=== PATIENT | female | born 1950 | race Caucasian/White ===

== ENCOUNTER 2020-05-06 08:23 | Outpatient (REF) | payer MEDICARE, SELFPAY ==
--- NOTE | 2020-05-06 08:27 | MM_ITS ---
EXAMINATION: MM SCREENING DIGITAL BREAST TOMOSYNTHESIS, BILATERAL CLINICAL INFORMATION: Screening. Asymptomatic. The lifetime risk of breast cancer based on the Tyrer-Cuzick Model is 5.4%. COMPARISON: Mammography: December 26, 2018 and studies dating back to July 21, 2010 TECHNIQUE: Digital breast tomosynthesis is performed in both the craniocaudal and mediolateral oblique views along with computer-aided detection (CAD). Synthesized 2D images are generated from the tomosynthesis. FINDINGS: The breasts are almost entirely fatty (ACR BI-RADS breast composition Category a). There are no significant masses, abnormal calcifications, or other abnormalities. MM/MM tomosynthesis screening BI IMPRESSION: There are no significant changes from prior study. ASSESSMENT: BI-RADS 1: Negative RECOMMENDATION: Routine annual mammography screening. This patient's information was entered into a reminder system with a target due date for their next mammogram.
== END 2020-05-06 08:24 | disposition home or self-care (01) ==
LOC: HO.MAMMO 08:23
DX: Z12.31 Encounter for screening mammogram for malignant neoplasm of breast (principal)
CPT/HCPCS: 77063; 77067

== ENCOUNTER → 2020-08-30 12:31 | Outpatient (BNVA) | payer MEDICARE, SELFPAY | PROVIDERS: PCP Internal Medicine; Visit Provider Internal Medicine | DX: I48.0 Paroxysmal atrial fibrillation (principal); H34.211 Partial retinal artery occlusion, right eye | CPT/HCPCS: 93005; 99212 ==

== ENCOUNTER 2020-09-29 11:51 | Outpatient (REF) | payer MEDICARE, SELFPAY ==
[2020-09-29 13:38] LABS: MANUAL DIFF FLAG NO
[2020-09-29 13:43] LABS: Basophils Percent Auto 0.5 % (0-2); Eosinophils Absolute Auto 0.1 X10*3/uL (0.0-0.4); Hematocrit 39.4 % (37-47); Hemoglobin 13.3 g/dl (12.0-16.0); Imm Gran Abs Auto 0.01 X10*3/uL (0.00-0.03); Imm Gran Pct Auto 0.3 % (0.0-0.4); Lymphocytes Absolute Auto 1.1 X10*3/uL (1.2-4.9); Lymphocytes Percent Auto 28.3 % (20-40); Mean Corpuscular HGB Conc 33.8 g/dl (31.0-35.0); Mean Corpuscular Hemoglobin 31.4 pg (27.0-33.0); Mean Corpuscular Volume 93.1 fL (80-98); Mean Platelet Volume 11.5 fL (9.4-12.3); Monocytes Absolute Auto 0.6 X10*3/uL (0.1-1.2); Monocytes Percent Auto 14.3 % (2-11); Neutrophils Absolute Auto 2.2 X10*3/uL (2.0-8.3); Neutrophils Percent Auto 54.6 % (45-73); Platelet Count 263 X10*3/uL (160-400); Red Blood Count 4.23 X10*6/uL (4.20-5.50); Red Cell Distribution Width 11.9 % (11.0-16.0)
[2020-09-29 14:05] LABS: Creatinine Urine 247.78 mg/dL; Microalbum/Creatinine Ratio Ur 9.6 ug/mg cr
[2020-09-29 14:06] LABS: Estimated Average Glucose 143 mg/dL; Hemoglobin A1c % 6.6 %
[2020-09-29 14:30] LABS: Alanine Aminotransferase 13 U/L (0-31); Albumin Level 4.4 g/dL (3.5-5.0); Alkaline Phosphatase 73 U/L (39-117); Anion Gap 12 (12-20); Aspartate Amino Transferase 16 U/L (5-31); Bilirubin Total 0.5 mg/dL (0.0-1.0); Blood Urea Nitrogen 13 mg/dL (9-16); Calcium 9.1 mg/dL (8.4-10.2); Carbon Dioxide 28 mmol/L (22-29); Chloride 102 mmol/L (96-108); Estimated Glomerular Filt Rate > 60; Glucose Random 151 mg/dL (60-115); Potassium 4.4 mmol/L (3.3-5.1); Sodium 138 mmol/L (135-145); Total Protein 7.4 g/dL (6.5-8.0)
[2020-09-29 14:41] LABS: Free T4 (Free Thyroxine) 1.24 ng/dL (0.71-1.85); Vitamin D 25-OH Total 46.2 ng/mL (>30)
== END 2020-09-29 11:52 | disposition home or self-care (01) ==
LOC: HO.10HDL 11:51
PROVIDERS: Visit Provider Internal Medicine
DX: I48.0 Paroxysmal atrial fibrillation (principal); I10 Essential (primary) hypertension; E03.9 Hypothyroidism, unspecified; E11.9 Type 2 diabetes mellitus without complications; E55.9 Vitamin D deficiency, unspecified
CPT/HCPCS: 36415; 80053; 82043; 82306; 83036; 84439; 84443; 85025

== ENCOUNTER → 2020-10-13 08:42 | Outpatient (BNVA) | payer MEDICARE, SELFPAY | PROVIDERS: PCP Internal Medicine; Visit Provider Internal Medicine | DX: I48.0 Paroxysmal atrial fibrillation (principal); H34.211 Partial retinal artery occlusion, right eye | CPT/HCPCS: 93005; 99212 ==

== ENCOUNTER → 2020-11-10 09:09 | Outpatient (REF) | payer MEDICARE, SELFPAY | LOC: HO.SL 09:09 | PROVIDERS: PCP Internal Medicine; Visit Provider Internal Medicine | DX: G47.33 Obstructive sleep apnea (adult) (pediatric) (principal); I48.0 Paroxysmal atrial fibrillation | CPT/HCPCS: 95806 ==

== ENCOUNTER → 2020-11-11 08:50 | Outpatient (REF) | payer MEDICARE, SELFPAY ==
--- NOTE | 2020-11-11 12:30 | ECG_ITS ---
Hook-up date: 2020-11-11 09:07:00 Duration: 47:59:00 Test Indications: PAF Medications: 358219 QRS complexes * Ventricular ectopics which represent % of total QRS comp. 232 Supraventricular ectopics which represent <1 % of total QRS comp. * Paced QRS complexs which represent % of total QRS comp. VENTRICULAR ECTOPY * Isolated * Bigeminal Cycles * Couplets * Runs * Beats in Runs * Beats LONGEST at * BPM at :: -- * Beats FASTEST at * BPM at :: -- SUPRAVENTRICULAR ECTOPY 155 Isolated 17 Couplets 10 Runs 44 Beats in Runs 9 Beats LONGEST at 122 BPM at 03:27:56 2020-11-13 3 Beats FASTEST at 159 BPM at 15:39:22 2020-11-11 HEART RATES 56 MIN at 05:32:34 2020-11-12 82 AVG 140 MAX at 11:36:29 2020-11-12 LONGEST RR 1.0880 secs at 04:37:34 2020-11-12 S-T LEVELS Channel 1 - 128 mm at 09:07:00 2020-11-11 - 128 mm at 09:07:00 2020-11-11 Channel 2 - 128 mm at 09:07:00 2020-11-11 - 128 mm at 09:07:00 2020-11-11 Channel 3 - 128 mm at 02:82:61 -- - 128 mm at 02:82:61 Basic rhythm Normal sinus rhythm No long pause or profound bradycardia Occasional Premature atrial complexes No diary submitted Referred By: Munir Ramirez Overread By: VIKTORIA KING MD
== END ==
LOC: HO.CARD 08:50
PROVIDERS: PCP Internal Medicine; Referring Provider Internal Medicine; Visit Provider Internal Medicine
DX: I48.0 Paroxysmal atrial fibrillation (principal)
CPT/HCPCS: 93226

== ENCOUNTER → 2020-12-08 13:05 | Outpatient (BNVA) | payer MEDICARE, SELFPAY | PROVIDERS: PCP Internal Medicine; Referring Provider Internal Medicine; Visit Provider Internal Medicine | DX: I48.0 Paroxysmal atrial fibrillation (principal); G47.33 Obstructive sleep apnea (adult) (pediatric); H34.211 Partial retinal artery occlusion, right eye; R07.2 Precordial pain | CPT/HCPCS: 99212 ==

== ENCOUNTER → 2020-12-21 13:17 | Outpatient (BNVA) | payer MEDICARE, SELFPAY | PROVIDERS: PCP Internal Medicine; Visit Provider Internal Medicine | DX: G47.33 Obstructive sleep apnea (adult) (pediatric) (principal); G47.34 Idiopathic sleep related nonobstructive alveolar hypoventilation | CPT/HCPCS: 99202 ==

== ENCOUNTER 2020-12-29 10:04 | Outpatient (REF) | payer MEDICARE, SELFPAY ==
[2020-12-29 10:53] LABS: Estimated Average Glucose 151 mg/dL; Hemoglobin A1c % 6.9 %
[2020-12-29 10:55] LABS: Glucose Urine UA NEG (NEG); Leukocyte Esterase Urine NEG (NEG); Nitrite Urine NEG (NEG); Urine Blood NEG (NEG); Urine Ketones NEG (NEG); Urine Protein NEG (NEG-TRACE)
[2020-12-29 10:56] LABS: Appearance Urine CLEAR; Color Urine YELLOW
[2020-12-29 11:10] LABS: Alanine Aminotransferase 15 U/L (0-31); Albumin Level 4.3 g/dL (3.5-5.0); Alkaline Phosphatase 87 U/L (39-117); Anion Gap 11 (12-20); Aspartate Amino Transferase 17 U/L (5-31); Bilirubin Total 0.6 mg/dL (0.0-1.0); Blood Urea Nitrogen 13 mg/dL (9-16); Calcium 9.5 mg/dL (8.4-10.2); Carbon Dioxide 31 mmol/L (22-29); Chloride 103 mmol/L (96-108); Estimated Glomerular Filt Rate > 60; Glucose Random 177 mg/dL (60-115); Potassium 4.6 mmol/L (3.3-5.1); Sodium 140 mmol/L (135-145); Total Protein 7.2 g/dL (6.5-8.0)
== END 2020-12-29 10:05 | disposition home or self-care (01) ==
LOC: HO.LAB 10:04
PROVIDERS: PCP Internal Medicine; Visit Provider Internal Medicine
DX: E11.9 Type 2 diabetes mellitus without complications (principal); I48.0 Paroxysmal atrial fibrillation; G47.33 Obstructive sleep apnea (adult) (pediatric); R30.0 Dysuria
CPT/HCPCS: 36415; 80053; 81003; 83036; 87086; 87088

== ENCOUNTER → 2021-02-28 13:00 | Outpatient (BNVA) | payer MEDICARE, SELFPAY | PROVIDERS: PCP Internal Medicine; Referring Provider Internal Medicine; Visit Provider Internal Medicine | DX: I48.0 Paroxysmal atrial fibrillation (principal); I65.23 Occlusion and stenosis of bilateral carotid arteries; R07.2 Precordial pain; G47.33 Obstructive sleep apnea (adult) (pediatric); H34.211 Partial retinal artery occlusion, right eye | CPT/HCPCS: 99212 ==

== ENCOUNTER → 2021-03-07 10:19 | Outpatient (BNVA) | payer MEDICARE, SELFPAY | PROVIDERS: PCP Internal Medicine; Visit Provider Internal Medicine | DX: G47.33 Obstructive sleep apnea (adult) (pediatric) (principal); G47.34 Idiopathic sleep related nonobstructive alveolar hypoventilation | CPT/HCPCS: 99212 ==

== ENCOUNTER 2021-03-15 13:33 | Outpatient (REF) | payer MEDICARE, SELFPAY ==
[2021-03-15 14:36] LABS: Urine Cytology See Pathology rpt
[2021-03-15 14:42] LABS: Glucose Urine UA NEG (NEG); Leukocyte Esterase Urine NEG (NEG); Nitrite Urine NEG (NEG); Specific Gravity - Urine <= 1.005 (1.005-1.025); Urine Blood 3+ (NEG); Urine Ketones NEG (NEG); Urine Protein TRACE MG/DL (NEG-TRACE)
[2021-03-15 14:50] LABS: Appearance Urine HAZY; Color Urine OTHER; RBC Urine 30-49 /HPF (0); Squamous Epithelial Cell Urine TRACE /LPF; WBC Urine 0-2 /HPF (0-4)
== END 2021-03-15 13:34 | disposition home or self-care (01) ==
LOC: HO.LAB 13:33
PROVIDERS: PCP Internal Medicine; Visit Provider Internal Medicine
DX: R31.9 Hematuria, unspecified (principal)
CPT/HCPCS: 81001; 87086; 88112

== ENCOUNTER 2021-04-21 11:45 | Outpatient (REF) | payer MEDICARE, SELFPAY ==
[2021-04-21 13:49] LABS: MANUAL DIFF FLAG NO
[2021-04-21 13:53] LABS: Basophils Percent Auto 0.3 % (0-2); Eosinophils Absolute Auto 0.1 X10*3/uL (0.0-0.4); Eosinophils Percent Auto 1.9 % (0-4); Hematocrit 37.4 % (37-47); Imm Gran Abs Auto 0.02 X10*3/uL (0.00-0.03); Imm Gran Pct Auto 0.3 % (0.0-0.4); Lymphocytes Absolute Auto 1.5 X10*3/uL (1.2-4.9); Lymphocytes Percent Auto 23.2 % (20-40); Mean Corpuscular HGB Conc 32.1 g/dl (31.0-35.0); Mean Corpuscular Hemoglobin 30.5 pg (27.0-33.0); Mean Corpuscular Volume 94.9 fL (80-98); Mean Platelet Volume 10.3 fL (9.4-12.3); Monocytes Absolute Auto 0.5 X10*3/uL (0.1-1.2); Monocytes Percent Auto 7.3 % (2-11); Neutrophils Absolute Auto 4.3 X10*3/uL (2.0-8.3); Platelet Count 324 X10*3/uL (160-400); Red Blood Count 3.94 X10*6/uL (4.20-5.50); Red Cell Distribution Width 12.1 % (11.0-16.0); White Blood Count 6.4 X10*3/uL (4.8-10.8)
[2021-04-21 14:03] LABS: Appearance Urine CLEAR; Color Urine YELLOW; Glucose Urine UA 250 MG/DL (NEG); Leukocyte Esterase Urine TRACE (NEG); Nitrite Urine NEG (NEG); Specific Gravity - Urine 1.015 (1.005-1.025); Urine Blood TRACE (NEG); Urine Ketones NEG (NEG); Urine Protein NEG (NEG-TRACE)
[2021-04-21 14:18] LABS: Mucus Urine 2+ /LPF; Renal Epithelial Cells Urine 1+ /LPF; Squamous Epithelial Cell Urine 1+ /LPF; WBC Urine 50-75 /HPF (0-4)
[2021-04-21 14:19] LABS: Estimated Average Glucose 154 mg/dL
[2021-04-21 14:25] LABS: Alanine Aminotransferase 21 U/L (0-31); Albumin Level 4.5 g/dL (3.5-5.0); Alkaline Phosphatase 83 U/L (39-117); Anion Gap 12 (12-20); Aspartate Amino Transferase 16 U/L (5-31); Bilirubin Total 0.4 mg/dL (0.0-1.0); Blood Urea Nitrogen 13 mg/dL (9-16); Calcium 9.7 mg/dL (8.4-10.2); Carbon Dioxide 28 mmol/L (22-29); Chloride 104 mmol/L (96-108); Estimated Glomerular Filt Rate > 60; Glucose Random 216 mg/dL (60-115); Iron 85 mcg/dL (30-160); Percent Iron Saturation 27 % (15-50); Potassium 4.4 mmol/L (3.3-5.1); Sodium 140 mmol/L (135-145); Total Iron Binding Capacity 315 mcg/dL (228-428); Total Protein 7.6 g/dL (6.5-8.0); Unsaturated Iron Binding 230 ug/dL
[2021-04-21 14:45] LABS: Creatinine Urine 52.98 mg/dL; Microalbumin Urine < 5.0 mg/L
[2021-04-21 14:48] LABS: Free T4 (Free Thyroxine) 1.49 ng/dL (0.71-1.85); Thyroid Stimulating Hormone 0.44 uIU/mL (0.32-4.0)
== END 2021-04-21 11:46 | disposition home or self-care (01) ==
LOC: HO.10HDL 11:45
PROVIDERS: Visit Provider Internal Medicine
DX: N20.0 Calculus of kidney (principal); I48.0 Paroxysmal atrial fibrillation; E11.9 Type 2 diabetes mellitus without complications; E03.9 Hypothyroidism, unspecified
CPT/HCPCS: 36415; 80053; 81001; 81003; 82043; 83036; 83540; 84439; 84443; 85025

== ENCOUNTER 2021-05-15 12:03 | Outpatient (REF) | payer MEDICARE, SELFPAY ==
--- NOTE | ~2021-05-15 | MM_ITS ---
EXAMINATION: MM SCREENING DIGITAL BREAST TOMOSYNTHESIS, BILATERAL CLINICAL INFORMATION: Screening. Asymptomatic. The lifetime risk of breast cancer based on the Tyrer-Cuzick Model is 6%. COMPARISON: Mammography: 05/06/2020, 12/26/2018, 12/23/2017 TECHNIQUE: Digital breast tomosynthesis is performed in both the craniocaudal and mediolateral oblique views along with computer-aided detection (CAD). Synthesized 2D images are generated from the tomosynthesis. FINDINGS: There are scattered areas of fibroglandular density (ACR BI-RADS breast composition Category b). There are no significant masses, abnormal calcifications, or other abnormalities. Parenchymal pattern is similar to prior exams. No developing density. No significant changes. MM/MM tomosynthesis screening BI IMPRESSION: No mammographic evidence of malignancy. ASSESSMENT: BI-RADS 1: Negative RECOMMENDATION: Routine annual mammography screening. This patient's information was entered into a reminder system with a target due date for their next mammogram.
== END 2021-05-15 12:04 | disposition home or self-care (01) ==
LOC: HO.MAMMO 12:03
PROVIDERS: Visit Provider Internal Medicine
DX: Z12.31 Encounter for screening mammogram for malignant neoplasm of breast (principal)
CPT/HCPCS: 77063; 77067

== ENCOUNTER → 2021-08-03 13:24 | Outpatient (BNVA) | payer MEDICARE, SELFPAY | PROVIDERS: PCP Internal Medicine; Visit Provider Internal Medicine | DX: G47.33 Obstructive sleep apnea (adult) (pediatric) (principal); G47.34 Idiopathic sleep related nonobstructive alveolar hypoventilation; R43.9 Unspecified disturbances of smell and taste | CPT/HCPCS: 99212 ==

== ENCOUNTER → 2021-08-16 11:07 | Outpatient (BNVA) | payer MEDICARE, SELFPAY | PROVIDERS: PCP Internal Medicine; Referring Provider Internal Medicine; Visit Provider Internal Medicine | DX: I65.23 Occlusion and stenosis of bilateral carotid arteries (principal); G47.33 Obstructive sleep apnea (adult) (pediatric); H34.211 Partial retinal artery occlusion, right eye; R07.2 Precordial pain; Z79.01 Long term (current) use of anticoagulants | CPT/HCPCS: 99212 ==

== ENCOUNTER 2021-09-01 09:12 | Outpatient (REF) | payer MEDICARE, SELFPAY ==
[2021-09-01 09:30] LABS: MANUAL DIFF FLAG NO
[2021-09-01 10:00] LABS: Basophils Percent Auto 0.6 % (0-2); Eosinophils Absolute Auto 0.2 X10*3/uL (0.0-0.4); Eosinophils Percent Auto 3.6 % (0-4); Hematocrit 37.8 % (37.0-47.0); Hemoglobin 12.3 g/dl (12.0-16.0); Imm Gran Abs Auto 0.01 X10*3/uL (0.00-0.03); Imm Gran Pct Auto 0.2 % (0.0-0.4); Lymphocytes Absolute Auto 1.9 X10*3/uL (1.2-4.9); Lymphocytes Percent Auto 35.5 % (20-40); Mean Corpuscular HGB Conc 32.5 g/dl (31.0-35.0); Mean Corpuscular Hemoglobin 29.5 pg (27.0-33.0); Mean Corpuscular Volume 90.6 fL (80.0-98.0); Mean Platelet Volume 10.7 fL (9.4-12.3); Monocytes Absolute Auto 0.4 X10*3/uL (0.1-1.2); Monocytes Percent Auto 7.4 % (2-11); Neutrophils Absolute Auto 2.8 x10*3/uL (2.0-8.3); Neutrophils Percent Auto 52.7 % (45-73); Platelet Count 238 X10*3/uL (160-400); Red Blood Count 4.17 X10*6/uL (4.20-5.50); White Blood Count 5.3 X10*3/uL (4.8-10.8)
[2021-09-01 10:26] LABS: Estimated Average Glucose 169 mg/dL; Hemoglobin A1c % 7.5 %
[2021-09-01 10:34] LABS: Alanine Aminotransferase 18 U/L (0-31); Albumin Level 4.2 g/dL (3.5-5.0); Alkaline Phosphatase 75 U/L (39-117); Anion Gap 9 (12-20); Aspartate Amino Transferase 17 U/L (5-31); Bilirubin Total 0.5 mg/dL (0.0-1.0); Blood Urea Nitrogen 13 mg/dL (9-16); Calcium 9.4 mg/dL (8.4-10.2); Carbon Dioxide 28 mmol/L (22-29); Chloride 105 mmol/L (96-108); Cholesterol 126 mg/dL; Estimated Glomerular Filt Rate > 60; Glucose Fasting 149 mg/dL (60-99); HDL Cholesterol 43 mg/dL; LDL Cholesterol Calculated 68 mg/dl; Potassium 4.4 mmol/L (3.3-5.1); Sodium 138 mmol/L (135-145); Total Protein 7.1 g/dL (6.5-8.0); Triglycerides 78 mg/dL
[2021-09-01 10:54] LABS: Free T4 (Free Thyroxine) 1.49 ng/dL (0.71-1.85); Thyroid Stimulating Hormone 0.32 uIU/mL (0.32-4.0)
[2021-09-01 11:18] LABS: Creatinine Urine 147.03 mg/dL; Microalbum/Creatinine Ratio Ur 9.5 ug/mg cr
== END 2021-09-01 09:13 | disposition home or self-care (01) ==
LOC: HO.LAB 09:12
PROVIDERS: PCP Internal Medicine; Visit Provider Internal Medicine
DX: E03.9 Hypothyroidism, unspecified (principal); I48.0 Paroxysmal atrial fibrillation; E78.00 Pure hypercholesterolemia, unspecified; E11.9 Type 2 diabetes mellitus without complications
CPT/HCPCS: 36415; 80053; 80061; 82043; 83036; 84439; 84443; 85025

== ENCOUNTER → 2021-09-20 11:07 | Outpatient (BNVA) | payer MEDICARE, SELFPAY | PROVIDERS: PCP Internal Medicine; Visit Provider Internal Medicine | DX: G47.33 Obstructive sleep apnea (adult) (pediatric) (principal); G47.34 Idiopathic sleep related nonobstructive alveolar hypoventilation; Z99.89 Dependence on other enabling machines and devices | CPT/HCPCS: 99212 ==

== ENCOUNTER 2021-12-04 11:04 | Outpatient (REF) | payer MEDICARE, SELFPAY ==
[2021-12-04 13:25] LABS: Anion Gap 14 (12-20); Blood Urea Nitrogen 9 mg/dL (9-16); Calcium 9.6 mg/dL (8.4-10.2); Carbon Dioxide 26 mmol/L (22-29); Chloride 103 mmol/L (96-108); Estimated Glomerular Filt Rate > 60; Glucose Random 199 mg/dL (60-115); Potassium 4.5 mmol/L (3.3-5.1); Sodium 138 mmol/L (135-145)
[2021-12-04 13:27] LABS: Estimated Average Glucose 157 mg/dL; Hemoglobin A1c % 7.1 %
[2021-12-04 13:51] LABS: Free T4 (Free Thyroxine) 1.59 ng/dL (0.71-1.85); Thyroid Stimulating Hormone 0.28 uIU/mL (0.32-4.0)
== END 2021-12-04 11:05 | disposition home or self-care (01) ==
LOC: HO.10HDL 11:04
PROVIDERS: Visit Provider Internal Medicine
DX: I48.0 Paroxysmal atrial fibrillation (principal); R00.2 Palpitations; E11.9 Type 2 diabetes mellitus without complications
CPT/HCPCS: 36415; 80048; 83036; 84439; 84443

== ENCOUNTER → 2022-01-30 08:20 | Outpatient (BNVA) | payer MEDICARE, SELFPAY | PROVIDERS: PCP Internal Medicine; Visit Provider Nurse Practitioner Family | DX: R00.2 Palpitations (principal); Z86.79 Personal history of other diseases of the circulatory system | CPT/HCPCS: 93005 ==

== ENCOUNTER → 2022-02-05 07:22 | Outpatient (REF) | payer MEDICARE, SELFPAY ==
--- NOTE | 2022-02-05 07:25 | HM_ITS ---
* Total monitoring time 3 days and 1 hour. * Underlying rhythm is sinus. Average rate 80/Min. Range 57 to 135/Min. * No atrial fibrillation or flutter or AV blocks or pauses. * Occasional supraventricular ectopy. Low burden. The episode described to be about a minute long seems to be sinus tachycardia at 138/Min. * Palpitations/skipping reported in diary associated with sinus tachycardia and supraventricular ectopy. MTDD
== END ==
LOC: HO.CARD 07:22
PROVIDERS: PCP Internal Medicine; Visit Provider Nurse Practitioner Family
DX: I48.0 Paroxysmal atrial fibrillation (principal); R00.2 Palpitations
CPT/HCPCS: 93242

== ENCOUNTER → 2022-02-28 12:48 | Outpatient (BNVA) | payer MEDICARE, SELFPAY | PROVIDERS: PCP Internal Medicine; Referring Provider Internal Medicine; Visit Provider Internal Medicine | DX: I48.0 Paroxysmal atrial fibrillation (principal); H34.211 Partial retinal artery occlusion, right eye; G47.33 Obstructive sleep apnea (adult) (pediatric); I65.23 Occlusion and stenosis of bilateral carotid arteries; Z79.01 Long term (current) use of anticoagulants; Z79.899 Other long term (current) drug therapy; Z99.89 Dependence on other enabling machines and devices | CPT/HCPCS: 99212 ==

== ENCOUNTER 2022-03-06 11:18 | Outpatient (REF) | payer MEDICARE, SELFPAY ==
[2022-03-06 13:57] LABS: Estimated Average Glucose 154 mg/dL
[2022-03-06 14:02] LABS: Alanine Aminotransferase 13 U/L (0-31); Albumin Level 4.3 g/dL (3.5-5.0); Alkaline Phosphatase 77 U/L (39-117); Anion Gap 13 (12-20); Aspartate Amino Transferase 16 U/L (5-31); Bilirubin Total 0.5 mg/dL (0.0-1.0); Blood Urea Nitrogen 14 mg/dL (9-16); Calcium 9.7 mg/dL (8.4-10.2); Carbon Dioxide 30 mmol/L (22-29); Chloride 102 mmol/L (96-108); Estimated Glomerular Filt Rate > 60; Glucose Random 189 mg/dL (60-115); Potassium 4.5 mmol/L (3.3-5.1); Sodium 140 mmol/L (135-145); Total Protein 7.2 g/dL (6.5-8.0)
[2022-03-06 14:24] LABS: Thyroid Stimulating Hormone 0.37 uIU/mL (0.32-4.0)
== END 2022-03-06 11:19 | disposition home or self-care (01) ==
LOC: HO.10HDL 11:18
PROVIDERS: Visit Provider Internal Medicine
DX: E11.9 Type 2 diabetes mellitus without complications (principal); E03.9 Hypothyroidism, unspecified; I10 Essential (primary) hypertension
CPT/HCPCS: 36415; 80053; 83036; 84439; 84443

== ENCOUNTER → 2022-03-22 10:56 | Outpatient (BNVA) | payer MEDICARE, SELFPAY | PROVIDERS: PCP Internal Medicine; Visit Provider Internal Medicine | DX: G47.33 Obstructive sleep apnea (adult) (pediatric) (principal); E66.9 Obesity, unspecified; Z68.33 Body mass index [BMI] 33.0-33.9, adult; I48.0 Paroxysmal atrial fibrillation | CPT/HCPCS: 99212 ==

== ENCOUNTER 2022-05-21 11:45 | Outpatient (REF) | payer MEDICARE, SELFPAY ==
--- NOTE | ~2022-05-21 | MM_ITS ---
EXAMINATION: MM SCREENING DIGITAL BREAST TOMOSYNTHESIS, BILATERAL CLINICAL INFORMATION: Screening. Asymptomatic. COMPARISON: Mammography: 05/15/2021, 05/06/2020, 12/26/2018 TECHNIQUE: Digital breast tomosynthesis is performed in both the craniocaudal and mediolateral oblique views along with computer-aided detection (CAD). Synthesized 2D images are generated from the tomosynthesis. FINDINGS: There are scattered areas of fibroglandular density (ACR BI-RADS breast composition Category b). There are no significant masses, abnormal calcifications, or other abnormalities. Parenchymal pattern is similar to prior studies. There is no developing density or architectural abnormality. The axilla and skin contours are unremarkable. No significant changes. MM/MM tomosynthesis screening BI IMPRESSION: No mammographic evidence of malignancy. ASSESSMENT: BI-RADS 1: Negative RECOMMENDATION: Routine annual mammography screening. This patient's information was entered into a reminder system with a target due date for their next mammogram.
== END 2022-05-21 11:46 | disposition home or self-care (01) ==
LOC: HO.MAMMO 11:45
PROVIDERS: PCP Internal Medicine; Visit Provider Internal Medicine
DX: Z12.31 Encounter for screening mammogram for malignant neoplasm of breast (principal)
CPT/HCPCS: 77063; 77067

== ENCOUNTER 2022-10-09 08:53 | Outpatient (REF) | payer MEDICARE, SELFPAY ==
[2022-10-09 11:06] LABS: MANUAL DIFF FLAG NO
[2022-10-09 11:07] LABS: Creatinine Urine 165.07 mg/dL; Microalbum/Creatinine Ratio Ur 10.9 ug/mg cr
[2022-10-09 11:14] LABS: Basophils Percent Auto 0.6 % (0-2); Eosinophils Absolute Auto 0.2 X10*3/uL (0.0-0.4); Hematocrit 38.4 % (37.0-47.0); Hemoglobin 12.6 g/dl (12.0-16.0); Lymphocytes Absolute Auto 1.6 X10*3/uL (1.2-4.9); Lymphocytes Percent Auto 34.4 % (20-40); Mean Corpuscular HGB Conc 32.8 g/dl (31.0-35.0); Mean Corpuscular Hemoglobin 30.6 pg (27.0-33.0); Mean Corpuscular Volume 93.2 fL (80.0-98.0); Mean Platelet Volume 11.5 fL (9.4-12.3); Monocytes Absolute Auto 0.5 X10*3/uL (0.1-1.2); Monocytes Percent Auto 10.1 % (2-11); Neutrophils Absolute Auto 2.4 x10*3/uL (2.0-8.3); Neutrophils Percent Auto 49.9 % (45-73); Platelet Count 245 X10*3/uL (160-400); Red Blood Count 4.12 X10*6/uL (4.20-5.50); Red Cell Distribution Width 11.8 % (11.0-16.0); White Blood Count 4.8 X10*3/uL (4.8-10.8)
[2022-10-09 12:08] LABS: Estimated Average Glucose 166 mg/dL; Hemoglobin A1c % 7.4 %
[2022-10-09 12:09] LABS: Alanine Aminotransferase 18 U/L (0-31); Albumin Level 4.2 g/dL (3.5-5.0); Alkaline Phosphatase 78 U/L (39-117); Anion Gap 11 (12-20); Aspartate Amino Transferase 21 U/L (5-31); Bilirubin Total 0.7 mg/dL (0.0-1.0); Blood Urea Nitrogen 12 mg/dL (9-16); Calcium 9.2 mg/dL (8.4-10.2); Carbon Dioxide 28 mmol/L (22-29); Chloride 105 mmol/L (96-108); Cholesterol 133 mg/dL; Estimated Glomerular Filt Rate > 60; Free T4 (Free Thyroxine) 1.42 ng/dL (0.71-1.85); Glucose Fasting 169 mg/dL (60-99); HDL Cholesterol 47 mg/dL; LDL Cholesterol Calculated 72 mg/dl; Potassium 4.4 mmol/L (3.3-5.1); Sodium 140 mmol/L (135-145); Thyroid Stimulating Hormone 0.47 uIU/mL (0.32-4.0); Total Protein 6.9 g/dL (6.5-8.0); Triglycerides 74 mg/dL; Vitamin D 25-OH Total 70.4 ng/mL (>30)
== END 2022-10-09 08:54 | disposition home or self-care (01) ==
LOC: HO.10HDL 08:53
PROVIDERS: Visit Provider Internal Medicine
DX: E78.00 Pure hypercholesterolemia, unspecified (principal); I48.0 Paroxysmal atrial fibrillation; E11.9 Type 2 diabetes mellitus without complications; E03.9 Hypothyroidism, unspecified; I10 Essential (primary) hypertension; E55.9 Vitamin D deficiency, unspecified
CPT/HCPCS: 36415; 80053; 80061; 82043; 82306; 83036; 84439; 84443; 85025

== ENCOUNTER → 2022-10-22 08:48 | Outpatient (BNVA) | payer MEDICARE, SELFPAY | PROVIDERS: PCP Internal Medicine; Visit Provider Internal Medicine | DX: G47.33 Obstructive sleep apnea (adult) (pediatric) (principal); E66.9 Obesity, unspecified; Z68.36 Body mass index [BMI] 36.0-36.9, adult | CPT/HCPCS: 99212 ==

== ENCOUNTER 2022-12-16 18:20 | Emergency (ER) | payer MEDICARE, SELFPAY ==
--- NOTE | 2022-12-16 | ECG_ITS ---
Test Reason : AFIBB Blood Pressure : / mmHG Vent. Rate : 097 BPM Atrial Rate : 097 BPM P-R Int : 128 ms QRS Dur : 086 ms QT Int : 358 ms P-R-T Axes : 034 015 043 degrees QTc Int : 454 ms Normal sinus rhythm Normal ECG When compared with ECG of 16-DEC-2022 18:27, Sinus rhythm has replaced Atrial fibrillation ST no longer depressed in Anterolateral leads Nonspecific T wave abnormality, improved in Inferior leads Referred By: Generic ED Physician Electronically Signed By:Spencer Wade
[2022-12-16 18:23] VITALS: BP 109/70; PULSE 135; RESP 18; TEMP 36.4; O2SAT 98; BMI 37.2
--- NOTE | 2022-12-16 18:27 | ECG_ITS ---
Test Reason : PALPITATIONS Blood Pressure : / mmHG Vent. Rate : 141 BPM Atrial Rate : 000 BPM P-R Int : 000 ms QRS Dur : 082 ms QT Int : 264 ms P-R-T Axes : 000 030 081 degrees QTc Int : 404 ms Atrial fibrillation with rapid ventricular response Nonspecific ST and T wave abnormality Abnormal ECG When compared with ECG of 06-SEP-2019 02:34, Atrial fibrillation has replaced Sinus rhythm Vent. rate has increased BY 49 BPM Nonspecific T wave abnormality, worse in Inferior leads Nonspecific T wave abnormality now evident in Lateral leads Referred By: Generic ED Physician Electronically Signed By:Spencer Wade
--- NOTE | 2022-12-16 18:31 | ED.GENADULT ---
HPI - General Adult General Chief complaint: Arrhythmia/Palpitations Stated complaint: afib/cant breath Time Seen by Provider: 12/16/22 21:49 Source: patient and family Mode of arrival: ambulatory Limitations: no limitations History of Present Illness HPI narrative: 72-year-old female with history of paroxysmal AFib patient is taking Eliquis and diltiazem for AFib management. Patient follow-up with Dr. 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 Ramirez to take 1 extra dose of diltiazem and wait 1 hour if she is not converting to sinus rhythm to come to the ED while patient waiting in the emergency department patient converted into a sinus rhythm. Patient has no CP, no weakness, no numbness, no sign of strokes. Patient mentioned that Eliquis was held for 3 days for lithotripsy, patient just resumed her Eliquis today. Related Data Home Medications Medication Instructions Recorded Confirmed cholecalciferol (vitamin D3) 100 100 mcg PO DAILY 08/22/20 03/22/22 mcg (4,000 unit) capsule levothyroxine 100 mcg tablet 100 mcg PO DAILY 08/22/20 03/22/22 (Synthroid) metformin 500 mg tablet,extended 500 mg PO DAILY 12/08/20 03/22/22 release 24 hr pantoprazole 40 mg tablet,delayed 40 mg PO DAILY 08/03/21 03/22/22 release gabapentin 300 mg capsule mg PO 10/22/22 mirabegron 25 mg tablet,extended 25 mg PO DAILY 10/22/22 release 24 hr (Myrbetriq) Previous Rx's Medication Instructions Recorded apixaban 5 mg tablet (Eliquis) 5 mg PO BID #180 tabs 03/20/22 rosuvastatin 40 mg tablet (Crestor) 40 mg PO DAILY #90 tabs 03/21/22 diltiazem HCl 120 mg 120 mg PO DAILY #90 caps 07/30/22 capsule,extended release 24 hr (Cardizem CD) Allergies Allergy/AdvReac Type Severity Reaction Status Date / Time Sulfa (Sulfonamide Allergy Intermediate RASH Verified 12/16/22 18:23 Antibiotics) [SULFA (SULFONAMIDE ANTIBIOTICS)] MONSULFITES Allergy Severe ANAPHYLAXIS Uncoded 10/22/22 09:16 Review of Systems Review of Systems: All other systems are reviewed and are negative Constitutional: Reports as per HPI and Reports no additional constitutional complaints Eyes: Reports as per HPI and Reports no additional eye complaints Reports system reviewed and no additional complaints, except as documented Cardiovascular: Reports as per HPI and Reports no additional cardiovascular complaints Respiratory: Reports as per HPI and Reports no additional respiratory complaints Gastrointestinal: Reports as per HPI and Reports no additional gastrointestinal complaints Genitourinary: Reports no additional female genitourinary complaints Musculoskeletal: Reports no additional musculoskeletal complaints Skin/Breast: Reports system reviewed and no additional complaints, except as docu Psychiatric: Reports no additional psychiatric complaints Endocrine: Reports no additional endocrine complaints Hematologic/Lymphatic: Reports no additional hematologic/lymphatic complaints Allergic/Immunologic: Reports no additional allergic/immunologic complaints Reports system reviewed and no additional complaints, except as documented and Reports Abnormal speech present [facility] Past Medical History Medical History Bilateral carotid artery stenosis Cholesterol retinal embolus of right eye Nocturnal hypoxemia Obesity (BMI 30-39.9) Paroxysmal atrial fibrillation Taste disorder Surgical History History of section History of knee surgery Family History Family History Father CVD (cardiovascular disease) Mother No problems noted. Social History Social History Alcohol intake: never Patient Tobacco Use Status: Former Tobacco user Smoked in Last 30 Days: No Use of substances other than those prescribed or required for medical reasons: No Advance Directives: No Advance Directives Information Provided: No Physical Exam ED Vital Signs: Vital Signs - 24 hr 12/16/22 18:23 12/16/22 19:26 12/16/22 22:00 Temperature 97.6 F 98.0 F 97.9 F Pulse Rate 135 H 94 82 Respiratory Rate 18 16 15 Blood Pressure 109/70 142/78 H 121/53 L Pulse Oximetry 98 98 98 Oxygen Delivery Method Room Air Room Air Room Air BMI result Body Mass Index 37.2 Vital signs have been reviewed as appeared to be correct. Blood pressure normal. Heart rate normal. Respiration rate normal. Temperature normal. Oxygen saturation normal. Appearance: Alert. Oriented X3. No acute distress. Head: Normal external exam. Normocephalic. Atraumatic. No Hammonds signs noted. No raccoon eyes noted Eyes: PERRLA. EOMI. Conjunctiva and sclera normal. Eyelids normal. ENT: TM's Normal. Pharynx normal. Uvula midline. Moist mucous membranes. No trismus noted. No drooling noted. No muffled voice noted. Neck: Normal inspection. Neck supple. FROM. No adenopathy. Thyroid Normal. No meningeal signs. No neck mass noted. CVS: Normal heart rate and rhythm. Heart sound normal. No murmurs noted. Pulses normal throughout. Respiratory: No respiratory distress. Painless inspiration. Breath sounds normal. No wheezes/rales/rhonchi noted. Chest nontender. No accessory muscle usage noted or decreased air movement noted. Abdomen: Soft and nontender. Bowel sounds normal in all 4 quadrants. No distention noted. No organomegaly noted. No visible injury noted. Back: No CVA tenderness. Full range of motion noted. Skin: Skin warm and dry. Normal skin color. Normal skin turgor. No rashes/lesions/lacerations noted. Extremities: No lower extremity edema. Extremities exhibit normal range of motion. Extremities nontender. Neuro: Oriented X 3. Cranial nerve exam: II-XII are grossly intact No motor deficit. No sensory deficit. Reflexes normal. Course Course Course Narrative: RME: 72 yold female presents to the ED for palpitaions. Patient has pmh of afib and is on eliquis. Heart 130s. EKG and labs ordered. patient to be brought inside Reevaluation(s) Reevaluation #1: 72-year-old female with history of paroxysmal atrial fibrillation patient now is comfortable with no symptoms, no CP, no SOB, now in normal sinus rhythm. Patient was instructed to follow up with Dr. Ramirez continue with Eliquis and taken diltiazem on a regular basis. Medical Decision Making Differential Diagnosis Differential Diagnoses: The differential diagnosis associated with the presentation includes (AFib with RVR, ACS, CHF, electrolyte abnormalities, hypercoagulability, severe anemia.) Admission/Observation Consideration of admission/observation: Escalation of care including admission/observation considered Lab Data MDM Lab Attestation statement: I reviewed the patient's lab results. 12/16/22 18:55 12/16/22 18:55 Labs: Lab Results 12/16/22 12/16/22 12/16/22 Range/Units 18:54 18:55 18:55 WBC 7.8 (4.8-10.8) X10*3/uL RBC 4.07 L (4.20-5.50) X10*6/uL Hgb 12.4 (12.0-16.0) g/dl Hct 37.9 (37.0-47.0) % MCV 93.1 (80.0-98.0) fL MCH 30.5 (27.0-33.0) pg MCHC 32.7 (31.0-35.0) g/dl RDW 12.1 (11.0-16.0) % Plt Count 247 (160-400) X10*3/uL MPV 10.6 (9.4-12.3) fL Immature Gran % (Auto) 0.3 (0.0-0.4) % Neut % (Auto) 69.4 (45-73) % Lymph % (Auto) 18.9 L (20-40) % Bulloch % (Auto) 8.4 (2-11) % Eos % (Auto) 2.7 (0-4) % Baso % (Auto) 0.3 (0-2) % Lymph # (Auto) 1.5 (1.2-4.9) X10*3/uL Bulloch # (Auto) 0.7 (0.1-1.2) X10*3/uL Eos # (Auto) 0.2 (0.0-0.4) X10*3/uL Baso # (Auto) 0.0 (0.0-0.2) X10*3/uL Abs Immat Gran (auto) 0.02 (0.00-0.03) X10*3/uL Absolute Neuts (auto) 5.4 (2.0-8.3) x10*3/uL Absolute Nucleated RBC 0.000 (0.0-0.012) X10*3/uL Nucleated RBC % (auto) 0.0 (0.0-0.2) /100WBC PT 11.1 (10.0-13.1) SEC INR 1.0 (0.9-1.1) APTT 30.2 (26.0-36.4) SEC Sodium 145 (135-145) mmol/L Potassium 4.4 (3.3-5.1) mmol/L Chloride 106 (96-108) mmol/L Carbon Dioxide 28 (22-29) mmol/L Anion Gap 15 (12-20) BUN 16 (9-16) mg/dL Creatinine 0.96 (0.5-1.4) mg/dL Estim Creat Clear Calc 64.3 Estimated GFR 57 Random Glucose 339 H (60-115) mg/dL Calcium 9.7 (8.4-10.2) mg/dL Total Bilirubin 0.4 (0.0-1.0) mg/dL AST 16 (5-31) U/L ALT 15 (0-31) U/L Alkaline Phosphatase 108 (39-117) U/L Troponin I High Sens (<3.5-17.0) ng/L B-Natriuretic Peptide (<100) pg/mL Total Protein 7.3 (6.5-8.0) g/dL Albumin 4.2 (3.5-5.0) g/dL TSH 3.82 (0.32-4.0) uIU/mL 12/16/22 12/16/22 Range/Units 18:55 18:58 WBC (4.8-10.8) X10*3/uL RBC (4.20-5.50) X10*6/uL Hgb (12.0-16.0) g/dl Hct (37.0-47.0) % MCV (80.0-98.0) fL MCH (27.0-33.0) pg MCHC (31.0-35.0) g/dl RDW (11.0-16.0) % Plt Count (160-400) X10*3/uL MPV (9.4-12.3) fL Immature Gran % (Auto) (0.0-0.4) % Neut % (Auto) (45-73) % Lymph % (Auto) (20-40) % Bulloch % (Auto) (2-11) % Eos % (Auto) (0-4) % Baso % (Auto) (0-2) % Lymph # (Auto) (1.2-4.9) X10*3/uL Bulloch # (Auto) (0.1-1.2) X10*3/uL Eos # (Auto) (0.0-0.4) X10*3/uL Baso # (Auto) (0.0-0.2) X10*3/uL Abs Immat Gran (auto) (0.00-0.03) X10*3/uL Absolute Neuts (auto) (2.0-8.3) x10*3/uL Absolute Nucleated RBC (0.0-0.012) X10*3/uL Nucleated RBC % (auto) (0.0-0.2) /100WBC PT (10.0-13.1) SEC INR (0.9-1.1) APTT (26.0-36.4) SEC Sodium (135-145) mmol/L Potassium (3.3-5.1) mmol/L Chloride (96-108) mmol/L Carbon Dioxide (22-29) mmol/L Anion Gap (12-20) BUN (9-16) mg/dL Creatinine (0.5-1.4) mg/dL Estim Creat Clear Calc Estimated GFR Random Glucose (60-115) mg/dL Calcium (8.4-10.2) mg/dL Total Bilirubin (0.0-1.0) mg/dL AST (5-31) U/L ALT (0-31) U/L Alkaline Phosphatase (39-117) U/L Troponin I High Sens < 2.7 (<3.5-17.0) ng/L B-Natriuretic Peptide 67 (<100) pg/mL Total Protein (6.5-8.0) g/dL Albumin (3.5-5.0) g/dL TSH (0.32-4.0) uIU/mL Independent Interpretation I performed an independent interpretation of an: EKG Discharge Plan Discharge Clinical Impression: AF (paroxysmal atrial fibrillation) Patient Disposition: Home, Self-Care Instructions: A-fib (Atrial Fibrillation) (ED) Prescriptions: No Action Eliquis 5 mg tablet 5 mg PO BID Qty: 180 4RF rosuvastatin [Crestor] 40 mg tablet 40 mg PO DAILY Qty: 90 3RF diltiazem HCl [Cardizem CD] 120 mg capsule,extended release 24hr 120 mg PO DAILY Qty: 90 3RF levothyroxine [Synthroid] 100 mcg tablet 100 mcg PO DAILY cholecalciferol (vitamin D3) 100 mcg (4,000 unit) capsule 100 mcg PO DAILY metformin 500 mg tablet extended release 24 hr 500 mg PO DAILY Myrbetriq 25 mg tablet extended release 24 hr 25 mg PO DAILY gabapentin 300 mg capsule PO pantoprazole 40 mg tablet,delayed release (DR/EC) 40 mg PO DAILY Referrals: Sánchez Metzger MD [Primary Care Provider] - Munir Ramirez MD [Physician] - Interventions: ED Discharge Assessment Last Done: 12/16/22 22:20 Discharge Date/Time: 12/16/22 22:20
--- NOTE | 2022-12-16 19:00 | PC.NURSE ---
patient a&ox3, environmental monitoring specialist applied, pt in afib in triage ekg, environmental monitoring specialist in room showed afib, this nurse was obtaining patient history and inserting iv/drawing labs and patient noted to convert to nsr 90s, additional ekg was ordered and tech notified to perform ekg, pt states she felt like she converted, call woodward within reach, will continue to monitor.
[2022-12-16 19:03] LABS: MANUAL DIFF FLAG NO
[2022-12-16 19:05] LABS: Basophils Percent Auto 0.3 % (0-2); Eosinophils Absolute Auto 0.2 X10*3/uL (0.0-0.4); Eosinophils Percent Auto 2.7 % (0-4); Hematocrit 37.9 % (37.0-47.0); Hemoglobin 12.4 g/dl (12.0-16.0); Imm Gran Abs Auto 0.02 X10*3/uL (0.00-0.03); Imm Gran Pct Auto 0.3 % (0.0-0.4); Lymphocytes Absolute Auto 1.5 X10*3/uL (1.2-4.9); Lymphocytes Percent Auto 18.9 % (20-40); Mean Corpuscular HGB Conc 32.7 g/dl (31.0-35.0); Mean Corpuscular Hemoglobin 30.5 pg (27.0-33.0); Mean Corpuscular Volume 93.1 fL (80.0-98.0); Mean Platelet Volume 10.6 fL (9.4-12.3); Monocytes Absolute Auto 0.7 X10*3/uL (0.1-1.2); Monocytes Percent Auto 8.4 % (2-11); Neutrophils Absolute Auto 5.4 x10*3/uL (2.0-8.3); Neutrophils Percent Auto 69.4 % (45-73); Platelet Count 247 X10*3/uL (160-400); Red Blood Count 4.07 X10*6/uL (4.20-5.50); Red Cell Distribution Width 12.1 % (11.0-16.0); White Blood Count 7.8 X10*3/uL (4.8-10.8)
[2022-12-16 19:15] LABS: Prothrombin Time 11.1 SEC (10.0-13.1)
[2022-12-16 19:18] LABS: Partial Thromboplastin Time 30.2 SEC (26.0-36.4)
[2022-12-16 19:26] VITALS: BP 142/78; PULSE 94; RESP 16; TEMP 36.7; O2SAT 98
--- NOTE | 2022-12-16 19:27 | MHC.EDTECH ---
PT REPEATED EKG TAKEN AND WAS READ BY PROVIDER ,VITALS SIGN TAKEN ,PT AT BEDSIDE .
[2022-12-16 19:34] LABS: B Type Natriuretic Peptide 67 pg/mL (<100)
[2022-12-16 19:35] LABS: Alanine Aminotransferase 15 U/L (0-31); Albumin Level 4.2 g/dL (3.5-5.0); Alkaline Phosphatase 108 U/L (39-117); Anion Gap 15 (12-20); Aspartate Amino Transferase 16 U/L (5-31); Bilirubin Total 0.4 mg/dL (0.0-1.0); Blood Urea Nitrogen 16 mg/dL (9-16); Calcium 9.7 mg/dL (8.4-10.2); Carbon Dioxide 28 mmol/L (22-29); Chloride 106 mmol/L (96-108); Creatinine Clr Calc Pharmacy 64.3; Estimated Glomerular Filt Rate 57; Glucose Random 339 mg/dL (60-115); Potassium 4.4 mmol/L (3.3-5.1); Sodium 145 mmol/L (135-145); Total Protein 7.3 g/dL (6.5-8.0)
[2022-12-16 19:38] LABS: Troponin-I High Sensitivity < 2.7 ng/L (<3.5-17.0)
[2022-12-16 19:51] LABS: TSH reflex Free T4 3.82 uIU/mL (0.32-4.0)
[2022-12-16 22:00] VITALS: BP 121/53; PULSE 82; RESP 15; TEMP 36.6; O2SAT 98
--- NOTE | 2022-12-16 22:10 | MHC.EDTECH ---
2200 rounding done ,vitals sign taken ,pt waiting for discharge paper work .
== END 2022-12-16 22:20 | disposition home or self-care (01) ==
PROVIDERS: Physician Assistant; Emergency Provider Emergency Medicine; PCP Internal Medicine
DX: I48.0 Paroxysmal atrial fibrillation (principal); R00.2 Palpitations; R06.02 Shortness of breath; Z79.01 Long term (current) use of anticoagulants; Z79.899 Other long term (current) drug therapy
CPT/HCPCS: 36415; 80053; 83880; 84443; 84484; 85025; 85610; 85730; 93005; 99283; 99285

== ENCOUNTER 2023-02-05 10:08 | Outpatient (REF) | payer MEDICARE, SELFPAY ==
[2023-02-05 10:31] LABS: MANUAL DIFF FLAG NO
[2023-02-05 10:48] LABS: Basophils Percent Auto 0.6 % (0-2); Eosinophils Absolute Auto 0.3 X10*3/uL (0.0-0.4); Eosinophils Percent Auto 6.8 % (0-4); Hematocrit 39.1 % (37.0-47.0); Hemoglobin 12.6 g/dl (12.0-16.0); Imm Gran Abs Auto 0.02 X10*3/uL (0.00-0.03); Imm Gran Pct Auto 0.4 % (0.0-0.4); Lymphocytes Percent Auto 19.8 % (20-40); Mean Corpuscular HGB Conc 32.2 g/dl (31.0-35.0); Mean Corpuscular Hemoglobin 30.4 pg (27.0-33.0); Mean Corpuscular Volume 94.2 fL (80.0-98.0); Mean Platelet Volume 10.7 fL (9.4-12.3); Monocytes Absolute Auto 0.6 X10*3/uL (0.1-1.2); Monocytes Percent Auto 12.8 % (2-11); Neutrophils Absolute Auto 2.9 x10*3/uL (2.0-8.3); Neutrophils Percent Auto 59.6 % (45-73); Platelet Count 254 X10*3/uL (160-400); Red Blood Count 4.15 X10*6/uL (4.20-5.50); Red Cell Distribution Width 12.4 % (11.0-16.0); White Blood Count 4.9 X10*3/uL (4.8-10.8)
[2023-02-05 11:19] LABS: Estimated Average Glucose 157 mg/dL; Hemoglobin A1c % 7.1 %
[2023-02-05 11:37] LABS: Alanine Aminotransferase 18 U/L (0-31); Albumin Level 4.3 g/dL (3.5-5.0); Alkaline Phosphatase 68 U/L (39-117); Anion Gap 9 (12-20); Aspartate Amino Transferase 17 U/L (5-31); Bilirubin Total 0.5 mg/dL (0.0-1.0); Blood Urea Nitrogen 11 mg/dL (9-16); Carbon Dioxide 30 mmol/L (22-29); Chloride 103 mmol/L (96-108); Estimated Glomerular Filt Rate > 60; Glucose Random 228 mg/dL (60-115); Potassium 4.3 mmol/L (3.3-5.1); Sodium 138 mmol/L (135-145); Total Protein 7.8 g/dL (6.5-8.0)
[2023-02-05 11:57] LABS: Free T4 (Free Thyroxine) 1.25 ng/dL (0.71-1.85); Thyroid Stimulating Hormone 0.98 uIU/mL (0.32-4.0)
== END 2023-02-05 10:09 | disposition home or self-care (01) ==
LOC: HO.10HDL 10:08
PROVIDERS: Visit Provider Internal Medicine
DX: E11.22 Type 2 diabetes mellitus with diabetic chronic kidney disease (principal); I12.9 Hypertensive chronic kidney disease with stage 1 through stage 4 chronic kidney disease, or unspecified chronic kidney disease; N18.9 Chronic kidney disease, unspecified; I48.91 Unspecified atrial fibrillation; E03.9 Hypothyroidism, unspecified
CPT/HCPCS: 36415; 80053; 83036; 84439; 84443; 85025

== ENCOUNTER 2023-03-05 12:58 | Outpatient (AMB) | payer MEDICARE, SELFPAY ==
[2023-03-05 13:00] VITALS: BP 140/76; PULSE 84; BMI 36.2
--- NOTE | 2023-03-05 13:00 | MHC.OFFVIS ---
Intake Vital Signs 03/05/23 13:00 Height 5 ft 5 in Weight 217 lb 6.012 oz BMI 36.2 BP 140/76 H Blood Pressure Location Lt brachial Position Sitting Pulse 84 Intake Visit Reasons: 1 year follow up Intake Note: 1 year follow up Sanitation Officer Required: No Accompanied by: Self / Same As Patient Allergies Sulfa (Sulfonamide Antibiotics) [SULFA (SULFONAMIDE ANTIBIOTICS)] Allergy (Intermediate, Verified 03/05/23 13:03) RASH MONSULFITES Allergy (Severe, Uncoded 03/05/23 13:03) ANAPHYLAXIS Medication List - Last Reconciled 03/05/23 by Munir Ramirez MD apixaban (Eliquis) 5 mg PO BID cholecalciferol (vitamin D3) 100 mcg PO DAILY diltiazem HCl (Cardizem CD) 120 mg PO DAILY levothyroxine (Synthroid) 100 mcg PO DAILY metformin ER 500 mg PO DAILY mirabegron ER (Myrbetriq) 50 mg PO DAILY pantoprazole 40 mg PO DAILY rosuvastatin (Crestor) 40 mg PO DAILY trazodone 50 mg PO BEDTIME HPI HPI Comments History of Present Illness Details Cecilia returns for follow-up regarding atrial fibrillation. She is maintained on combination of diltiazem and Eliquis. She states that she went for lithotripsy procedure. After that, she apparently had atrial fibrillation with rapid rate. After few hours, it resolved. One further episode after she went to [place]. That time apparently she had a lot of stress as well. Since that time, she is doing good. No new complaints. No anginal-type chest pains or shortness of breath or in fact anything cardiac sounding at all. [facility] Medical History Bilateral carotid artery stenosis Cholesterol retinal embolus of right eye Nocturnal hypoxemia Obesity (BMI 30-39.9) Paroxysmal atrial fibrillation Taste disorder Surgical History History of section History of knee surgery Family History Father CVD (cardiovascular disease) Mother No problems noted. Social History Alcohol intake: never Patient Tobacco Use Status: Former Tobacco user Review of Systems Const Denies weakness ENT Denies dizziness Card Denies chest pain, Denies chest pain with activity, Denies syncope, Denies rapid heart rate, Denies pedal edema, Denies edema, Denies leg edema, Denies lightheadedness, Denies palpitations, Denies dyspnea, Denies dyspnea on exertion and Denies orthopnea Resp Denies cough, Denies dyspnea and Denies dyspnea on exertion GI Denies hematochezia and Denies change in stool character Musc Denies abnormal gait, Denies muscle cramps, Denies muscle weakness, Denies numbness, Denies radiating pain into limb and Denies tingling Neuro Denies abnormal gait, Denies dizziness, Denies syncope, Denies numbness, Denies tingling and Denies weakness Endo Denies palpitations Physical Exam Vital Signs: Last Vital Signs Pulse 84 03/05/23 13:00 BP 140/76 H 03/05/23 13:00 BMI result Body Mass Index 36.2 Const General: comfortable and no acute distress Orientation/consciousness: patient oriented x3 HEENT Other: Unremarkable Head: Yes normal to inspection Neck Neck: Yes normal visual inspection Chest Chest palpation & inspection: normal inspection of the chest Resp Auscultation: clear to auscultation bilaterally Cardio Palpation: normal PMI Heart sounds: S1 normal heart sound present, S2 normal heart sound present, no gallops, no murmurs and no rubs GI Palpation (GI): Soft to palpation Back/Spine/Pelvis Other: unremarkable Skin General skin exam: no rashes or lesions noted Neuro General: patient oriented x3 Extrem General: Yes normal to inspection Psych Mental Status: mental status grossly normal Assessment & Plan Assessment & Plan (1) Paroxysmal atrial fibrillation: Code(s): I48.0 - Paroxysmal atrial fibrillation Plan: She has had 2 episodes of atrial fibrillation 1 after lithotripsy and 1 during travel to [place]. Hence we will increase the diltiazem dose to 180 mg daily. If she still gets recurrent episodes, probably add some beta-blockers or consider flecainide. Ablation might also be an option. Continue anticoagulation. Will check a Holter before next visit. If any recurrent episodes she will actually contact us and we discussed about this today. (2) Cholesterol retinal embolus of right eye: Code(s): H34.211 - Partial retinal artery occlusion, right eye Plan: Possibly related to carotid disease. She follows up with [facility] vascular surgery. (3) THUY (obstructive sleep apnea): Comment: Patient is very compliant, and happy with the use of CPAP. Uses nasal pillows , with auto PAP mode 6-20 cm . THUY is well treated at this time. She will continue to use the CPAP, call if there is any problem. Code(s): G47.33 - Obstructive sleep apnea (adult) (pediatric) Plan: Continue CPAP. (4) Bilateral carotid artery stenosis: Code(s): I65.23 - Occlusion and stenosis of bilateral carotid arteries Plan: Continue statins. LDL cholesterol so well controlled. She does not have any chest pain and no clinical suggestion of obstructive CAD. In the past, has had an exercise stress echocardiogram but unremarkable. If any concerning symptoms, she will report them to us and in that case can consider testing. Medications: New diltiazem HCl (Cardizem CD) 180 mg PO DAILY 90 caps 3RF Discontinued diltiazem HCl (Cardizem CD) Discontinued Reason: Doctor's Order 120 mg PO DAILY 90 caps 3RF Coding Level of Care Code Est Pt Level 4 (65720) Diagnoses Paroxysmal atrial fibrillation I48.0 Cholesterol retinal embolus of right eye H34.211 THUY (obstructive sleep apnea) G47.33 Bilateral carotid artery stenosis I65.23
== END 2023-03-05 13:23 | disposition home or self-care (01) ==
PROVIDERS: PCP Internal Medicine; Referring Provider Internal Medicine; Visit Provider Internal Medicine
DX: I48.0 Paroxysmal atrial fibrillation (principal); H34.211 Partial retinal artery occlusion, right eye; G47.33 Obstructive sleep apnea (adult) (pediatric); I65.23 Occlusion and stenosis of bilateral carotid arteries
CPT/HCPCS: 99214

== ENCOUNTER → 2023-03-05 12:58 | Outpatient (BNVA) | payer MEDICARE, SELFPAY | PROVIDERS: PCP Internal Medicine; Referring Provider Internal Medicine; Visit Provider Internal Medicine | DX: I48.0 Paroxysmal atrial fibrillation (principal); I65.23 Occlusion and stenosis of bilateral carotid arteries; G47.33 Obstructive sleep apnea (adult) (pediatric); H34.211 Partial retinal artery occlusion, right eye | CPT/HCPCS: 99212 ==

== ENCOUNTER 2023-03-29 07:11 | Emergency (ER) | payer MEDICARE, SELFPAY ==
--- NOTE | 2023-03-29 07:14 | ECG_ITS ---
Test Reason : arrythmia Blood Pressure : / mmHG Vent. Rate : 100 BPM Atrial Rate : 100 BPM P-R Int : 126 ms QRS Dur : 082 ms QT Int : 340 ms P-R-T Axes : 052 034 046 degrees QTc Int : 438 ms Normal sinus rhythm Normal ECG When compared with ECG of 16-DEC-2022 19:09, No significant change was found Referred By: Generic ED Physician Electronically Signed By:MIAN KIM
[2023-03-29 07:26] VITALS: BP 176/67; PULSE 101; RESP 18; TEMP 37.2; O2SAT 96; BMI 36.7
--- NOTE | 2023-03-29 07:28 | ED.ARRPALP ---
HPI - Arrhythmia/Palpitations General Chief Complaint: Arrhythmia/Palpitations Stated Complaint: Afib Time Seen by Provider: 03/29/23 07:28 Source: patient Mode of arrival: ambulatory Limitations: no limitations History of Present Illness HPI narrative: 72 yo female with PMHx of paroxysmal atrial fibrilation on Eliquis and diltiazem presents to the ED today complaining of palpitations x4 hours. States that she felt herself go into atrial fibrillation at 0400 this morning. Reports HR at home 140 bpm. 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 Upon checking into the ED, patient states she felt her HR convert to NSR in lobby. Currently has no physical complaints. Denies dizziness, headache, vision changes, CP, shortness of breath, nausea/vomiting/diarrhea, weakness/numbness/ tingling in extremities. Related Data Home Medications Medication Instructions Recorded Confirmed cholecalciferol (vitamin D3) 100 100 mcg PO DAILY 08/22/20 03/05/23 mcg (4,000 unit) capsule levothyroxine 100 mcg tablet 100 mcg PO DAILY 08/22/20 03/05/23 (Synthroid) metformin 500 mg tablet,extended 500 mg PO DAILY 12/08/20 03/05/23 release 24 hr pantoprazole 40 mg tablet,delayed 40 mg PO DAILY 08/03/21 03/05/23 release mirabegron 50 mg tablet,extended 50 mg PO DAILY 03/05/23 03/05/23 release 24 hr (Myrbetriq) trazodone 50 mg tablet 50 mg PO BEDTIME 03/05/23 03/05/23 Previous Rx's Medication Instructions Recorded apixaban 5 mg tablet (Eliquis) 5 mg PO BID #180 tabs 03/20/22 rosuvastatin 40 mg tablet (Crestor) 40 mg PO DAILY #90 tabs 03/21/22 diltiazem HCl 180 mg 180 mg PO DAILY #90 caps 03/05/23 capsule,extended release 24 hr (Cardizem CD) Allergies Allergy/AdvReac Type Severity Reaction Status Date / Time Sulfa (Sulfonamide Allergy Intermediate RASH Verified 03/29/23 07:34 Antibiotics) [SULFA (SULFONAMIDE ANTIBIOTICS)] MONSULFITES Allergy Severe ANAPHYLAXIS Uncoded 03/29/23 07:34 Review of Systems Review of Systems: Constitutional: No fever, No chills, No fatigue, No malaise ENT/Mouth: No ear pain, No hearing loss, No nasal congestion Eyes: No eye pain, No swelling, No redness, No vision changes, No foreign body, No discharge Cardio: No chest pain, No palpitations, No dyspnea on exertion, No orthopnea, No edema Respiratory: No SOB, No cough, No sputum, No wheezing, No dyspnea, No hemoptysis GI: No nausea, No vomiting, No hematemesis, No abdominal pain, No diarrhea, No constipation, No hematochezia, No melena : No irregular bleeding, No dysuria, No frequency, No urgency MSK: No back pain, No neck pain, No joint pain, No myalgias Skin: No skin lesions, No rashes Neuro: No weakness, No numbness, No paresthesias, No LOC, No dizziness, No headache All other systems reviewed and are negative. [facility] Past Medical History Attestation statement: The following information was validated with the patient. Source: old records reviewed and nursing notes reviewed Medical History Obesity (BMI 30-39.9) Taste disorder Bilateral carotid artery stenosis Nocturnal hypoxemia Cholesterol retinal embolus of right eye Paroxysmal atrial fibrillation Surgical History History of section History of knee surgery Family History Family History Father CVD (cardiovascular disease) Mother No problems noted. Social History Social History Alcohol intake: never Patient Tobacco Use Status: Former Tobacco user Smoked in Last 30 Days: No Use of substances other than those prescribed or required for medical reasons: No Advance Directives: Yes Advance Directives Information Provided: Yes Advance Directives on File: No Physical Exam Vital Signs: Vital Signs: Last Vital Signs Temp 99 F 03/29/23 07:26 Pulse 90 03/29/23 09:13 Resp 16 03/29/23 09:13 BP 132/51 L 03/29/23 09:13 Pulse Ox 95 03/29/23 09:13 O2 Del Method Room Air 03/29/23 09:13 BMI result Body Mass Index 36.7 Vital signs stable General: Nontoxic appearing. NAD Skin: Warm and dry. No rashes or lesions. Head: Normocephalic, atraumatic. EENT:PERRLA. EOM intact. Nasal septum is midline. Neck: Supple without LAD. Normal ROM. Trachea midline. Cardiac: Chest wall symmetric. RRR. S1 and S1 appreciated. No MRG. No JVD. Lungs: CTA bilaterally. No rales, rhonchi, or wheezes. Normal respiratory effort without accessory muscle use. Spine: No midline spinous tenderness. No deformity or step off. Ext: Upper and lower extremities atraumatic. Full ROM throughout. Capillary refill <2 seconds in all extremities. Pulses 2+ equal b/l. No edema, cyanosis, or clubbing. Neuro: Alert and oriented x3. Normal speech. CN 2-12 grossly intact. NV intact distally. Reflexes 2+ bilaterally. Normal finger to nose, heel to juarez. Ambulating with steady gait. Psych: Appropriate mood and affect. Responds appropriately to questions. Course Course Course Narrative: 0740-- EKG showing normal sinus rhythm with regular rate, no ischemic changes or fibrillations. States that she currently follows with her slitting and shipping supervisor, Dr. Ramirez, and has appropriate follow up scheduled. Is scheduled for holter monitor evaluation soon. 0800 -- discussed case with my attending physician, Dr. Deshpadne, and we both agree that the patient does not require further lab workup or imaging in ED. Patient successfully converted to NSR with home medications prior to being evaluated today. She is asymptomatic with no complaints and hemodynamically stable. I feel comfortable discharging her home with cardiology follow up. Used shared decision making with patient to determine disposition. Patient agreeable with plan. Will continue home meds as prescribed. Educated patient on return precautions. All questions answered. Stable for discharge. Medical Decision Making Medical Decision Making [facility] Narrative: 72 yo female with PMHx of paroxysmal atrial fibrilation on Eliquis and diltiazem presents to the ED today complaining of palpitations x4 hours. Vital signs stable. Patient nontoxic appearing and in NAD. Physical exam unremarkable. RRR. Lungs CTA/BL. Exam non focal. Clinical concern for atrial fibrillation with conversion to NSR. No concern for CVA/ TIA, ASC, dissection, PE > presentation not consistent with this. Plan: EKG Differential Diagnosis Differential Diagnoses: The differential diagnosis associated with the presentation includes Clinical concern for atrial fibrillation with conversion to NSR. No concern for CVA/ TIA, ASC, dissection, PE > presentation not consistent with this. Admission/Observation Not indicated. Lab Data Not indicated. Independent Interpretation I performed an independent interpretation of an: EKG Interpretation: EKG showing normal sinus rhythm at a rate of 100 bpm, no fibrillatory waves, QT 340, no acute ischemic changes. Tests considered The following testing was considered but not selected: I considered obtaining basic labs and cardiac enzymes however patient's rhythm converted with medical management prior to evaluation, long history of atrial fibrillation, work up not indicated. Chronic Conditions Patient?s care impacted by: Diabetes and Other (atrial fibrillation) Critical Care Time Critical Care Time Critical Care Time: No Discharge Plan Discharge Clinical Impression: Paroxysmal atrial fibrillation Patient Disposition: Home, Self-Care Instructions: Esha-fib (Atrial Fibrillation) (ED) Additional Instructions: You were seen in the emergency department today for evaluation of atrial fibrillation. You successfully converted your rhythm back to normal sinus after doubling your cardizem dose, confirmed on EKG. Continue taking your medications as prescribed. Do not miss any doses. Please follow-up with your slitting and shipping supervisor and your PCP this week. Return to the emergency department if your symptoms persist or worsen. Prescriptions: No Action Eliquis 5 mg tablet 5 mg PO BID Qty: 180 4RF rosuvastatin [Crestor] 40 mg tablet 40 mg PO DAILY Qty: 90 3RF levothyroxine [Synthroid] 100 mcg tablet 100 mcg PO DAILY cholecalciferol (vitamin D3) 100 mcg (4,000 unit) capsule 100 mcg PO DAILY metformin 500 mg tablet extended release 24 hr 500 mg PO DAILY pantoprazole 40 mg tablet,delayed release (DR/EC) 40 mg PO DAILY Myrbetriq 50 mg tablet extended release 24 hr 50 mg PO DAILY trazodone 50 mg tablet 50 mg PO BEDTIME diltiazem HCl [Cardizem CD] 180 mg capsule,extended release 24hr 180 mg PO DAILY Qty: 90 3RF Referrals: Sánchez Metzger MD [Primary Care Provider] - Munir Ramirez MD [Physician] - Interventions: ED Discharge Assessment Last Done: 03/29/23 09:14 Discharge Date/Time: 03/29/23 09:00
[2023-03-29 07:31] VITALS: PULSE 102
[2023-03-29 09:13] VITALS: BP 132/51; PULSE 90; RESP 16; O2SAT 95
== END 2023-03-29 09:00 | disposition home or self-care (01) ==
PROVIDERS: Emergency Provider Emergency Medicine Emergency Medical Services; PCP Internal Medicine
DX: I48.0 Paroxysmal atrial fibrillation (principal); R00.2 Palpitations; Z79.01 Long term (current) use of anticoagulants; Z79.84 Long term (current) use of oral hypoglycemic drugs; Z87.891 Personal history of nicotine dependence
CPT/HCPCS: 93005; 99283; 99285

== ENCOUNTER 2023-04-09 13:06 | Outpatient (AMB) | payer MEDICARE, SELFPAY ==
[2023-04-09 13:20] VITALS: BP 136/76; PULSE 93; O2SAT 96; BMI 35.4
--- NOTE | 2023-04-09 13:20 | A.OFFVIS_ITS ---
Intake Vital Signs 04/09/23 13:20 Height 5 ft 5 in Weight 212 lb 15.465 oz BMI 35.4 BP 136/76 Blood Pressure Location Lt brachial Position Sitting Pulse 93 Pulse Source Pulse Oximeter Pulse Oximetry (%) 96 Oxygen Delivery Method Room Air Intake Visit Reasons: ED follow up/ AFib Intake Note: Pt presents to the office today for an ED follow up/AFib. Pt states she felt something different than AFib on 04/05 which lasted until 04/07. Pt states she felt irregular heartbeats during that time but since then has been okay. Pt denies SOB or chest pain. Allergies Sulfa (Sulfonamide Antibiotics) [SULFA (SULFONAMIDE ANTIBIOTICS)] Allergy (Intermediate, Verified 04/09/23 13:23) RASH MONSULFITES Allergy (Severe, Uncoded 04/09/23 13:23) ANAPHYLAXIS Medication List - Last Reconciled 04/09/23 by JEAN PIERRE Proctor apixaban (Eliquis) 5 mg PO BID cholecalciferol (vitamin D3) 100 mcg PO DAILY diltiazem HCl (Cardizem CD) 180 mg PO DAILY flecainide 50 mg PO Q12H levothyroxine (Synthroid) 100 mcg PO DAILY metformin ER 500 mg PO DAILY mirabegron ER (Myrbetriq) 50 mg PO DAILY pantoprazole 40 mg PO DAILY rosuvastatin (Crestor) 40 mg PO DAILY trazodone 50 mg PO BEDTIME HPI ED follow up/ AFib HPI Details Cecilia is a 73-year-old female with past medical history of obesity, carotid stenosis, obstructive sleep apnea with CPAP use, paroxysmal atrial fibrillation who presents for follow-up after recent ER visit for PAF. Today she reports that she has not had recurrent AFib since her ER visit. On that day she had felt the AFib for a few hours then took an additional diltiazem dose. When her palpitations did not resolve she went to the emergency room however she felt her heart go back to normal rhythm when sitting in the waiting room. An EKG and labs were done without any significant abnormalities. A few days ago she felt some heart palpitations that lasted 2 days and felt different from AFib, no associated symptoms. She denies having chest discomfort at rest or with activity. No shortness of breath, dizziness, presyncope, syncope, PND, orthopnea or edema. She tolerates normal ADLs without difficulty. No bleeding issues reported. [facility] Medical History Obesity (BMI 30-39.9) Taste disorder Bilateral carotid artery stenosis Nocturnal hypoxemia Cholesterol retinal embolus of right eye Paroxysmal atrial fibrillation Surgical History History of section History of knee surgery Family History Father CVD (cardiovascular disease) Mother No problems noted. Social History Alcohol intake: never Patient Tobacco Use Status: Former Tobacco user Review of Systems Const All systems reviewed & are unremarkable except as noted in HPI and below Card Details: heart palpitations Denies chest pain, Denies chest pain at rest, Denies chest pain with activity and Denies dyspnea on exertion Resp Denies dyspnea on exertion Physical Exam Vital Signs: Last Vital Signs Pulse 93 04/09/23 13:20 BP 136/76 04/09/23 13:20 Pulse Ox 96 04/09/23 13:20 Oxygen Delivery Method Room Air 04/09/23 13:20 BMI result Body Mass Index 35.4 Const General: cooperative, healthy appearing, comfortable and no acute distress Orientation/consciousness: patient oriented x3 Neck Neck: Yes normal visual inspection Resp Effort & Inspection: normal respiratory effort Auscultation: clear to auscultation bilaterally, no crackles, no rales, no rhonchi and no wheezes Cardio Jugular venous distension: no JVD Rate: regular rate Rhythm: regular rhythm Heart sounds: S1 normal heart sound present, S2 normal heart sound present, no murmurs and no rubs Neuro General: patient oriented x3 Extrem General: Yes normal to inspection and No no pedal edema Psych Appearance: grossly normal Mental Status: mental status grossly normal Speech and movement: Normal speech and movement present Assessment & Plan Assessment & Plan (1) Paroxysmal atrial fibrillation: Code(s): I48.0 - Paroxysmal atrial fibrillation Plan: History of paroxysmal atrial fibrillation. Last episode occurring 03/29/2023 lasting several hours. She did go to the emergency room for evaluation however converted to sinus rhythm while in the waiting room. Her EKG then showed sinus rhythm, heart rate 100. Lab work was done showing no acute abnormalities. She was continued on her usual diltiazem CD 180 mg daily and Eliquis 5 mg b.i.d.. Today she reports having some different heart palpitations occurring a few days ago lasting approximately 2 days. She felt her heartbeat was irregular however not rapid and no associated symptoms. Pulse is regular at this time. Stress echocardiogram done 09/16/2019 showed no findings of ischemia. She has no reports of anginal sounding symptoms. Discussed use of antiarrhythmic with her and she is agreeable. Will start on flecainide 50 mg b.i.d.. Continue diltiazem. Office EKG in 1 week. Discussed referral to electrophysiology for AFib ablation and she is not interested at this time. She has says she will be satisfied if her episodes can be controlled with medical management. Cardiology office visit in 3 months, sooner if needed. She will be leaving for [facility] for a few months starting in July. (2) Palpitations: Code(s): R00.2 - Palpitations Plan: As above (3) Obesity (BMI 30-39.9): Code(s): E66.9 - Obesity, unspecified Plan: She continues to work on weight loss (4) THUY (obstructive sleep apnea): Comment: . Code(s): G47.33 - Obstructive sleep apnea (adult) (pediatric) Plan: Compliant with CPAP Medications: New flecainide 50 mg PO Q12H 60 tabs 2RF Coding Level of Care Code Est Pt Level 4 (90533) Diagnoses Paroxysmal atrial fibrillation I48.0 Palpitations R00.2 Obesity (BMI 30-39.9) E66.9 THUY (obstructive sleep apnea) G47.33 Time Spent (min) 28
== END 2023-04-09 13:49 | disposition home or self-care (01) ==
PROVIDERS: PCP Internal Medicine; Visit Provider Nurse Practitioner Family
DX: I48.0 Paroxysmal atrial fibrillation (principal); R00.2 Palpitations; E66.9 Obesity, unspecified; G47.33 Obstructive sleep apnea (adult) (pediatric)
CPT/HCPCS: 99214

== ENCOUNTER → 2023-04-09 13:06 | Outpatient (BNVA) | payer MEDICARE, SELFPAY | PROVIDERS: PCP Internal Medicine; Visit Provider Nurse Practitioner Family | DX: I48.0 Paroxysmal atrial fibrillation (principal); R00.2 Palpitations; E66.9 Obesity, unspecified; G47.33 Obstructive sleep apnea (adult) (pediatric); Z68.35 Body mass index [BMI] 35.0-35.9, adult | CPT/HCPCS: 99212 ==

== ENCOUNTER 2023-04-16 14:51 | Outpatient (AMB) | payer MEDICARE, SELFPAY ==
--- NOTE | 2023-04-16 15:48 | AM.OFFVISNUR ---
Intake Intake Visit Reasons: ekg Intake Note: Follow up after starting flecainide 50mg bid. H/O afib. Feels good. No complaints. 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 Ramirez and Concepción Meehan NP Nursing Note EKG completed, EKG auto-reading sinus rhythm at 85 bpm. EKG on Drawn Naty's desk for review and signature. Office Procedures EKG [id number], Complete Coding Level of Care Code Est Pt Level 1 (36069) CPT Codes EKG - CPT: 71095-[id number], Complete ([id number]) Time Spent (min) 15 Comment EKG, Medication Reconciliation, Documentation, Education
== END 2023-04-16 15:38 | disposition home or self-care (01) ==
PROVIDERS: PCP Internal Medicine; Visit Provider Nurse Practitioner Family
DX: R00.2 Palpitations (principal)
CPT/HCPCS: 93010

== ENCOUNTER → 2023-04-16 14:51 | Outpatient (BNVA) | payer MEDICARE, SELFPAY | PROVIDERS: PCP Internal Medicine; Visit Provider Nurse Practitioner Family | DX: Z79.899 Other long term (current) drug therapy (principal) | CPT/HCPCS: 93005 ==

== ENCOUNTER 2023-05-02 12:31 | Outpatient (REF) | payer MEDICARE, SELFPAY ==
[2023-05-02 13:11] LABS: MANUAL DIFF FLAG NO
[2023-05-02 13:40] LABS: Basophils Percent Auto 0.7 % (0-2); Eosinophils Absolute Auto 0.2 X10*3/uL (0.0-0.4); Eosinophils Percent Auto 3.3 % (0-4); Hematocrit 38.5 % (37.0-47.0); Hemoglobin 12.5 g/dl (12.0-16.0); Imm Gran Abs Auto 0.01 X10*3/uL (0.00-0.03); Imm Gran Pct Auto 0.2 % (0.0-0.4); Lymphocytes Absolute Auto 1.4 X10*3/uL (1.2-4.9); Lymphocytes Percent Auto 24.4 % (20-40); Mean Corpuscular HGB Conc 32.5 g/dl (31.0-35.0); Mean Corpuscular Hemoglobin 30.3 pg (27.0-33.0); Mean Corpuscular Volume 93.2 fL (80.0-98.0); Mean Platelet Volume 10.7 fL (9.4-12.3); Monocytes Absolute Auto 0.4 X10*3/uL (0.1-1.2); Monocytes Percent Auto 7.4 % (2-11); Neutrophils Absolute Auto 3.7 x10*3/uL (2.0-8.3); Platelet Count 265 X10*3/uL (160-400); Red Blood Count 4.13 X10*6/uL (4.20-5.50); Red Cell Distribution Width 12.4 % (11.0-16.0); White Blood Count 5.8 X10*3/uL (4.8-10.8)
[2023-05-02 14:14] LABS: Alanine Aminotransferase 17 U/L (0-31); Albumin Level 4.3 g/dL (3.5-5.0); Alkaline Phosphatase 74 U/L (39-117); Anion Gap 13 (12-20); Aspartate Amino Transferase 18 U/L (5-31); Bilirubin Total 0.4 mg/dL (0.0-1.0); Blood Urea Nitrogen 11 mg/dL (9-16); Calcium 9.9 mg/dL (8.4-10.2); Carbon Dioxide 26 mmol/L (22-29); Chloride 103 mmol/L (96-108); Estimated Glomerular Filt Rate > 60; Free T4 (Free Thyroxine) 1.25 ng/dL (0.71-1.85); Glucose Random 129 mg/dL (60-115); Potassium 4.4 mmol/L (3.3-5.1); Sodium 138 mmol/L (135-145); Thyroid Stimulating Hormone 1.25 uIU/mL (0.32-4.0); Total Protein 7.9 g/dL (6.5-8.0)
[2023-05-02 14:34] LABS: Estimated Average Glucose 163 mg/dL; Hemoglobin A1c % 7.3 % (<6.0)
== END 2023-05-02 12:32 | disposition home or self-care (01) ==
LOC: HO.10HDL 12:31
PROVIDERS: Visit Provider Internal Medicine
DX: E11.9 Type 2 diabetes mellitus without complications (principal); I10 Essential (primary) hypertension; I48.0 Paroxysmal atrial fibrillation; E03.9 Hypothyroidism, unspecified; E55.9 Vitamin D deficiency, unspecified
CPT/HCPCS: 36415; 80053; 82306; 83036; 84439; 84443; 85025

== ENCOUNTER 2023-06-03 11:01 | Outpatient (REF) | payer MEDICARE, SELFPAY ==
--- NOTE | ~2023-06-03 | MM_ITS ---
EXAMINATION: MM SCREENING DIGITAL BREAST TOMOSYNTHESIS, BILATERAL CLINICAL INFORMATION: Screening. Asymptomatic. COMPARISON: Mammography: This study is compared with prior exams dating back to 2017. TECHNIQUE: Digital breast tomosynthesis is performed in both the craniocaudal and mediolateral oblique views along with computer-aided detection (CAD). Synthesized 2D images are generated from the tomosynthesis. FINDINGS: The breasts are almost entirely fatty (ACR BI-RADS breast composition Category a). There are no significant masses, abnormal calcifications, or other abnormalities. MM/MM tomosynthesis screening BI IMPRESSION: No mammographic evidence of malignancy. ASSESSMENT: BI-RADS BI-RADS 1 - Negative RECOMMENDATION: Routine annual mammography screening. 1 year F/U This examination should not preclude the clinical evaluation of a suspicious palpable abnormality. This patient's information was entered into a reminder system with a target due date for their next mammogram.
== END 2023-06-03 11:02 | disposition home or self-care (01) ==
LOC: HO.MAMMO 11:01
PROVIDERS: PCP Internal Medicine; Visit Provider Internal Medicine
DX: Z12.31 Encounter for screening mammogram for malignant neoplasm of breast (principal)
CPT/HCPCS: 77063; 77067

== ENCOUNTER → 2023-06-03 11:15 | Outpatient (BNV) | payer MEDICARE, SELFPAY | PROVIDERS: PCP Internal Medicine; Visit Provider Radiology Diagnostic Radiology | DX: Z12.31 Encounter for screening mammogram for malignant neoplasm of breast (principal) | CPT/HCPCS: 77063; 77067 ==

== ENCOUNTER 2023-06-18 10:43 | Outpatient (AMB) | payer MEDICARE, SELFPAY ==
--- NOTE | 2023-06-18 11:12 | AM.OFFVISNUR ---
Intake Intake Visit Reasons: EKG Intake Note: Urgent EKG for suspected Afib at home. Medical Attendant Required: No Accompanied by: Self / Same As Patient Allergies Sulfa (Sulfonamide Antibiotics) [SULFA (SULFONAMIDE ANTIBIOTICS)] Allergy (Intermediate, Verified 04/09/23 13:23) RASH MONSULFITES Allergy (Severe, Uncoded 04/09/23 13:23) ANAPHYLAXIS Followed by:: Dr. Ramirez Nursing Note EKG completed by Allen Duarte Asst. Pt's EKG shows NSR. This RN checked her pulse and notes ~ 8 small pauses over 2 minutes. Pause are ~ 1second long. EKG and pulse findings discussed and reviewed w Dr. Ramirez. Orders for 7 day holter entered. Pt to get holter applied today. She verbalizes understanding and agrees to plan. Office Procedures EKG [id number], Complete Coding Level of Care Code Est Pt Level 1 (31358) CPT Codes EKG - CPT: 20558-[id number], Complete ([id number]) Time Spent (min) 25 Comment EKG, Medication Reconciliation, Documentation, Education, Scheduling of holter
== END 2023-06-18 11:07 | disposition home or self-care (01) ==
PROVIDERS: PCP Internal Medicine; Visit Provider Internal Medicine
DX: I49.1 Atrial premature depolarization (principal)
CPT/HCPCS: 93010; 93244

== ENCOUNTER → 2023-06-18 10:43 | Outpatient (BNVA) | payer MEDICARE, SELFPAY | LOC: CF 11:54 | PROVIDERS: PCP Internal Medicine; Visit Provider Internal Medicine | DX: I48.0 Paroxysmal atrial fibrillation (principal); R00.2 Palpitations | CPT/HCPCS: 93005; 93242 ==

== ENCOUNTER → 2023-06-18 11:55 | Outpatient (REF) | payer MEDICARE, SELFPAY ==
--- NOTE | 2023-06-18 12:11 | HM_ITS ---
Conclusion: 1. Patient was monitored for total period of 7 days 2. Baseline was normal sinus with average heart of 76 beats per minute 3. No significant atrial fibrillation or pauses noted 4. Frequent PACs noted with total burden of 3.3% 5. Patient reported 8 events with symptoms of pounding in the chest correlating with isolated PACs MTDD
== END ==
LOC: HO.CARD 11:55
PROVIDERS: Visit Provider Internal Medicine
DX: R00.2 Palpitations (principal); I48.0 Paroxysmal atrial fibrillation
CPT/HCPCS: 93242

== ENCOUNTER 2023-07-02 09:54 | Outpatient (REF) | payer MEDICARE, SELFPAY | END 2023-07-02 09:55 | disposition home or self-care (01) | LOC: HO.XRAY 09:54 | PROVIDERS: PCP Internal Medicine; Visit Provider Internal Medicine | DX: R05.9 Cough, unspecified (principal); R09.89 Other specified symptoms and signs involving the circulatory and respiratory systems | CPT/HCPCS: 71046 ==

== ENCOUNTER 2023-07-10 13:46 | Outpatient (AMB) | payer MEDICARE, SELFPAY ==
--- NOTE | 2023-07-10 13:58 | MHC.OFFVIS ---
Intake Vital Signs 07/10/23 13:59 Height 5 ft 5 in Weight 211 lb 10.3 oz BMI 35.2 BP 136/62 Blood Pressure Location Lt brachial Position Sitting Pulse 72 Intake Visit Reasons: 3 mth f/up ? ekg needed Intake Note: 3 month follow up w/ EKG Customer Success Advocate Required: No Accompanied by: Self / Same As Patient Allergies Sulfa (Sulfonamide Antibiotics) [SULFA (SULFONAMIDE ANTIBIOTICS)] Allergy (Intermediate, Verified 07/10/23 13:59) RASH MONSULFITES Allergy (Severe, Uncoded 07/10/23 13:59) ANAPHYLAXIS Medication List - Last Reconciled 07/10/23 by Munir Ramirez MD apixaban (Eliquis) 5 mg PO BID cholecalciferol (vitamin D3) 100 mcg PO DAILY diltiazem HCl (Cardizem CD) 180 mg PO DAILY flecainide 50 mg PO Q12H levothyroxine (Synthroid) 100 mcg PO DAILY metformin ER 500 mg PO DAILY mirabegron ER (Myrbetriq) 50 mg PO DAILY pantoprazole 40 mg PO DAILY rosuvastatin (Crestor) 40 mg PO DAILY trazodone 50 mg PO BEDTIME HPI HPI Comments History of Present Illness Details Cecilia returns for follow-up regarding atrial fibrillation. She was maintained on a combination of diltiazem and Eliquis but she had recurrence recently. Then flecainide was added. After that, she still had some palpitations but not as much. Holter however shows PACs only. No other complaints like angina or shortness of breath or in fact anything cardiac sounding. [facility] Medical History Obesity (BMI 30-39.9) Taste disorder Bilateral carotid artery stenosis Nocturnal hypoxemia Cholesterol retinal embolus of right eye Paroxysmal atrial fibrillation Surgical History History of section History of knee surgery Family History Father CVD (cardiovascular disease) Mother No problems noted. Social History Alcohol intake: never Patient Tobacco Use Status: Former Tobacco user Review of Systems Const Denies weakness ENT Denies dizziness Card Denies chest pain, Denies chest pain with activity, Denies syncope, Denies rapid heart rate, Denies pedal edema, Denies edema, Denies leg edema, Denies lightheadedness, Denies dyspnea, Denies dyspnea on exertion and Denies orthopnea Resp Denies cough, Denies dyspnea and Denies dyspnea on exertion GI Denies hematochezia and Denies change in stool character Musc Denies abnormal gait, Denies muscle cramps, Denies muscle weakness, Denies numbness, Denies radiating pain into limb and Denies tingling Neuro Denies abnormal gait, Denies dizziness, Denies syncope, Denies numbness, Denies tingling and Denies weakness Physical Exam Vital Signs: Last Vital Signs Pulse 72 07/10/23 13:59 BP 136/62 07/10/23 13:59 BMI result Body Mass Index 35.2 Const General: comfortable and no acute distress Orientation/consciousness: patient oriented x3 HEENT Other: Unremarkable Head: Yes normal to inspection Neck Neck: Yes normal visual inspection Chest Chest palpation & inspection: normal inspection of the chest Resp Auscultation: clear to auscultation bilaterally Cardio Palpation: normal PMI Heart sounds: S1 normal heart sound present, S2 normal heart sound present, no gallops, no murmurs and no rubs GI Palpation (GI): Soft to palpation Back/Spine/Pelvis Other: unremarkable Skin General skin exam: no rashes or lesions noted Neuro General: patient oriented x3 Extrem General: Yes normal to inspection Psych Mental Status: mental status grossly normal Office Procedures EKG Details: EKG with sinus rhythm at 72/Min; no significant ST-T changes and otherwise unremarkable[place]. [id number], Complete Assessment & Plan Assessment & Plan (1) Paroxysmal atrial fibrillation: Code(s): I48.0 - Paroxysmal atrial fibrillation Plan: She is currently on combination of diltiazem, flecainide and Eliquis. No further changes. Holter shows chest PACs, but no atrial fibrillation. If any recurrence in the future, consider increasing flecainide dose. Other option would be to consider ablation. We discussed about both of these today. (2) Cholesterol retinal embolus of right eye: Code(s): H34.211 - Partial retinal artery occlusion, right eye Plan: Possibly related to carotid disease. She follows up with [facility] vascular surgery. (3) THUY (obstructive sleep apnea): Code(s): G47.33 - Obstructive sleep apnea (adult) (pediatric) Plan: Continue CPAP. (4) Bilateral carotid artery stenosis: Code(s): I65.23 - Occlusion and stenosis of bilateral carotid arteries Plan: Continue statins. She does not have any chest pain and no clinical suggestion of obstructive CAD. In the past, has had an exercise stress echocardiogram but unremarkable. Coding Level of Care Code Est Pt Level 4 (61251) Diagnoses Paroxysmal atrial fibrillation I48.0 Cholesterol retinal embolus of right eye H34.211 THUY (obstructive sleep apnea) G47.33 Bilateral carotid artery stenosis I65.23 CPT Codes EKG - CPT: 72465-[id number], Complete ([id number])
[2023-07-10 13:59] VITALS: BP 136/62; PULSE 72; BMI 35.2
== END 2023-07-10 14:26 | disposition home or self-care (01) ==
PROVIDERS: PCP Internal Medicine; Visit Provider Internal Medicine
DX: I48.0 Paroxysmal atrial fibrillation (principal); H34.211 Partial retinal artery occlusion, right eye; G47.33 Obstructive sleep apnea (adult) (pediatric); I65.23 Occlusion and stenosis of bilateral carotid arteries
CPT/HCPCS: 93010; 99214

== ENCOUNTER → 2023-07-10 13:46 | Outpatient (BNVA) | payer MEDICARE, SELFPAY | PROVIDERS: PCP Internal Medicine; Visit Provider Internal Medicine | DX: I48.0 Paroxysmal atrial fibrillation (principal); G47.33 Obstructive sleep apnea (adult) (pediatric); I65.23 Occlusion and stenosis of bilateral carotid arteries; H34.211 Partial retinal artery occlusion, right eye | CPT/HCPCS: 93005; 99212 ==

== ENCOUNTER 2023-10-22 10:36 | Outpatient (AMB) | payer MEDICARE, SELFPAY ==
--- NOTE | 2023-10-22 10:42 | A.OFFVIS_ITS ---
Intake Vital Signs 10/22/23 10:43 Height 5 ft 5 in Weight 219 lb 5.759 oz BMI 36.5 BP 130/70 Blood Pressure Location Lt brachial Position Sitting Pulse 77 Pulse Source Pulse Oximeter Pulse Oximetry (%) 96 Oxygen Delivery Method Room Air Intake Visit Reasons: COPD Intake Note: pt is here for follow up and statas she is doing well, using cpap everynight. Pump Machine Operator Required: No Allergies Sulfa (Sulfonamide Antibiotics) [SULFA (SULFONAMIDE ANTIBIOTICS)] Allergy (Intermediate, Verified 10/22/23 11:10) RASH MONSULFITES Allergy (Severe, Uncoded 10/22/23 11:10) ANAPHYLAXIS Medication List - Last Reconciled 10/22/23 by Rah Gould MD apixaban (Eliquis) 5 mg PO BID cholecalciferol (vitamin D3) 100 mcg PO DAILY diltiazem HCl CD (Cardizem CD) 180 mg PO DAILY flecainide 50 mg PO Q12H levothyroxine (Synthroid) 100 mcg PO DAILY metformin ER 500 mg PO DAILY mirabegron ER (Myrbetriq) 50 mg PO DAILY pantoprazole 40 mg PO DAILY rosuvastatin (Crestor) 40 mg PO DAILY trazodone 50 mg PO BEDTIME Do you need a note to return to daycare/school/sports/work: No HPI COPD HPI Details ASHLEY IS 73 YEARS OLD FEMALE , MODERATELY OBESE, AND KNOWN TO HAVE OBSTRUCTIVE SLEEP APNEA. She uses her CPAP very regularly every night and sleeps well. She does notice that when she sleeps in supine position she has some residual apneas, so she tries to stay in lateral position. She has no issue with the CPAP machine or the mask ( nasal pillows) She spent the winter months in [place], and now she has come back over here. She has not been able to walk for the last few weeks so has put on some weight. Breathing harrison she has no problem. [facility] Medical History Obesity (BMI 30-39.9) Taste disorder Bilateral carotid artery stenosis Nocturnal hypoxemia Cholesterol retinal embolus of right eye Paroxysmal atrial fibrillation Surgical History History of section History of knee surgery Family History Father CVD (cardiovascular disease) Mother No problems noted. Social History Alcohol intake: never Patient Tobacco Use Status: Former Tobacco user Review of Systems Const All systems reviewed & are unremarkable except as noted in HPI and below Eyes Reports no additional complaints ENT Reports dry mouth (MILD OFF AND ON, RESIDUAL FROM THE COVID INFECTION, LAST YEAR.) and Reports other (Change in taste , resulted from COVID infection last year, only mild.) Card Reports no additional complaints, Denies irregular heart rhythm (She has had no recurrence of atrial fib since she started using CPAP) and Denies leg edema Resp Reports no additional complaints GI Reports other (Change in her taste, recent) Musc Reports no additional complaints Skin/Breast Reports system reviewed and no additional complaints, except as documented Neuro Reports no additional complaints Psych Reports no additional complaints Physical Exam Vital Signs: Last Vital Signs Pulse 77 10/22/23 10:43 BP 130/70 10/22/23 10:43 Pulse Ox 96 10/22/23 10:43 Oxygen Delivery Method Room Air 10/22/23 10:43 BMI result Body Mass Index 36.5 Const General: healthy appearing, comfortable, no acute distress, alert and awake Orientation/consciousness: patient oriented x3 HEENT Head: Yes normal to inspection General nose exam: No nasal polyps present and No nasal discharge present Face and sinus: Yes sinuses nontender Mouth: oropharynx normal Throat: Yes posterior oropharynx normal Eyes General: appearance normal, both eyes and all related structures Neck Neck: Yes normal visual inspection, Yes no lymphadenopathy, Yes trachea midline and Yes no JVD Thyroid: Thyroid normal Chest Chest palpation & inspection: normal inspection of the chest and no tenderness Resp Effort & Inspection: normal respiratory effort Auscultation: clear to auscultation bilaterally, no crackles and no wheezes Percussion: percussion normal Cardio Palpation: normal PMI Rate: regular rate Rhythm: regular rhythm Heart sounds: no gallops and no murmurs GI Palpation (GI): Soft to palpation, nontender, No hepatosplenomegaly present and no masses Auscultation: normal bowel sounds Back/Spine/Pelvis Thoracic/Lumbar Spine: thoracic and lumbar spine normal to inspection Skin General skin exam: no rashes or lesions noted Neuro General: patient oriented x3 and no focal motor deficits Cranial nerves: Yes CN's II-XII intact bilaterally Extrem General: Yes normal to inspection, Yes no clubbing, cyanosis or edema and Yes no calf tenderness Psych Appearance: grossly normal and well kempt Speech and movement: Normal speech and movement present Results Reviewed Results Reviewed: Compliance report for the last 30 nights is reviewed,. She has used 30/30 nights., 100% Average use it per night 8 hours 6 minute. Pressure used mostly 9-10 cm. Residual AHI 1.3 Assessment & Plan Assessment & Plan (1) THYU (obstructive sleep apnea): Comment: Known case of obstructive sleep apnea due to moderate obesity. Is being treated very successfully with the application of CPAP, using nasal pillows. She is very compliant and benefiting . Code(s): G47.33 - Obstructive sleep apnea (adult) (pediatric) Plan: Report of compliance is reviewed with her. Commended for good compliance. Advised to continue using the CPAP regularly (2) Nocturnal hypoxemia: Comment: She had hypoxemia along with THUY before using CPAP. SINCE SHE IS USING CPAP REGULARLY , HYPOXEMIA IS RESOLVED . Code(s): G47.34 - Idiopathic sleep related nonobstructive alveolar hypoventilation Plan: No further treatment for this (3) Obesity (BMI 30-39.9): Comment: Patient is moderately obese, Since coming back to [place], has not started walking yet and has put on some weight Code(s): E66.9 - Obesity, unspecified Plan: Discussed about the weight issue, Encouraged to start walking daily, Needs to lose about 10-15 lb of weight. Coding Level of Care Code Est Pt Level 3 (60914) Diagnoses THUY (obstructive sleep apnea) G47.33 Nocturnal hypoxemia G47.34 Obesity (BMI 30-39.9) E66.9
[2023-10-22 10:43] VITALS: BP 130/70; PULSE 77; O2SAT 96; BMI 36.5
== END 2023-10-22 11:06 | disposition home or self-care (01) ==
PROVIDERS: PCP Internal Medicine; Visit Provider Internal Medicine
DX: G47.33 Obstructive sleep apnea (adult) (pediatric) (principal); G47.34 Idiopathic sleep related nonobstructive alveolar hypoventilation; E66.9 Obesity, unspecified
CPT/HCPCS: 99213

== ENCOUNTER → 2023-10-22 10:36 | Outpatient (BNVA) | payer MEDICARE, SELFPAY | PROVIDERS: PCP Internal Medicine; Visit Provider Internal Medicine | DX: G47.33 Obstructive sleep apnea (adult) (pediatric) (principal); G47.34 Idiopathic sleep related nonobstructive alveolar hypoventilation; E66.9 Obesity, unspecified; Z68.36 Body mass index [BMI] 36.0-36.9, adult | CPT/HCPCS: 99212 ==

== ENCOUNTER 2023-12-19 11:48 | Outpatient (REF) | payer MEDICARE, SELFPAY ==
[2023-12-19 13:22] LABS: MANUAL DIFF FLAG NO
[2023-12-19 13:35] LABS: Basophils Percent Auto 0.5 % (0-2); Eosinophils Absolute Auto 0.2 X10*3/uL (0.0-0.4); Eosinophils Percent Auto 2.4 % (0-4); Hematocrit 37.7 % (37.0-47.0); Hemoglobin 12.2 g/dl (12.0-16.0); Imm Gran Abs Auto 0.02 X10*3/uL (0.00-0.03); Imm Gran Pct Auto 0.3 % (0.0-0.4); Lymphocytes Absolute Auto 1.5 X10*3/uL (1.2-4.9); Lymphocytes Percent Auto 23.5 % (20-40); Mean Corpuscular HGB Conc 32.4 g/dl (31.0-35.0); Mean Corpuscular Hemoglobin 30.3 pg (27.0-33.0); Mean Corpuscular Volume 93.8 fL (80.0-98.0); Mean Platelet Volume 10.9 fL (9.4-12.3); Monocytes Absolute Auto 0.5 X10*3/uL (0.1-1.2); Monocytes Percent Auto 7.7 % (2-11); Neutrophils Absolute Auto 4.1 x10*3/uL (2.0-8.3); Neutrophils Percent Auto 65.6 % (45-73); Platelet Count 256 X10*3/uL (160-400); Red Blood Count 4.02 X10*6/uL (4.20-5.50); Red Cell Distribution Width 12.4 % (11.0-16.0); White Blood Count 6.3 X10*3/uL (4.8-10.8)
[2023-12-19 13:43] LABS: Estimated Average Glucose 163 mg/dL; Hemoglobin A1c % 7.3 % (<6.0)
[2023-12-19 13:47] LABS: Alanine Aminotransferase 12 U/L (0-31); Albumin Level 4.4 g/dL (3.5-5.0); Alkaline Phosphatase 80 U/L (39-117); Anion Gap 9 (12-20); Aspartate Amino Transferase 16 U/L (5-31); Bilirubin Total 0.4 mg/dL (0.0-1.0); Blood Urea Nitrogen 18 mg/dL (9-16); Calcium 9.8 mg/dL (8.4-10.2); Carbon Dioxide 30 mmol/L (22-29); Chloride 104 mmol/L (96-108); Estimated Glomerular Filt Rate > 60; Glucose Random 176 mg/dL (60-115); Potassium 4.3 mmol/L (3.3-5.1); Sodium 139 mmol/L (135-145); Total Protein 7.7 g/dL (6.5-8.0)
[2023-12-19 14:04] LABS: Free T4 (Free Thyroxine) 1.23 ng/dL (0.71-1.85); Thyroid Stimulating Hormone 1.83 uIU/mL (0.32-4.0)
[2023-12-19 14:16] LABS: Creatinine Urine 48.55 mg/dL; Microalbum/Creatinine Ratio Ur 41.1 ug/mg cr (<30)
== END 2023-12-19 11:49 | disposition home or self-care (01) ==
LOC: HO.10HDL 11:48
PROVIDERS: Visit Provider Internal Medicine
DX: E11.9 Type 2 diabetes mellitus without complications (principal); I48.0 Paroxysmal atrial fibrillation; I10 Essential (primary) hypertension; E03.9 Hypothyroidism, unspecified
CPT/HCPCS: 36415; 80053; 82043; 82570; 83036; 84439; 84443; 85025

== ENCOUNTER 2024-01-08 12:55 | Outpatient (AMB) | payer MEDICARE, SELFPAY ==
[2024-01-08 13:02] VITALS: BP 128/68; PULSE 72; BMI 36.3
--- NOTE | 2024-01-08 13:02 | MHC.OFFVIS ---
Vital Signs 01/08/24 13:02 Height 5 ft 5 in Weight 218 lb 4.122 oz BMI 36.3 BP 128/68 Blood Pressure Location Lt brachial Position Sitting Pulse 72 Pulse Source Monitor Intake Visit Reasons: 6 mth f/up Allergies Sulfa (Sulfonamide Antibiotics) [SULFA (SULFONAMIDE ANTIBIOTICS)] Allergy (Intermediate, Verified 10/22/23 11:10) RASH MONSULFITES Allergy (Severe, Uncoded 10/22/23 11:10) ANAPHYLAXIS Medication List - Last Reconciled 01/08/24 by Munir Ramirez MD apixaban (Eliquis) 5 mg PO BID cholecalciferol (vitamin D3) 100 mcg PO DAILY diltiazem HCl CD 180 mg PO DAILY flecainide 50 mg PO Q12H levothyroxine (Synthroid) 100 mcg PO DAILY metformin ER 500 mg PO DAILY pantoprazole 40 mg PO DAILY rosuvastatin (Crestor) 40 mg PO DAILY trazodone 50 mg PO BEDTIME vibegron (Gemtesa) 75 mg PO DAILY HPI Comments Details: Cecilia returns for follow-up regarding atrial fibrillation. She takes diltiazem/flecainide with Eliquis. In this regimen, she is doing very well. No recent issues. She states she even had occasional [place] and traveled a lot with no concerns. [facility] Medical History Obesity (BMI 30-39.9) Taste disorder Bilateral carotid artery stenosis Nocturnal hypoxemia Cholesterol retinal embolus of right eye Paroxysmal atrial fibrillation Surgical History History of section History of knee surgery Family History Father CVD (cardiovascular disease) Mother No problems noted. Social History Alcohol intake: never Patient Tobacco Use Status: Former Tobacco user Review of Systems Const Denies weakness ENT Denies dizziness Card Denies chest pain, Denies chest pain with activity, Denies syncope, Denies rapid heart rate, Denies pedal edema, Denies edema, Denies leg edema, Denies lightheadedness, Denies palpitations, Denies dyspnea, Denies dyspnea on exertion and Denies orthopnea Resp Denies cough, Denies dyspnea and Denies dyspnea on exertion GI Denies hematochezia and Denies change in stool character Musc Denies abnormal gait, Denies muscle cramps, Denies muscle weakness, Denies numbness, Denies radiating pain into limb and Denies tingling Neuro Denies abnormal gait, Denies dizziness, Denies syncope, Denies numbness, Denies tingling and Denies weakness Endo Denies palpitations Physical Exam Vital Signs: Last Vital Signs Pulse 72 01/08/24 13:02 BP 128/68 01/08/24 13:02 BMI result Body Mass Index 36.3 Const General: comfortable and no acute distress Orientation/consciousness: patient oriented x3 HEENT Other: Unremarkable Head: Yes normal to inspection Neck Neck: Yes normal visual inspection Chest Chest palpation & inspection: normal inspection of the chest Resp Auscultation: clear to auscultation bilaterally Cardio Palpation: normal PMI Heart sounds: S1 normal heart sound present, S2 normal heart sound present, no gallops, no murmurs and no rubs GI Palpation (GI): Soft to palpation Back/Spine/Pelvis Other: unremarkable Skin General skin exam: no rashes or lesions noted Neuro General: patient oriented x3 Extrem General: Yes normal to inspection Psych Mental Status: mental status grossly normal Office Procedures EKG Details: EKG with sinus rhythm at 72/Min; no significant ST-T changes and otherwise unremarkable[place]. [id number], Complete Assessment & Plan Assessment & Plan (1) Paroxysmal atrial fibrillation: Code(s): I48.0 - Paroxysmal atrial fibrillation Category: Medical Plan: Stable on the current dose of diltiazem, flecainide and Eliquis. No changes made today. (2) Cholesterol retinal embolus of right eye: Code(s): H34.211 - Partial retinal artery occlusion, right eye Category: Medical Plan: Possibly related to carotid disease. She follows up with [facility] vascular surgery. (3) THUY (obstructive sleep apnea): Comment: Known case of obstructive sleep apnea due to moderate obesity. Is being treated very successfully with the application of CPAP, using nasal pillows. She is very compliant and benefiting . Code(s): G47.33 - Obstructive sleep apnea (adult) (pediatric) Category: Medical Plan: Continue CPAP. (4) Bilateral carotid artery stenosis: Code(s): I65.23 - Occlusion and stenosis of bilateral carotid arteries Category: Medical Plan: Continue statins. She does not have any chest pain and no clinical suggestion of obstructive CAD. In the past, has had an exercise stress echocardiogram but unremarkable. Orders: Orders CA echo transthoracic complete 6 Months I48.0 - Paroxysmal atrial fibrillation Coding Level of Care Code Est Pt Level 4 (40487) Diagnoses Paroxysmal atrial fibrillation I48.0 Cholesterol retinal embolus of right eye H34.211 THUY (obstructive sleep apnea) G47.33 Bilateral carotid artery stenosis I65.23 CPT Codes EKG - CPT: 61590-[id number], Complete ([id number])
== END 2024-01-08 13:30 | disposition home or self-care (01) ==
PROVIDERS: PCP Internal Medicine; Visit Provider Internal Medicine
DX: I48.0 Paroxysmal atrial fibrillation (principal); H34.211 Partial retinal artery occlusion, right eye; G47.33 Obstructive sleep apnea (adult) (pediatric); I65.23 Occlusion and stenosis of bilateral carotid arteries
CPT/HCPCS: 93010; 99214

== ENCOUNTER → 2024-01-08 12:55 | Outpatient (BNVA) | payer MEDICARE, SELFPAY | PROVIDERS: PCP Internal Medicine; Visit Provider Internal Medicine | DX: I65.23 Occlusion and stenosis of bilateral carotid arteries (principal); I48.0 Paroxysmal atrial fibrillation; H34.211 Partial retinal artery occlusion, right eye; G47.33 Obstructive sleep apnea (adult) (pediatric); Z99.89 Dependence on other enabling machines and devices | CPT/HCPCS: 93005; 99212 ==

== ENCOUNTER 2024-01-31 10:07 | Outpatient (REF) | payer MEDICARE, SELFPAY ==
[2024-01-31 10:55] LABS: Appearance Urine Clear; Color Urine Yellow; Glucose Urine UA Negative (Negative); Leukocyte Esterase Urine Trace (Negative); Nitrite Urine Negative (Negative); UMIC TRIGGER UACC YES; Urine Blood Negative (Negative); Urine Ketones Negative (Negative); Urine Protein Negative (Neg-Trace)
[2024-01-31 10:58] LABS: Bacteria Urine None Seen (None Seen); Hyaline Casts Urine 0-2 /LPF (0-2); RBC Urine 0-2 /HPF (0-2); Squamous Epithelial Cell Urine 0-2 /HPF (0-2); WBC Urine 0-5 /HPF (0-5)
== END 2024-01-31 10:08 | disposition home or self-care (01) ==
LOC: HO.LAB 10:07
PROVIDERS: PCP Internal Medicine; Visit Provider Internal Medicine
DX: R30.0 Dysuria (principal)
CPT/HCPCS: 81001; 87086

== ENCOUNTER 2024-04-20 10:35 | Outpatient (AMB) | payer MEDICARE, SELFPAY ==
[2024-04-20 10:46] VITALS: BP 118/58; PULSE 78; O2SAT 95; BMI 37.4
--- NOTE | 2024-04-20 10:46 | MHC.OFFVIS ---
Vital Signs 04/20/24 10:46 Height 5 ft 5 in Weight 224 lb 13.944 oz BMI 37.4 BP 118/58 L Blood Pressure Location Lt brachial Position Sitting Pulse 78 Pulse Source Pulse Oximeter Pulse Oximetry (%) 95 Oxygen Delivery Method Room Air Intake Visit Reasons: COPD Intake Note: pt is here for follow up and feels okay, cpap is going well just stuffy in am. had flu and covid vaccines. 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: No Allergies Sulfa (Sulfonamide Antibiotics) [SULFA (SULFONAMIDE ANTIBIOTICS)] Allergy (Intermediate, Verified 04/20/24 11:12) RASH MONSULFITES Allergy (Severe, Uncoded 04/20/24 11:12) ANAPHYLAXIS Medication List - Last Reconciled 04/20/24 by Rah Gould MD apixaban (Eliquis) 5 mg PO BID cholecalciferol (vitamin D3) 100 mcg PO DAILY diltiazem HCl CD 180 mg PO DAILY flecainide 50 mg PO Q12H levothyroxine (Synthroid) 100 mcg PO DAILY metformin ER 500 mg PO DAILY pantoprazole 40 mg PO DAILY rosuvastatin (Crestor) 40 mg PO DAILY trazodone 50 mg PO BEDTIME vibegron (Gemtesa) 75 mg PO DAILY Do you need a note to return to daycare/school/sports/work: No HPI HPI COPD: Details: THIS 74 YEARS OLD VERY PLEASANT FEMALE, IS HERE FOR FOLLOW-UP FOR HER SLEEP APNEA. SHE REMAINS WHO GROSSLY OBESE, CONTINUES TO USE CPAP EVERY NIGHT REGULARLY, AND SLEEPS GOOD. SHE SHE CARRIES HER CPAP WITH HER WHEN SHE GOES ON VACATIONS OR WHEN [place]. SHE HAS NO ISSUES WITH THE CPAP DEVICE ARE THE MASK. WEIGHT HAS REMAINED UNCHANGED. SHE HAS NO WHEEZING COUGH OR SHORTNESS OF BREATH. [facility] Medical History Obesity (BMI 30-39.9) Taste disorder Bilateral carotid artery stenosis Nocturnal hypoxemia Cholesterol retinal embolus of right eye Paroxysmal atrial fibrillation Surgical History History of section History of knee surgery Family History Father CVD (cardiovascular disease) Mother No problems noted. Social History Alcohol intake: never Patient Tobacco Use Status: Former Tobacco user Review of Systems Const All systems reviewed & are unremarkable except as noted in HPI and below Eyes Reports no additional complaints ENT Reports dry mouth (MILD OFF AND ON, RESIDUAL FROM THE COVID INFECTION, LAST YEAR.) and Reports other (Change in taste , resulted from COVID infection last year, only mild.) Card Reports no additional complaints, Denies irregular heart rhythm (She has had no recurrence of atrial fib since she started using CPAP) and Denies leg edema Resp Reports no additional complaints GI Reports other (Change in her taste, recent) Musc Reports no additional complaints Skin/Breast Reports system reviewed and no additional complaints, except as documented Neuro Reports no additional complaints Psych Reports no additional complaints Physical Exam Vital Signs: Last Vital Signs Pulse 78 04/20/24 10:46 BP 118/58 L 04/20/24 10:46 Pulse Ox 95 04/20/24 10:46 Oxygen Delivery Method Room Air 04/20/24 10:46 BMI result Body Mass Index 37.4 Const General: healthy appearing, comfortable, no acute distress, alert and awake Orientation/consciousness: patient oriented x3 HEENT Head: Yes normal to inspection General nose exam: No nasal polyps present and No nasal discharge present Face and sinus: Yes sinuses nontender Mouth: oropharynx normal Throat: Yes posterior oropharynx normal Eyes General: appearance normal, both eyes and all related structures Neck Neck: Yes normal visual inspection, Yes no lymphadenopathy, Yes trachea midline and Yes no JVD Thyroid: Thyroid normal Chest Chest palpation & inspection: normal inspection of the chest and no tenderness Resp Effort & Inspection: normal respiratory effort Auscultation: clear to auscultation bilaterally, no crackles and no wheezes Percussion: percussion normal Cardio Palpation: normal PMI Rate: regular rate Rhythm: regular rhythm Heart sounds: no gallops and no murmurs GI Palpation (GI): Soft to palpation, nontender, No hepatosplenomegaly present and no masses Auscultation: normal bowel sounds Back/Spine/Pelvis Thoracic/Lumbar Spine: thoracic and lumbar spine normal to inspection Skin General skin exam: no rashes or lesions noted Neuro General: patient oriented x3 and no focal motor deficits Cranial nerves: Yes CN's II-XII intact bilaterally Extrem General: Yes normal to inspection, Yes no clubbing, cyanosis or edema and Yes no calf tenderness Psych Appearance: grossly normal and well kempt Speech and movement: Normal speech and movement present Results Reviewed Results Reviewed: COMPLIANCE REPORT IS REVIEWED AND SHE HAS USED 100% OF THE NIGHTS. AVERAGE USE IT PER NIGHT 8 HOURS 25 MINUTES. .PRESSURE USED 8-9 CM NO SIGNIFICANT AIR LEAK. RESIDUAL AHI ONLY 0.4 Assessment & Plan Assessment & Plan (1) Obesity (BMI 30-39.9): Comment: Patient is moderately obese, TRIES TO WATCH HER DIET AND REMAINS PHYSICALLY ACTIVE. WEIGHT HIS BASICALLY UNCHANGED. Code(s): E66.9 - Obesity, unspecified Category: Medical Plan: Discussed about need to watch diet more carefully and also try to walk more, daily (2) THUY (obstructive sleep apnea): Comment: Known case of obstructive sleep apnea due to moderate obesity. Being treated with CPAP, which she uses very regularly. Sleep is much better, and more than 8 hours per night. Compliance is 100%. Code(s): G47.33 - Obstructive sleep apnea (adult) (pediatric) Category: Medical Plan: Commended for good compliance. Continue using CPAP regularly every night. (3) Nocturnal hypoxemia: Comment: She had hypoxemia along with THUY before using CPAP. SINCE SHE IS USING CPAP REGULARLY , HYPOXEMIA IS RESOLVED . Code(s): G47.34 - Idiopathic sleep related nonobstructive alveolar hypoventilation Category: Medical Plan: N/A Coding Level of Care Code Est Pt Level 3 (11254) Diagnoses Obesity (BMI 30-39.9) E66.9 THUY (obstructive sleep apnea) G47.33 Nocturnal hypoxemia G47.34
== END 2024-04-20 11:13 | disposition home or self-care (01) ==
PROVIDERS: PCP Internal Medicine; Visit Provider Internal Medicine
DX: E66.9 Obesity, unspecified (principal); G47.33 Obstructive sleep apnea (adult) (pediatric); G47.34 Idiopathic sleep related nonobstructive alveolar hypoventilation
CPT/HCPCS: 99213

== ENCOUNTER → 2024-04-20 10:35 | Outpatient (BNVA) | payer MEDICARE, SELFPAY | PROVIDERS: PCP Internal Medicine; Visit Provider Internal Medicine | DX: G47.33 Obstructive sleep apnea (adult) (pediatric) (principal); G47.34 Idiopathic sleep related nonobstructive alveolar hypoventilation; E66.09 Other obesity due to excess calories; Z99.89 Dependence on other enabling machines and devices; Z68.37 Body mass index [BMI] 37.0-37.9, adult | CPT/HCPCS: 99212 ==

== ENCOUNTER 2024-06-10 10:38 | Outpatient (REF) | payer MEDICARE, SELFPAY ==
--- NOTE | ~2024-06-10 | MM_ITS ---
EXAMINATION: MM SCREENING DIGITAL BREAST TOMOSYNTHESIS, BILATERAL CLINICAL INFORMATION: Screening. Asymptomatic. COMPARISON: Mammography: Comparison is made with available priors TECHNIQUE: Digital breast mammography with tomosynthesis is performed in both the craniocaudal and mediolateral oblique views along with computer-aided detection (CAD). FINDINGS: There are scattered areas of fibroglandular density (ACR BI-RADS breast composition Category b). There are no significant masses, abnormal calcifications, or other abnormalities. MM/MM tomosynthesis screening BI IMPRESSION: No mammographic evidence of malignancy. ASSESSMENT: BI-RADS BI-RADS 1 - Negative RECOMMENDATION: Routine annual mammography screening. 1 year F/U This examination should not preclude the clinical evaluation of a suspicious palpable abnormality. This patient's information was entered into a reminder system with a target due date for their next mammogram. Electronically signed by: Irene Alexis DO 06/19/2024 09:26 AM JUICE
== END 2024-06-10 10:39 | disposition home or self-care (01) ==
LOC: HO.MAMMO 10:38
PROVIDERS: PCP Internal Medicine; Visit Provider Internal Medicine
DX: Z12.31 Encounter for screening mammogram for malignant neoplasm of breast (principal)
CPT/HCPCS: 77063; 77067

== ENCOUNTER → 2024-06-10 11:00 | Outpatient (BNV) | payer MEDICARE, SELFPAY | PROVIDERS: PCP Internal Medicine; Visit Provider Internal Medicine | DX: Z12.31 Encounter for screening mammogram for malignant neoplasm of breast (principal) | CPT/HCPCS: 77063; 77067 ==

== ENCOUNTER → 2024-06-26 09:49 | Outpatient (REF) | payer MEDICARE, SELFPAY ==
--- NOTE | 2024-06-26 09:52 | CA_ITS ---
Transthoracic Echocardiogram Patient (Last, First, Middle): Cecilia Bridges, Gender: Female Date of : 1950 Age: 74 Procedure Date: 06/26/2024 Procedure Type: Transthoracic Echocardiogram Location: OP Height: 165. cm Weight: 99.34 kg BSA: 2.06 m2 Heart Rate: 86 bpm BP: 142 / 65 mmHg Lobsterman: TRAVON Cristina MD: Munir Ramirez MD Radar Operator: Reyes Llanes MD Symptoms: I48.0 - Paroxysmal atrial fibrillation Study Quality: Fair ECG Rhythm: Sinus Conclusions: - 1. Normal LV ejection fraction of 65-70% with mild LVH with impaired relaxation filling pattern 2. Mildly dilated left atrium 3. Mild calcific changes of mitral valve with normal cardiac valvular Dopplers 4. Normal RV systolic pressure 5. No gross pericardial effusion Findings Left Ventricle Normal left ventricular size and systolic function. There is mildly increased left ventricular wall thickness. The visually estimated ejection fraction is between 65-70%. Spectral Doppler is indicative of an impaired relaxation filling pattern. E/E prime ratio is between 8 and 15 consistent with indeterminate filling pressures. Right Ventricle Normal right ventricular cavity size and systolic function. Atria The left atrium is mildly dilated. There is no evidence of interatrial shunt. The right atrium is likely dilated. Aortic Valve Normal aortic valve structure and function. There is no aortic valve stenosis. There is no aortic valve regurgitation. Mitral Valve There is mild anterior and posterior mitral leaflet thickening. There is mild mitral annular calcification. There is trace mitral valve regurgitation. There is no mitral valve stenosis. Pulmonic Valve The pulmonic valve was not well visualized. Tricuspid Valve Likely normal tricuspid valve structure and function. There is mild tricuspid valve regurgitation. The right ventricular systolic pressure is normal. The right ventricular systolic pressure is 22 mmHg. Normal right atrial pressure. Mild pulmonary hypertension is present. Great Vessels All visible segments of the aorta are normal in size. The pulmonary artery was not well visualized. There is no dilatation of the ascending aorta measuring 3.00 cm. Venous The inferior vena cava is normal in size and collapses greater than 50% with inspiration. Pericardium/Pleural There is no evidence of pericardial effusion. Prior Study Comparison No significant change compared to prior study dated: 09/16/2019. Measurements 2D Linear Measurements IVSd: 1.20 0.6-0.9/0.6-1.0 cm LVIDd: 4.20 3.9-5.3/4.2-5.9 cm LVIDd Index: 2.04 2.4-3.2/2.2-3.1 cm/m2 LVIDs: 2.43 2.0-3.6 cm LVPWd: 1.25 0.7-1.1 cm LA Diam: 4.40 2.7-3.8/3.0-4.0 cm LAIDs Index: 2.14 1.5-2.3 cm/m2 LV Mass: 193.92 67-162/88-224 g LV Mass Index: 94.14 43-95/49-115 g/m2 LVOT Diam: 1.80 3.0+(-)1.3 cm 2D Systolic Function EF 4C: 69.90 >55% EF 2C: 57.80 >55% EF BiP: 65.10 >55% Mitral Valve MV Pk E: 1.10 MV PK A: 0.96 MV Decel Time: 256.00 E/A: 1.10 E'Lateral: 7.72 E'Medial: 6.42 E/E' Med: 17.10 E/E' Lat: 14.20 PHT: 75.00 MVA PHT: 2.93 Decel Towns: 4.29 Aortic Valve AoV Pk Deion: 1.57 AoV Mn Deion: 1.18 AoV VTI: 0.34 AoV Pk Grad: 10.00 Aov Mn Grad: 6.00 PETER Cont.VTI: 2.24 LVOT LVOT Pk Deion: 1.32 LVOT Mn Deion: 0.97 LVOT VTI: 0.30 LVOT Pk Grad: 7.00 LVOT Mn Grad: 4.00 LVOT Diam: 1.80 LVOT Area: 2.54 Diastolic Function MV Pk E: 1.10 MV Pk A: 0.96 E/A: 1.10 E'Medial: 6.42 E/E' Med: 17.10 E' Laterial: 7.72 E/E' Lat: 14.20 Right Ventricle TAPSE (mm): 26.30 TVS' Deion: 11.90 Tricuspid Valve TR Pk Deion: 2.16 TR Pk Grad: 19.00 RA Press: 3.00 RVSP: 22.00 Great Vessels Aorta Sinus of Valsalva: 3.30 2.0-3.5 cm Ao Asc: 3.00 2.1-3.4 cm Pulmonary Valve PV Pk Deion: 0.87 Peak PV Grad: 3.00 Updated in Other Vendor System with Status of Final Reyes Llanes MD electronically signed on 06/27/2024 2:30:26 PM with status of Final
--- OUTSIDE RECORDS SUMMARY | 2024-06-26 09:55 | XMS_ITS | Continuity of Care Document ---
Author Organization [facility] Address [address] [place] [address]- Care Team Providers Care Pain Management Nurse Practitioner Name Role Phone Sánchez Metzger MD Primary Care Physician [phone] Encounter 06/08/24 - 06/15/24 [facility] [address], [address] [place] [address]- Attending Physician: Kinga Spann Admitting Physician: Kinga Spann Referring Physician: Kinga Spann Encounter Type: OutPatient One Time Allergies, Adverse Reactions, Alerts Substance Criticality Severity Reaction Reaction Severity Status sulfa drugs Active Other Food Allergy 1 Active 1Tanins- grapes/wine Immunizations Given and Recorded Vaccine Date Status Refusal Reason Hepatitis A Adult Vaccine 07/28/19 Given Medications Cardizem 120 mg oral tablet 1 tablet = 120 mg, By Mouth, Daily, 0 Refills, Maintenance, 10/01/19 9:41:00 AM EDT Start Date: 10/01/19 Status: Ordered Repeat number: 1 Eliquis 5 mg oral tablet 1 tablet = 5 mg, By Mouth, 2 times a day, # 60 tablet, 0 Refills, Maintenance, 10/01/19 9:42:00 AM EDT, Tablet Start Date: 10/01/19 Status: Ordered Quantity: 60.0 Unit: tablet Repeat number: 1 flecainide 50 mg oral tablet 50 mg, 1, tablet, By Mouth, Every 12 hours, Refills 0, Maintenance, 07/19/23 2:58:00 PM EST, Partial fill upon patient request if the prescription is for a schedule II opioid drug. Start Date: 07/19/23 Status: Ordered Repeat number: 1 Gabapentin = 300 mg, By Mouth, 2 times a day, 0 Refills, Maintenance, 05/22/22 3:22:00 PM EST, Partial fill upon patient request if the prescription is for a schedule II opioid drug. Start Date: 05/22/22 Status: Ordered Repeat number: 1 Gemtesa 75 mg oral tablet 1 tablet, By Mouth, Daily, # 90 tablet, 2 Refills, Maintenance, 02/07/24 8:55:00 AM EDT, [id number], 167.64, cm, 10/16/23 9:06:00 EDT, Height, 99.4, kg, 10/23/22 10:55:00 EDT, Dry Weight Start Date: 02/07/24 Status: Ordered Quantity: 90.0 Unit: tablet Repeat number: 1 levothyroxine 0.1 mg oral tablet 1 tablet = 100 mcg, By Mouth, Daily, 0 Refills, Maintenance, 05/26/21 7:46:00 AM EST, Partial fill upon patient request if the prescription is for a schedule II opioid drug. Start Date: 05/26/21 Status: Ordered Repeat number: 1 Meclizine By Mouth, PRN as needed for dizziness, 0 Refills, Maintenance, 10/23/22 10:56:00 AM EDT, Partial fill upon patient request if the prescription is for a schedule II opioid drug. Start Date: 10/23/22 Status: Ordered Repeat number: 1 metFORMIN 500 mg oral tablet 1 tablet = 500 mg, By Mouth, 2 times a day, # 60 tablet, 0 Refills, Maintenance, 02/11/20 9:54:00 AMEDT, Tablet Start Date: 02/11/20 Status: Ordered Quantity: 60.0 Unit: tablet Repeat number: 1 mirabegron 50 mg oral tablet, extended release 1 tablet = 50 mg, By Mouth, Daily, do not crush or chew, # 90 tablet, 2 Refills, Maintenance, 07/19/23 3:13:00 PM EST, ER Tablet, [facility]/pharmacy #[id number], Partial fill upon patient request if the prescription is for a schedule II opioid drug., 167.64, cm, 07/19/23 14:47:00 EST, Height, 99.4, kg, 10/23/22 10:55:00 EDT, Dry Weight Start Date: 07/19/23 Status: Ordered Quantity: 90.0 Unit: tablet Repeat number: 3 Myrbetriq 25 mg oral tablet, extended release 1 tablet, By Mouth, Daily, DO NOT CRUSH OR CHEW., # 90 tablet, 1 Refills, Maintenance, 10/01/22 5:14:00 PM EDT, [facility], 167.64, cm, 08/24/22 8:31:00 EST, Height, 94, kg, 05/22/22 15:21:00 EST, Dry Weight Start Date: 10/01/22 Status: Ordered Quantity: 90.0 Unit: tablet Repeat number: 1 pantoprazole 20 mg oral delayed release tablet 1 tablet = 20 mg, By Mouth, Daily, # 30 tablet, 0 Refills, Maintenance, 05/22/22 3:23:00 PM EST, CR Tablet Start Date: 05/22/22 Status: Ordered Quantity: 30.0 Unit: tablet Repeat number: 1 rosuvastatin 40 mg oral capsule 1 capsule = 40 mg, By Mouth, Daily, # 30 capsule, 0 Refills, Maintenance, 03/31/21 2:39:00 PM EDT, Capsule, Partial fill upon patient request if the prescription is for a schedule II opioid drug. Start Date: 03/31/21 Status: Ordered Quantity: 30.0 Unit: capsule Repeat number: 1 Synthroid By Mouth, Daily, Refills 0, Maintenance, 12/10/23 8:43:00 AM EDT, Partial fill upon patient request if the prescription is for a schedule II opioid drug. Start Date: 12/10/23 Status: Ordered Repeat number: 1 traZODone 50 mg oral tablet 50 mg, 1, tablet, Refills 0, Maintenance, 02/27/23 2:36:00 PM EDT, Partial fill upon patient requestif the prescription is for a schedule II opioid drug. Start Date: 02/27/23 Status: Ordered Repeat number: 1 Vitamin D3 2000 intl units oral tablet 2 tablet = 100 mcg, By Mouth, Daily, 0 Refills, Maintenance, 01/30/19 9:53:45 AM EDT Start Date: 01/30/19 Status: Ordered Repeat number: 1 Problem List Condition Confirmation Course Effective Dates Status Health St atus Informant Arthritis Confirmed Active Atrial fibrillation Confirmed Active Diabetes Confirmed Active Heart disease Confirmed Active Heartburn Confirmed Active Hypothyroid Confirmed Active Sciatica Confirmed Active Severe obesity (BMI 35.0-39.9) with comorbidity Confirmed Active Results Radiology Reports * Exam Date Time Procedure Performing Provider Status 06/05/24 8:54 AM US Renal Bladder Andrez Chase; E[facility] (Verified) Notes: (US Renal Bladder) Reason For Exam: Calculus of kidney RESULT: US Renal Bladder US Renal Bladder Study performed at [facility], [address] [place] [address] Reason: Calculus of kidney COMPARISON: Renal ultrasound dated 07/17/2023. Correlation is made with multiple prior CT abdomen/pelvis studies, most recently dated 10/16/2023. FINDINGS: Right kidney: 11.8 cm in length. No hydronephrosis. Normal parenchymal thickness and echotexture. There is a 5 mm stone in the lower pole. No suspicious mass. Left kidney: 12.3 cm in length. No hydronephrosis. Normal parenchymal thickness and echotexture. There is a 3 mm stone in the lower pole. There is a 1.4 x 1.4 cm hypoechoic lesion in the parapelvic region of the upper pole without posterior acoustic enhancement to suggest fluid content. No corresponding focal lesions seen on prior CTs. Urinary bladder: Normal morphology. No stone, mass, wall thickening or debris. Prevoid volume is 434 cc. Bilateral ureteral jets are identified on color Doppler imaging suggesting ureterovesicular junction patency. Liver: Partially-imaged liver is echogenic likely representing hepatic steatosis. IMPRESSION: 1. Bilateral nonobstructing nephrolithiasis. 2. Hypoechoic lesion in left kidney upper pole does not appear to represent a cyst and no corresponding focal abnormality seen on prior CTs. Follow-up with CT or MRI utilizing renal mass protocol should be considered. 3. Hepatic steatosis. An actionable message (Yellow) has been communicated via the [employer] system on 06/08/2024 9:04 AM, Message ID [id number]. WSN: [id number] Ordering Physician: Kinga Velasquez Dictated By: Talya Mccord MD Dictated Date/Time: 06/08/24 9:04 am Reviewed By: Talya Mccord MD Signed By: Talya Mccord MD Signed Date/Time: 06/08/24 9:04 am Transcribed By: RODDY Transcribed Date/Time: 06/08/24 8:58 am Social History Social History Type Response Smoking Status Former smoker, quit more than 30 days ago entered on: 01/30/19 Sex Sex Representation Female (finding) Patient Care team information Care Team Personnel Name: Sánchez Metzger MD Position: [facility] Outreach Member Role: PCP Address: [address] [place] [address] Sán[place] [address]- Telecom: Care Team Related Persons Name: ASIA BUCKNER Insurance Providers Guarantor name: ASHLEY BUCKNER Health Plan Information #: 1 Payer: NA Member Number: [id number] Policy Number: NA Group Number: [id number] Health Plan Information #: 2 Payer: NA Member Number: [id number] Policy Number: NA Group Number: [id number]
== END ==
LOC: HO.CARD 09:49
PROVIDERS: PCP Internal Medicine; Visit Provider Internal Medicine
DX: I48.0 Paroxysmal atrial fibrillation (principal)
CPT/HCPCS: 93306

== ENCOUNTER → 2024-06-26 09:52 | Outpatient (BNV) | payer MEDICARE, SELFPAY | PROVIDERS: PCP Internal Medicine; Visit Provider Internal Medicine Cardiovascular Disease | DX: I36.1 Nonrheumatic tricuspid (valve) insufficiency (principal); I34.81 Nonrheumatic mitral (valve) annulus calcification; I27.20 Pulmonary hypertension, unspecified; I48.0 Paroxysmal atrial fibrillation | CPT/HCPCS: 93306 ==

== ENCOUNTER 2024-07-09 14:44 | Outpatient (AMB) | payer MEDICARE, SELFPAY ==
--- OUTSIDE RECORDS SUMMARY | 2024-07-09 14:46 | XMS_ITS | Continuity of Care Document ---
Author Organization [facility] Address [address] [place] [address]- Care Team Providers Care [place] Name Role Phone Sánchez Metzger MD Primary Care Physician [phone] Encounter 06/25/24 - 07/02/24 [facility] [address], [address] [place] [address]- Attending Physician: Kinga Spann Admitting Physician: Kinga [...] Maintenance, 02/07/24 8:55:00 AM EDT, [facility], 167.64, cm, 10/16/23 9:06:00 EDT, Height, 99.4, [...] Maintenance, 07/19/23 3:13:00 PM EST, ER Tablet, [facility]/pharmacy #[id number], Partial fill upon patient request if the prescription is for a schedule II opioid drug., 167.64, cm, 07/19/23 14:47:00 EST, Height, 99.4, kg, 10/23/22 10:55:00 EDT, Dry Weight Start Date: 07/19/23 Status: Ordered Quantity: 90.0 Unit: tablet Repeat number: 3 mirabegron 50 mg oral tablet, extended release 1 tablet = 50 mg, By Mouth, Daily, do not crush or chew, # 90 tablet, 3 Refills, Maintenance, 06/23/24 12:43:00 PM EST, ER Tablet, [id number], Partial fill upon patient request if the prescription is for a schedule II opioid drug., 167.64, cm, 04/22/24 11:30:00 EDT, Height, 99.4, kg, 10/23/22 10:55:00 EDT, Dry Weight Start Date: 06/23/24 Status: Ordered Quantity: 90.0 Unit: tablet Repeat number: 4 Myrbetriq 25 mg oral tablet, extended release 1 tablet, By Mouth, Daily, DO NOT CRUSH OR CHEW., # 90 tablet, 1 Refills, Maintenance, 10/01/22 5:14:00 PM EDT, [facility], 167.64, cm, 08/24/22 8:31:00 EST, Height, 94, [...] Exam Date Time Procedure Performing Provider Status 06/25/24 9:[address] Abdomen W/O + W/IV Contrast Isabel Varghese ms; John (Verified) Notes: (CT Abdomen W/O + W/IV Contrast) Reason For Exam: renal mass RESULT: CT Abdomen W/O + W/IV Contrast CT Abdomen W/O + W/IV Contrast Reason: renal mass TECHNIQUE: Helical CT scan was performed through the abdomen without and with nonionic IV contrast.Renal mass protocol was used. Images are formatted in axial, sagittal and coronal planes. 100 cc ofIsovue 300 was administered intravenously. This study was performed without oral contrast. Weight-based protocol using automatic tube modulation was used to optimize exposure parameters. [facility] performed at [facility], [address] [place] [address] COMPARISON: CT abdomen/pelvis dated 10/16/2023, renal ultrasound dated 06/05/2024. FINDINGS: Telephone Technician View Findings, Lines and Tubes: None. Visualized Chest: Lung bases are clear. No pleural effusion. The heart is normal in size. No pericardial effusion. Diaphragm: Mildly elevated right hemidiaphragm. Liver: Normal. Gallbladder: No CT evidence of gallbladder pathology. Bile ducts: No biliary ductal dilation. Spleen: Normal. Pancreas: Normal. Adrenal glands: Normal. Kidneys and ureters: Punctate stone in the left kidney lower pole and a punctate stone in right kidney lower pole. Previously seen 4 mm right lower pole stone is no longer seen. No hydronephrosis or suspicious masses. There is a prominent column of Pj in the left kidney interpolar region, whichmay explain the finding on recent ultrasound. Stomach, small bowel, and large bowel: No abnormal distention, wall thickening, or surrounding inflammatory change. There is a 3.6 cm diverticulum arising from the second portion of duodenum. There is diverticulosis of the partially visualized sigmoid colon. Peritoneum and retroperitoneum: No ascites or pneumoperitoneum. No omental or mesenteric lesions. Lymph nodes: No enlarged lymph nodes. Blood vessels: Moderate atherosclerotic vascular calcification. No aortic aneurysm. No evidence of venous thrombosis. Abdominal wall: Unremarkable. Bones: No acute abnormality. Degenerative changes in the visualized spine. IMPRESSION: 1. No suspicious renal lesion. Prominent column of Pj in the left kidney interpolar region may explain the sonographic finding. 2. Bilateral nonobstructing nephrolithiasis. WSN: [id number] Ordering Physician: Kinga Velasquez Dictated By: Talya Mccord MD Dictated Date/Time: 06/25/24 12:34 p Reviewed By: Talya Mccord MD Signed By: Talya Mccord MD Signed Date/Time: 06/25/24 12:34 pm Transcribed By: RODDY Transcribed Date/Time: 06/25/24 12:28 pm Social History Social History Type Response Smoking Status Former smoker, quit more than 30 days ago entered on: 01/30/19 Sex Sex Representation Female (finding) Patient Care team information Care Team Personnel Name: Sánchez Metzger MD Position: [facility] Outreach Member Role: PCP Address: [address] [place] [address] Sánchez Metzger MD [address] Telecom: Care Team Related Persons Name: ASIA BUCKNER Insurance Providers Guarantor name: ASHLEY CLANCYELLE Health Plan Information #: 1 Payer: NA Member Number: [id number] Policy Number: NA Group Number: [id number] Health Plan Information #: 2 Payer: NA Member Number: [id number] Policy Number: NA Group Number: NA
[2024-07-09 14:47] VITALS: BP 130/60; PULSE 80; BMI 36.7
--- NOTE | 2024-07-09 14:47 | A.OFFVIS_ITS ---
Vital Signs 07/09/24 14:47 Height 5 ft 5 in Weight 220 lb 7.396 oz BMI 36.7 BP 130/60 Blood Pressure Location Lt brachial Position Sitting Pulse 80 Pulse Source Monitor Intake Visit Reasons: 6 mth s/p echo Well Reactivator Operator Required: No Accompanied by: Self / Same As Patient Allergies Sulfa (Sulfonamide Antibiotics) [SULFA (SULFONAMIDE ANTIBIOTICS)] Allergy (Intermediate, Verified 04/20/24 11:12) RASH MONSULFITES Allergy (Severe, Uncoded 04/20/24 11:12) ANAPHYLAXIS Medication List - Last Reconciled 07/09/24 by Munir Ramirez MD apixaban (Eliquis) 5 mg PO BID cholecalciferol (vitamin D3) 100 mcg PO DAILY diltiazem HCl CD 180 mg PO DAILY flecainide 50 mg PO Q12H levothyroxine (Synthroid) 100 mcg PO DAILY metformin ER 500 mg PO DAILY pantoprazole 40 mg PO DAILY rosuvastatin (Crestor) 40 mg PO DAILY trazodone 50 mg PO BEDTIME vibegron (Gemtesa) 75 mg PO DAILY HPI Comments Details: Cecilia returns for follow-up regarding atrial fibrillation. She takes diltiazem/flecainide with Eliquis. In this regimen, she is doing very well. Overall, she is doing fine. No episodes of atrial fibrillation. No other cardiac symptoms like angina or in fact anything of concern. [facility] Medical History Obesity (BMI 30-39.9) Taste disorder Bilateral carotid artery stenosis Nocturnal hypoxemia Cholesterol retinal embolus of right eye Paroxysmal atrial fibrillation Surgical History History of section History of knee surgery Family History Father CVD (cardiovascular disease) Mother No problems noted. Social History (Updated 07/09/24 @ 14:50 by Mallory Conroy CMA) Alcohol intake: never Patient Tobacco Use Status: Never used Tobacco Review of Systems Const Denies chills, Denies fatigue, Denies fever(s), Denies frequent falls, Denies weakness, Denies weight gain and Denies weight loss ENT Denies dizziness Card Denies chest pain, Denies leg edema, Denies lightheadedness, Denies palpitations, Denies dyspnea and Denies dyspnea on exertion Resp Denies cough, Denies dyspnea and Denies dyspnea on exertion GI Denies hematochezia Musc Denies abnormal gait, Denies muscle weakness, Denies numbness, Denies radiating pain into limb and Denies tingling Neuro Denies abnormal gait, Denies dizziness, Denies frequent falls, Denies numbness, Denies tingling and Denies weakness Endo Denies fatigue and Denies palpitations Physical Exam Vital Signs: Last Vital Signs Pulse 80 07/09/24 14:47 BP 130/60 07/09/24 14:47 BMI result Body Mass Index 36.7 Const General: comfortable and no acute distress Orientation/consciousness: patient oriented x3 HEENT Other: Unremarkable Head: Yes normal to inspection Neck Neck: Yes normal visual inspection Chest Chest palpation & inspection: normal inspection of the chest Resp Auscultation: clear to auscultation bilaterally Cardio Palpation: normal PMI Heart sounds: S1 normal heart sound present, S2 normal heart sound present, no gallops, no murmurs and no rubs GI Palpation (GI): Soft to palpation Back/Spine/Pelvis Other: unremarkable Skin General skin exam: no rashes or lesions noted Neuro General: patient oriented x3 Extrem General: Yes normal to inspection Psych Mental Status: mental status grossly normal Office Procedures EKG Details: EKG with underlying sinus rhythm at 80/Min; no significant ST-T changes and otherwise unremarkable[place] [id number], Complete Assessment & Plan Assessment & Plan (1) Paroxysmal atrial fibrillation: Code(s): I48.0 - Paroxysmal atrial fibrillation Category: Medical Plan: Stable on the current dose of Diltiazem, Flecainide and Eliquis. May continue without changes. (2) Encounter for monitoring anti-arrhythmic therapy: Code(s): Z51.81 - Encounter for therapeutic drug level monitoring; Z79.899 - Other supervisor intermediates (current) drug therapy Category: Medical Plan: On flecainide and no issues. (3) Cholesterol retinal embolus of right eye: Code(s): H34.211 - Partial retinal artery occlusion, right eye Category: Medical Plan: Possibly related to carotid disease. She follows up with vascular surgery at [facility] and she states that she has been told that everything is stable. (4) THUY (obstructive sleep apnea): Comment: Known case of obstructive sleep apnea due to moderate obesity. Being treated with CPAP, which she uses very regularly. Sleep is much better, and more than 8 hours per night. Compliance is 100%. Code(s): G47.33 - Obstructive sleep apnea (adult) (pediatric) Category: Medical Plan: Continue CPAP. (5) Bilateral carotid artery stenosis: Code(s): I65.23 - Occlusion and stenosis of bilateral carotid arteries Category: Medical Plan: Continue statins. She does not have any chest pain and no clinical suggestion of obstructive CAD. In the past, has had an exercise stress echocardiogram but unremarkable. Coding Level of Care Code Est Pt Level 4 (95224) Diagnoses Paroxysmal atrial fibrillation I48.0 Encounter for monitoring anti-arrhythmic therapy Z51.81; Z79.899 Cholesterol retinal embolus of right eye H34.211 THUY (obstructive sleep apnea) G47.33 Bilateral carotid artery stenosis I65.23 CPT Codes EKG - CPT: 17462-[id number], Complete ([id number])
== END 2024-07-09 15:06 | disposition home or self-care (01) ==
PROVIDERS: PCP Internal Medicine; Visit Provider Internal Medicine
DX: I48.0 Paroxysmal atrial fibrillation (principal); Z51.81 Encounter for therapeutic drug level monitoring; Z79.899 Other long term (current) drug therapy; H34.211 Partial retinal artery occlusion, right eye; G47.33 Obstructive sleep apnea (adult) (pediatric); I65.23 Occlusion and stenosis of bilateral carotid arteries
CPT/HCPCS: 93010; 99214

== ENCOUNTER → 2024-07-09 14:44 | Outpatient (BNVA) | payer MEDICARE, SELFPAY | PROVIDERS: PCP Internal Medicine; Visit Provider Internal Medicine | DX: I48.0 Paroxysmal atrial fibrillation (principal); I65.23 Occlusion and stenosis of bilateral carotid arteries; H34.211 Partial retinal artery occlusion, right eye; G47.33 Obstructive sleep apnea (adult) (pediatric); Z51.81 Encounter for therapeutic drug level monitoring; Z79.899 Other long term (current) drug therapy | CPT/HCPCS: 93005; 99212 ==

== ENCOUNTER 2024-10-29 13:19 | Outpatient (REF) | payer MEDICARE, SELFPAY ==
[2024-10-29 14:38] LABS: Estimated Average Glucose 166 mg/dL; Hemoglobin A1C 184.1751 umol/L; Hemoglobin A1c % 7.4 % (<6.0); Total Hemoglobin (HGBA1C) 3207.0407 umol/L
[2024-10-29 14:58] LABS: Alanine Aminotransferase 23 U/L (0-31); Albumin Level 4.1 g/dL (3.5-5.0); Alkaline Phosphatase 78 U/L (39-117); Anion Gap 12 (12-20); Aspartate Amino Transferase 23 U/L (5-31); Bilirubin Total 0.4 mg/dL (0.0-1.0); Blood Urea Nitrogen 11 mg/dL (9-16); Calcium 9.1 mg/dL (8.4-10.2); Carbon Dioxide 28 mmol/L (22-29); Chloride 103 mmol/L (96-108); Estimated Glomerular Filt Rate > 60; Glucose Random 253 mg/dL (60-115); Potassium 4.5 mmol/L (3.3-5.1); Sodium 138 mmol/L (135-145); Total Protein 7.3 g/dL (6.5-8.0)
--- OUTSIDE RECORDS SUMMARY | 2024-10-29 17:00 | XMS_ITS | Encounter Summary ---
Author Organization [facility] Address [address] [place] [address] Care Team Providers Care Duplicator Punch Set Up Operator Name Role Phone Sánchez Metzger MD Primary Care Provider [phone] Encounter Details Date Type Department Care Team (Late st Contact Info) Description 06/19/2024 Lab Requisition [facility] - Main Lab [address] [facility] [place] [phone] Kinga Velasquez PA [address] [place] [address] Benign essential microscopic hematuria Social History Tobacco [...] Scant urothelial cellularity. 07/03/2024 3:[address] [facility] Clinical Information [id number] Urine w/reflex UroVysion. 07/03/2024 3:[address] [facility] Gross Description A. Urine, Voided, : [id number] RECD 1 TP CYTO 07/03/2024 3:[address] [facility] Disclaimer Unless otherwise specified, all tissue is 10% NB formalin fixed and paraffin embedded. Technical pathology services provided by [facility] [address] [facility] [address] [place] [address] (CLIA #[id number]/S manuel Lira MD, Ethylbenzene Cracking Supervisor) 07/03/2024 3:[address] [facility] Tissue Urine specimen from urethra / Unknown 06/15/2024 06/19/2024 1:55 PM EST [facility] PATHOLOGY ORDERABLES Tracey l Result [facility] [address] [place] [address], documented in this encounter Visit Diagnoses Diagnosis Benign essential microscopic hematuria documented in this encounter Care Teams Duplicator Punch Set Up Operator Relationship Specialty Start Date End Date Sánchez Metzger MD [address] [place] PCP - General Blood Bank Credit Clerk 03/11/18 documented as of this encounter
--- OUTSIDE RECORDS SUMMARY | 2024-10-29 17:00 | XMS_ITS | Clinical Summary ---
Author Organization [address] Address [address] [place] [phone] Phone Care Team Providers Care Assurance Services Manager Health Care Name Role Phone Sánchez Metzger MD Primary Care Provider [phone] Medications insulin lispro (HumaLOG KwikPen Insulin) 100 [...] [place]OSS - [place] [id number] Care Teams Assurance Services Manager Health Care Relationship Specialty Start Date End Date Sánchez Metzger MD [address] [place] [address] [facility] Lauren [place], [place] PCP - General Chief General Pediatric [facility] 03/11/18
--- OUTSIDE RECORDS SUMMARY | 2024-10-29 17:00 | XMS_ITS | Encounter Summary ---
Author Organization [facility] Address [address] [place] [address] Care Team Providers Care Bisque Cleaner Name Role Phone Unavailable Primary Care Provider Unavailabl e Encounter Details Date Type Department Care Team (Late st Contact Info) Description 01/06/2020 Documentation [facility] IP [address] [place] [phone] Frances Sosa [address] [place] [address] Social History Tobacco Use Types [...]
--- OUTSIDE RECORDS SUMMARY | 2024-10-29 17:00 | XMS_ITS | Clinical Summary ---
Author Organization [facility] Address [address] [place] [address] Care Team Providers Care Political Director Name Role Phone Unavailable Primary Care Provider [...]
== END 2024-10-29 13:20 | disposition home or self-care (01) ==
LOC: HO.LAB 13:19
PROVIDERS: PCP Internal Medicine; Visit Provider Internal Medicine
DX: I48.0 Paroxysmal atrial fibrillation (principal); G47.33 Obstructive sleep apnea (adult) (pediatric); E11.65 Type 2 diabetes mellitus with hyperglycemia
CPT/HCPCS: 36415; 80053; 83036; 99202

== ENCOUNTER 2024-10-29 13:19 | Outpatient (AMB) | payer MEDICARE, SELFPAY ==
[2024-10-29 13:21] VITALS: BP 132/78; PULSE 87; RESP 16; TEMP 36.7; O2SAT 96; BMI 36.6
--- NOTE | 2024-10-29 13:21 | A.OFFPC_ITS ---
Vital Signs 10/29/24 13:21 Height 5 ft 5 in Weight 220 lb BMI 36.6 BP 132/78 Respiration 16 Pulse 87 Pulse Source Pulse Oximeter Temp 98.0 F Temp Source Temporal Artery Scan Pulse Oximetry (%) 96 Oxygen Delivery Method Room Air Intake Visit Reasons: Routine Safety Pin Assembling Machine Operator Required: No Accompanied by: Self / Same As Patient Allergies Sulfa (Sulfonamide Antibiotics) [SULFA (SULFONAMIDE ANTIBIOTICS)] Allergy (Intermediate, Verified 10/29/24 13:22) RASH MONSULFITES Allergy (Severe, Uncoded 10/29/24 13:22) ANAPHYLAXIS Tobacco use date assessed: 10/29/24 Fall risk assessment: No Falls in past year Last assessed Fall Risk: 10/29/24 Dental Screening Dental Screen Date: 10/29/24 Did you have a dental visit in the last 12 months?: Yes Did you have a dental problem in the last 6 months where you did not have access to dental care?: No Was dental information given to patient?: Patient has dentist HPI HPI Comments History of Present Illness Details THe patient is a 74 year old female with a past medical history atrial fibrillation, diabetes, hld, GERD, hypothyroid presenting for follow up Diabetes: On metformin 500mg twice daily. A1C 7.3. Says eye exam UTD Hypothyroid: on synthroid 100mcg daily. CV: On elquis, diltiazem, flecainide. BP stable. Follows with cardiology OAB: on myrbetriq. Mammo: says utd ROS CONSTITUTIONAL: Denies weight loss, fever and chills. HEENT: Denies changes in vision and hearing. RESPIRATORY: Denies SOB and cough. CV: Denies palpitations and CP GI: Denies abdominal pain, nausea, vomiting and diarrhea. : Denies dysuria and urinary frequency. MSK: Denies new myalgia and joint pain. SKIN: Denies rash and pruritus. NEUROLOGICAL: Denies headache PSYCHIATRIC: Denies recent changes in mood. PHYSICAL EXAM: GENERAL: Alert and oriented x 3. NAD EYES: EOMI. Anicteric. HENT: Moist mucous membranes. No scleral icterus. No cervical lymphadenopathy. LUNGS: Clear to auscultation bilaterally. CARDIOVASCULAR: Regular rate and rhythm. No murmur. No JVD. ABDOMEN: Soft, non-tender +bs EXTREMITIES: No edema. Non-tender. SKIN: No rashes or lesions. Warm. NEUROLOGIC: No focal neurological deficits. CN II-XII grossly intact PSYCHIATRIC: Cooperative. Appropriate mood and affect [facility] Medical History Obesity (BMI 30-39.9) Taste disorder Bilateral carotid artery stenosis Nocturnal hypoxemia Cholesterol retinal embolus of right eye Paroxysmal atrial fibrillation Surgical History History of colonoscopy (~03/29/17) History of section History of knee surgery Family History Father CVD (cardiovascular disease) Mother No problems noted. Social History (Updated 10/29/24 @ 13:30 by VERONICA Dockery) Housing: House Alcohol intake: never Patient Tobacco Use Status: Former Tobacco user service: No Current occupational status: retired Cognitive needs: No Hearing needs: No Vision needs: Yes (rx glasses) Questionnaire PHQ-9 Over the last 2 weeks, how often have you been bothered by any of the following problems? 1. Little interest or pleasure in doing things: not at all 2. Feeling down, depressed, or hopeless: not at all 3. Trouble falling or staying asleep, or sleeping too much: not at all 4. Feeling tired or having little energy: not at all 5. Poor appetite or overeating: not at all 6. Feeling bad about yourself - or that you are a failure or have let yourself or your family down: not at all 7. Trouble concentrating on things, such as reading the newspaper or watching television: not at all 8. Moving or speaking so slowly that other people could have noticed. Or the opposite - being so fidgety or restless that you have been moving around a lot more than usual: not at all 9. Thoughts that you would be better off or of hurting yourself in some way: not at all Total score: 0 Source: Developed by Drs. César Menjivar, Rhonda Dukes, Antonio Melgar and colleagues, with an educational yuly from [employer]. Thrive Questionnaire Date Thrive assessed: 10/29/24 I am a: Patient What is your living situation today?: I have a steady place to live Within the past 12 months, did the food you bought not last and you didn't have the money to get more?: Never true Within the past 12 months, did you worry whether your food would run out before you got money to buy more?: Never true Do you have trouble paying for medicines?: No Do you have trouble getting transportation to medical appointments?: No Do you have trouble paying your heating and electricity bill?: No Do you have trouble taking care of your child, family member or friend?: No Do you have trouble with day-to-day activities such as bathing, preparing meals, shopping, managing finances, etc.?: No Are you currently unemployed and looking for a job?: No Are you interested in more education?: No Please select the resources that you would like help with: None THRIVE Score: 0 AUDIT C Alcohol Use Questionnaire (AUDIT-C) 1. How often do you have a drink containing alcohol?: Never 3. How often do you have six or more drinks on one occasion?: Never Total Score: 0 GERDA-7 AMB Questionnaire GERDA-7 Date GERDA - 7 assessed: 10/29/24 Feeling nervous, anxious, or on edge: 0 = Not at all Not being able to stop or control worryin = Not at all Worrying too much about different things: 0 = Not at all Trouble relaxin = Not at all Being so restless that it is hard to sit still: 0 = Not at all Becoming easily annoyed or irritable: 0 = Not at all Feeling afraid as if something awful might happen: 0 = Not at all Total GERDA-7 score (0-4 normal; 5-9 mild; 10-14 moderate; 15-21 severe): 0 Source: Developed by Drs. César Menjivar, Rhonda Dukes, Antonio Melgar and colleagues, with an educational yuly from [employer]. Physical exam (Primary Care) Vital Signs: Last Vital Signs Temp 98.0 F 10/29/24 13:21 Pulse 87 10/29/24 13:21 Resp 16 10/29/24 13:21 BP 132/78 10/29/24 13:21 Pulse Ox 96 10/29/24 13:21 Oxygen Delivery Method Room Air 10/29/24 13:21 BMI result Body Mass Index 36.6 Tobacco/Smoking Status: Tobacco use Status Tobacco use date assessed 10/29/24 10/29/24 13:30 Patient Tobacco Use Status Former Tobacco user 10/29/24 13:30 PHQ-9: PHQ-9 Score PHQ-9: Total score 0 10/29/24 13:40 Thrive Assessment: Date of Thrive Assessment Date Thrive assessed 10/29/24 10/29/24 13:30 Coding Level of Care Code New Pt Level 4 (97794) Complex EM visit Add On G2211 Diagnoses Type 2 diabetes mellitus with hyperglycemia, without long-term current use of insulin E11.65 Diabetes mellitus type: type 2 Diabetes mellitus longterm insulin use: without exterminator helper termite use Diabetes mellitus complication status: with hyperglycemia THUY (obstructive sleep apnea) G47.33 Paroxysmal atrial fibrillation I48.0 Assessment & Plan Assessment & Plan (1) Diabetes: Code(s): E11.9 - Type 2 diabetes mellitus without complications Category: Medical Qualifiers: Diabetes mellitus type: type 2 Diabetes mellitus exterminator helper termite insulin use: without exterminator helper termite use Diabetes mellitus complication status: with hyperglycemia Qualified Code(s): E11.65 - Type 2 diabetes mellitus with hyperglycemia (2) THUY (obstructive sleep apnea): Comment: Known case of obstructive sleep apnea due to moderate obesity. Being treated with CPAP, which she uses very regularly. Sleep is much better, and more than 8 hours per night. Compliance is 100%. Code(s): G47.33 - Obstructive sleep apnea (adult) (pediatric) Category: Medical (3) Paroxysmal atrial fibrillation: Code(s): I48.0 - Paroxysmal atrial fibrillation Category: Medical Plan Diabetes-due for A1C. Goal < 7.5%. Eye exam UTD GERD is stable on PPI Afib, htn stable on current medications Follow up six months or sooner as needed Orders: Orders Complete Blood Count Auto Diff 6 Months E11.9 - Type 2 diabetes mellitus without complications, E66.9 - Obesity, unspecified, G47.33 - Obstructive sleep apnea (adult) (pediatric), Z13.0 - Encounter for screening for diseases of the blood and blood-forming organs and certain disorders involving the immune mechanism Comprehensive Met. Panel 6 Months E11.9 - Type 2 diabetes mellitus without complications, E66.9 - Obesity, unspecified, G47.33 - Obstructive sleep apnea (adult) (pediatric), Z13.0 - Encounter for screening for diseases of the blood and blood-forming organs and certain disorders involving the immune mechanism Hemoglobin A1c Today E11.9 - Type 2 diabetes mellitus without complications, G47.33 - Obstructive sleep apnea (adult) (pediatric), I48.0 - Paroxysmal atrial fibrillation Comprehensive Met. Panel Today E11.9 - Type 2 diabetes mellitus without complications, G47.33 - Obstructive sleep apnea (adult) (pediatric), I48.0 - Paroxysmal atrial fibrillation Hemoglobin A1c 6 Months E11.9 - Type 2 diabetes mellitus without complications, E66.9 - Obesity, unspecified, G47.33 - Obstructive sleep apnea (adult) (pediatric), Z13.0 - Encounter for screening for diseases of the blood and blood-forming organs and certain disorders involving the immune mechanism Lipid Panel 6 Months E11.9 - Type 2 diabetes mellitus without complications, E66.9 - Obesity, unspecified, G47.33 - Obstructive sleep apnea (adult) (pediatric), Z13.0 - Encounter for screening for diseases of the blood and blood-forming organs and certain disorders involving the immune mechanism
--- OUTSIDE RECORDS SUMMARY | 2024-10-29 16:17 | XMS_ITS | Clinical Summary ---
Author Organization [facility] Address [address] [place] [address] Care Team Providers Care Operations Supervisor Name Role Phone Unavailable Primary Care Provider Unavailabl e Social History Tobacco Use Types Packs/Day Years Used Date Smoking Tobacco: Never Assessed Comments Unknown Sex and Gender Information Value Date Recorded Sex Assigned at Not on file Legal Sex Female 6:34 PM EST Gender Identity Not on file Sexual Orientation Not on file Plan of Treatment Health Maintenance Due Date Last Done Comments Hepatitis C Virus Screening 1950 DTaP/Tdap/Td Vaccines (1 - Tdap) 1971 Pneumococcal Vaccines 50+ (1 of 1 - PCV) 2002 Zoster (Shingles) Vaccine (1 of 2) 2002 COVID-19 Vaccine ( - 2023-2 5 season) 2024 RSV Vaccine 60 years and old er and Patients (1 - 1-dose 75+ series) 2027 Hepatitis B Vaccines Aged Out No long er eligible based on patient's age to complete this topic
--- OUTSIDE RECORDS SUMMARY | 2024-10-29 16:17 | XMS_ITS | Encounter Summary ---
Author Organization [facility] Address [address] [place] [address] Care Team Providers Care Sql Report Writer Name Role Phone Unavailable Primary Care Provider Unavailabl e Encounter Details Date Type Department Care Team (Late st Contact Info) Description 01/06/2020 Documentation [facility] [address] [place] [phone] Frances Sosa [address] [place] [address] Social History Tobacco Use Types Packs/Day Years Used Date Smoking Tobacco: Never Assessed Comments Unknown Sex and Gender Information Value Date Recorded Sex Assigned at Not on file Legal Sex Female 6:34 PM EST Gender Identity Not on file Sexual Orientation Not on file documented as of this encounter Plan of Treatment Not on file documented as of this encounter Visit Diagnoses Not on filedocumented in this encounter
--- OUTSIDE RECORDS SUMMARY | 2024-10-29 16:17 | XMS_ITS | Clinical Summary ---
Author Organization [address] Address [address] [place] [phone] Phone Care Team Providers Care Trench Digging Machine Operator Name Role Phone Sánchez Metzger MD Primary Care Provider [phone] Medications insulin lispro (HumaLOG KwikPen Insulin) 100 unit/mL injection penIndications :diabetes mellitus,type 2 diabetes mellitus Administration per sliding scale 15 mL 11 5 026 Active Social History Tobacco Use Types Packs/Day Years Used Date Smoking Tobacco: Never Assessed Comments Unknown Sex and Gender Information Value Date Recorded Sex Assigned at Not on file Legal Sex Female 12:15 PM EST Gender Identity Not on file Sexual Orientation Not on file Plan of Treatment Health Maintenance Due Date Last Done Comments Breast Cancer Screening 1950 Diabetes: Annual GFR (Glomer ular Filtration Rate) 1952 Diabetes: Annual Foot Exam 1962 Diabetes: Annual Retina Eye Exam 1962 DTaP,Tdap,and Td Vaccines (1 - Tdap) 1971 Pneumococcal Vaccine: 50+ Ye ars (1 of 2 - PCV) 1971 Zoster Vaccines (1 of 2) 2002 RSV Immunization Adult Patie nts (1 - Risk 60-74 years 1-dose series) 2012 Cholesterol Screening (Lipid Panel) 08/13/2023 Colorectal Cancer Screening: Colonoscopy 08/13/2023 Depression Screening 08/13/2023 Falls Risk Assessment 08/13/2023 Hepatitis C Screening 08/13/2023 Medicare Annual Wellness Visit 08/13/2023 Osteoporosis Screening (Bone Density Screening) 08/13/2023 Social Influencers of Health Screening 08/13/2023 COVID-19 Vaccine (2023-2 5 season) 2024 Diabetes: Annual Urine Albumin-Creatinine Ratio (uACR) 10/03/2024 Diabetes: Blood Sugar Contro l Test (HGBA1C) 10/03/2024 Influenza Vaccine (Season Ended) 2025 HIB Vaccines Aged Out No longer eligi ble based on patient's age to complete this topic HPV Vaccines Aged Out No longer eligi ble based on patient's age to complete this topic Hepatitis A Vaccines Aged Out No long er eligible based on patient's age to complete this topic Hepatitis B Vaccines Aged Out No long er eligible based on patient's age to complete this topic IPV Vaccines Aged Out No longer eligi ble based on patient's age to complete this topic MMR Vaccines Aged Out No longer eligi ble based on patient's age to complete this topic Meningococcal ACWY Vaccine Aged Out N o longer eligible based on patient's age to complete this topic Meningococcal B Vaccine Aged Out No l onger eligible based on patient's age to complete this topic RSV Immunization Patients Un lissette 20 months Aged Out No longer eligible b ased on patient's age to complete this topic Varicella Vaccines Aged Out No longer eligible based on patient's age to complete this topic Insurance [place] - [place] MEDICARE AD[place]ANT[place] [id number] Care Teams Trench Digging Machine Operator Relationship Specialty Start Date End Date Sánchez Metzger MD [address] [place] [address] [facility] Lauren [place], [place] PCP - General Hospital Secretary 03/11/18
--- OUTSIDE RECORDS SUMMARY | 2024-10-29 16:17 | XMS_ITS | Encounter Summary ---
Author Organization [facility] Address [address] [place] [address] Care Team Providers Care Surveyor Mine Name Role Phone Sánchez Metzger MD Primary Care Provider [phone] Encounter Details Date Type Department Care Team (Late st Contact Info) Description 06/19/2024 Lab Requisition [facility] - Main Lab [address] [facility] [place] [phone] Kinga Velasquez PA [address] [place] [address] Benign essential microscopic hematuria Social History Tobacco Use Types Packs/Day Years Used Date Smoking Tobacco: Never Assessed Comments Unknown Sex and Gender Information Value Date Recorded Sex Assigned at Not on file Legal Sex Female 12:15 PM EST Gender Identity Not on file Sexual Orientation Not on file documented as of this encounter Plan of Treatment Not on file documented as of this encounter Procedures Procedure Name Priority Date/Time Associated Diagnosis Comments AP OUTSIDE CONSULT Routine 06/15/2024 12 :00 AM EST Benign essential microscopic hematuria documented in this encounter Results * Anatomic pathology outside consult (06/15/2024 12:00 AM EST) Final Diagnosis Urine, Voided: Negative for high-grade urothelial carcinoma. Scant urothelial cellularity. 07/03/2024 3:35 PM EST [facility] Clinical Information [id number] Urine w/reflex UroVysion. 07/03/2024 3:35 PM EST [facility] Gross Description A. Urine, Voided, : [id number] RECD 1 TP CYTO 07/03/2024 3:35 PM EST [facility] Disclaimer Unless otherwise specified, all tissue is 10% NB formalin fixed and paraffin embedded. Technical pathology services provided by [facility] [address] [place] [address] (CLIA #[id number]/S manuel Lira MD, Crew Boat Operator) 07/03/2024 3:35 PM EST [facility] Tissue Urine specimen from urethra / Unknown 06/15/2024 06/19/2024 1:55 PM EST [facility] PATHOLOGY ORDERABLES Tracey l Result [facility] [address] [place] [address], documented in this encounter Visit Diagnoses Diagnosis Benign essential microscopic hematuria documented in this encounter Care Teams Surveyor Mine Relationship Specialty Start Date End Date Sánchez Metzger MD [address] [facility] [place] PCP - General Watch Band Assembler 03/11/18 documented as of this encounter
== END 2024-10-29 13:51 | disposition home or self-care (01) ==
LOC: HO.HMCHD 13:19
PROVIDERS: PCP Internal Medicine; Visit Provider Internal Medicine
DX: E11.65 Type 2 diabetes mellitus with hyperglycemia (principal); G47.33 Obstructive sleep apnea (adult) (pediatric); I48.0 Paroxysmal atrial fibrillation

== ENCOUNTER 2024-12-29 10:20 | Outpatient (AMB) | payer MEDICARE, SELFPAY ==
--- NOTE | 2024-12-29 10:26 | MHC.PC.OV ---
Intake Visit Reasons: rash all over body Allergies Sulfa (Sulfonamide Antibiotics) [SULFA (SULFONAMIDE ANTIBIOTICS)] Allergy (Intermediate, Verified 10/29/24 13:22) RASH MONSULFITES Allergy (Severe, Uncoded 10/29/24 13:22) ANAPHYLAXIS Medication List - Last Reconciled 12/29/24 by TAWANNA Franco apixaban (Eliquis) 5 mg PO BID cholecalciferol (vitamin D3) 100 mcg PO DAILY diltiazem HCl CD 180 mg PO DAILY flecainide 50 mg PO Q12H levothyroxine (Synthroid) 100 mcg PO DAILY metformin ER 500 mg PO BID 90 days pantoprazole 40 mg PO DAILY prednisone 10 mg PO DIRECTED rosuvastatin (Crestor) 40 mg PO DAILY trazodone 50 mg PO BEDTIME vibegron (Gemtesa) 75 mg PO DAILY Tobacco use date assessed: 10/29/24 Dental Screening Dental Screen Date: 10/29/24 HPI HPI Comments History of Present Illness Details 74-year-old female with history of atrial fibrillation and type 2 diabetes among other presents to the office today for evaluation. She developed a rash starting on 12/14 after doing yd work pulling weeds in bushes. Several days after that she developed a vesicular rash on the left arm with significant pruritus and has been using topical steroids and taking Benadryl at home. Denies any oozing. Over this past weekend, she then presented to an urgent care for re-evaluation as the rash had spread to the right arm and bilateral lower legs. At that time, she was prescribed a triamcinolone lotion as well as hydroxyzine which has not improved her symptoms and she continues to experience spreading of the rash, now on the abdomen and back. It continues to be quite itchy. No fevers or chills. No pain. She does have history of atrial fibrillation rate controlled with diltiazem and also on flecainide for rhythm control. She is taking Eliquis for anticoagulation. She does report occasional episodes of palpitations with takes an additional dose of flecainide and diltiazem per her inside account representative and reports symptoms resolved within 1 hour. She has not needed to present to the ER for this in some time. She is also checking her glucose levels at home for monitoring of her type 2 diabetes. She is compliant with her metformin. Not always compliant with diabetic diet. ROS: General: No fevers, malaise, unintentional weight loss HEENT: No blurred vision, diplopia. No sore throat, nasal congestion, rhinorrhea, sinus pain, ear pain Cardiovascular: No chest pain, palpitations, or leg edema Respiratory: No shortness of breath, wheezing, cough MSK: No myalgia, back pain Neuro: No headaches, weakness, paresthesias Skin: see hpi EXAM: Constitutional - Awake and Alert, No apparent distress Eyes - PERRL Cardiovascular - S1S2, RRR, No edema Respiratory - Normal lung expansion, Normal respiratory effort, No respiratory distress, CTA bilaterally Extremities - no calf tenderness bilaterally, no swelling Skin - Warm/Dry. Papular erythematous rash on left forearm with several vesicles witih smaller similar lesions on the left upper arm, right forearm, bilateral thighs, abdomen, and midback Neurological - Alert & oriented x3 Psychological - Appropriate affect PFSH Medical History Obesity (BMI 30-39.9) Taste disorder Bilateral carotid artery stenosis Nocturnal hypoxemia Cholesterol retinal embolus of right eye Paroxysmal atrial fibrillation Surgical History History of colonoscopy (~03/29/17) History of section History of knee surgery Family History Father CVD (cardiovascular disease) Mother No problems noted. Social History (Updated 10/29/24 @ 13:30 by VERONICA Dockery) Housing: House Alcohol intake: never Patient Tobacco Use Status: Former Tobacco user service: No Current occupational status: retired Cognitive needs: No Hearing needs: No Vision needs: Yes (rx glasses) Questionnaire Thrive Questionnaire Date Thrive assessed: 10/29/24 GERDA-7 AMB Questionnaire GERDA-7 Date GERDA - 7 assessed: 10/29/24 Source: Developed by Drs. César Menjivar, Rhonda Dukes, Antonio Melgar and colleagues, with an educational yuly from [employer] Physical exam (Primary Care) Tobacco/Smoking Status: Tobacco use Status Tobacco use date assessed 10/29/24 12/29/24 10:27 Patient Tobacco Use Status Former Tobacco user 12/29/24 10:27 Thrive Assessment: Date of Thrive Assessment Date Thrive assessed 10/29/24 12/29/24 10:27 Coding Level of Care Code Est Pt Level 4 (47422) Diagnoses Irritant contact dermatitis due to plant L24.7 Type 2 diabetes mellitus with hyperglycemia, without long-term current use of insulin E11.65 Diabetes mellitus type: type 2 Diabetes mellitus assisted insulin use: without assisted use Diabetes mellitus complication status: with hyperglycemia Assessment & Plan Assessment & Plan (1) Irritant contact dermatitis due to plant: Code(s): L24.7 - Irritant contact dermatitis due to plants, except food Category: Medical Plan: Prednisone taper prescribed. Counseled on side effects. Can continue topicals such as calamine lotion and can keep using hydroxyzine as ordered but not within 4 hours of taking flecainide. Contact the office and no improvement. She is going to the beach in about 10 days, advised to be mindful of sun exposure while on prednisone (2) Diabetes: Code(s): E11.9 - Type 2 diabetes mellitus without complications Category: Medical Qualifiers: Diabetes mellitus type: type 2 Diabetes mellitus radiologic technologist insulin use: without radiologic technologist use Diabetes mellitus complication status: with hyperglycemia Qualified Code(s): E11.65 - Type 2 diabetes mellitus with hyperglycemia Plan: Advised to check glucose levels to monitor for hyperglycemia while taking prednisone. Continue metformin and recommend increase compliance with diabetic diet Plan Follow-up in the office as scheduled with PCP Medications: New prednisone see taper instructions 10 mg PO DIRECTED 30 tabs 0RF vibegron (Gemtesa) 75 mg PO DAILY 90 tabs 1RF
--- OUTSIDE RECORDS SUMMARY | 2024-12-29 11:50 | XMS_ITS | Encounter Summary ---
Author Organization [facility] Address [address] [place] [address] Care Team Providers Care Project Manager Name Role Phone Sánchez Metzger MD Primary Care Provider [phone] Encounter Details Date Type Department Care Team (Late st Contact Info) Description 06/19/[address] [facility] - Main Lab [address] [facility] [place] [id number] Kinga Velasquez PA [address] [place] [address] Benign essential microscopic hematuria Social History Tobacco [...] Scant urothelial cellularity. 07/03/2024 3:35 PM EST [facility] Clinical Information [id number] Urine w/reflex UroVysion. 07/03/2024 3:35 PM EST [facility] Gross Description A. Urine, Voided, : [id number] RECD 1 TP CYTO 07/03/2024 3:35 PM EST [facility] Disclaimer Unless otherwise specified, all tissue is 10% NB formalin fixed and paraffin embedded. Technical pathology services provided by [facility] [address] [place] [address] (CLIA #[id number]/S manuel Lira MD, Buttonhole Maker) 07/03/2024 3:35 PM EST [facility] Tissue Urine specimen from urethra / Unknown 06/15/2024 06/19/2024 1:55 PM EST Kinga [facility] LAB PATHOLOGY ORDERABLES Tracey l Result [facility] [address] [place] [address], documented in this encounter Visit Diagnoses Diagnosis Benign essential microscopic hematuria documented in this encounter Care Teams Project Manager Relationship Specialty Start Date End Date Sánchez Metzger MD [address] [place] PCP - General Quality Internship 03/11/18 documented as of this encounter
== END 2024-12-29 11:03 | disposition home or self-care (01) ==
LOC: HO.HMCHD 10:20
PROVIDERS: PCP Physician Assistant; Visit Provider Physician Assistant
DX: L24.7 Irritant contact dermatitis due to plants, except food (principal); E11.65 Type 2 diabetes mellitus with hyperglycemia

== ENCOUNTER → 2024-12-29 10:20 | Outpatient (BNVA) | payer MEDICARE, SELFPAY | PROVIDERS: PCP Physician Assistant; Visit Provider Physician Assistant | DX: R21 Rash and other nonspecific skin eruption (principal); L24.7 Irritant contact dermatitis due to plants, except food; E11.65 Type 2 diabetes mellitus with hyperglycemia | CPT/HCPCS: 99212 ==

== ENCOUNTER 2025-01-05 10:54 | Outpatient (AMB) | payer MEDICARE, SELFPAY ==
--- NOTE | 2025-01-05 10:56 | A.OFFPC_ITS ---
Vital Signs 01/05/25 10:59 Height 5 ft 5 in Weight 96.615 kg BMI 35.4 BP 150/80 H Respiration 16 Pulse 75 Pulse Source Pulse Oximeter Temp 97.0 F Temp Source Temporal Artery Scan Pulse Oximetry (%) 97 Oxygen Delivery Method Room Air Intake Visit Reasons: F/U on Rash Tour Coordinator Required: No Accompanied by: Self / Same As Patient Allergies Sulfa (Sulfonamide Antibiotics) (SULFA (SULFONAMIDE ANTIBIOTICS)) Allergy (Intermediate, Verified 01/05/25 10:56) RASH MONSULFITES Allergy (Severe, Uncoded 01/05/25 10:56) ANAPHYLAXIS Tobacco use date assessed: 10/29/24 Dental Screening Dental Screen Date: 10/29/24 HPI HPI Comments History of Present Illness Details 74-year-old female with history of atria l fibrillation and type 2 diabetes among other presents to the office today to follow-up on a rash. She developed a rash starting on 12/14 after doing yd work pulling weeds in bushes. Several days after that she developed a vesicular rash on the left arm with significant pruritus and has been using topical steroids and taking Benadryl at home. Denies any oozing. She had presented to an urgent care for re-evaluation as the rash had spread to the right arm and bilateral lower legs. At that time, she was prescribed a triamcinolone lotion as well as hydroxyzine which had not improved her symptoms. About 1 week ago, she presented to our office for further evaluation. She had still been experiencing symptoms of increasing rash with vesicular lesions and erythematous patches on the upper extremities, thighs, abdomen and back. She was prescribed a prednisone taper which she has been taking as prescribed and is also using Benadryl to help her sleep at night. The rash is very itchy the Benadryl does help. She has new excoriations on the right forearm as a result. The vesicles have dissipated but she is still experiencing new patches of erythema. She does report that she does have a sensitivity to [place] bushes in his uncertain if she came in contact with this. History of sensitivity to tomatoes and oranges as a child, but no ongoing symptoms into adulthood. Allergic to sulfa drugs but has not taken these. No other known allergies or new exposures. As a result of the prednisone, glucose levels have been high so she has increased metformin to 1000mg daily and improved diabetic diet. She is also down 3 pounds. Glucose levels have been in the 200s with increased metformin despite steroid use. BP also elevated in the office today despite compliance with antihypertensives, likely 2/2 prednisone. ROS: General: No fevers, malaise, unintentional weight loss Skin: see hpi EXAM: Constitutional - Awake and Alert, No apparent distress Eyes - PERRL Skin - Warm/Dry. faintly erythematous patches on the upper extremities bilaterally, largest on the left forearm with several papular lesions within the patch. Blanchable. No warmth or iinduration. No vesicles noted. Smaller erythematous macules on the upper extremities, tights, abd, and new lesion on right upper trap. Neurological - Alert & oriented x3 Psychological - Appropriate affect [facility] Medical History (Updated 01/05/25 @ 11:32 by TAWANNA Franco) HTN (hypertension) Obesity (BMI 30-39.9) Taste disorder Bilateral carotid artery stenosis Nocturnal hypoxemia Cholesterol retinal embolus of right eye Paroxysmal atrial fibrillation Surgical History History of colonoscopy (~03/29/17) History of section History of knee surgery Family History Father CVD (cardiovascular disease) Mother No problems noted. Social History (Updated 10/29/24 @ 13:30 by VERONICA Dockery) Housing: House Alcohol intake: never Patient Tobacco Use Status: Former Tobacco user service: No Current occupational status: retired Cognitive needs: No Hearing needs: No Vision needs: Yes (rx glasses) Questionnaire Thrive Questionnaire Date Thrive assessed: 10/29/24 GERAD-7 AMB Questionnaire GERDA-7 Date GERDA - 7 assessed: 10/29/24 Source: Developed by Drs. César Menjivar, Rhonda Dukes, Antonio Melgar and colleagues, with an educational yuly from [email or web address]. Physical exam (Primary Care) Vital Signs: Last Vital Signs Temp 97.0 F 01/05/25 10:59 Pulse 75 01/05/25 10:59 Resp 16 01/05/25 10:59 BP 150/80 H 01/05/25 10:59 Pulse Ox 97 01/05/25 10:59 Oxygen Delivery Method Room Air 01/05/25 10:59 BMI result Body Mass Index 35.4 Tobacco/Smoking Status: Tobacco use Status Tobacco use date assessed 10/29/24 01/05/25 11:02 Patient Tobacco Use Status Former Tobacco user 01/05/25 11:02 Thrive Assessment: Date of Thrive Assessment Date Thrive assessed 10/29/24 01/05/25 11:02 Coding Level of Care Code Est Pt Level 4 (84308) Complex EM visit Add On G2211 Diagnoses Irritant contact dermatitis due to plant L24.7 Type 2 diabetes mellitus with hyperglycemia, without long-term current use of insulin E11.65 Diabetes mellitus type: type 2 Diabetes mellitus rn long term care insulin use: without rn long term care use Diabetes mellitus complication status: with hyperglycemia HTN (hypertension) I10 Obesity (BMI 30-39.9) E66.9 Assessment & Plan Assessment & Plan (1) Irritant contact dermatitis due to plant: Code(s): L24.7 - Irritant contact dermatitis due to plants, except food Category: Medical Plan: Improving. Continue with prednisone taper. However, she is still getting new lesions. Recommend adding topical steroid as needed for rash. Hydroxyzine as needed for pruritus. Monitor glucose levels given systemic steroid use. If still not resolving, contact the office for dermatology referral or contact [facility] where she already follows for appointment (2) Diabetes: Code(s): E11.9 - Type 2 diabetes mellitus without complications Category: Medical Qualifiers: Diabetes mellitus type: type 2 Diabetes mellitus retirement insulin use: without retirement use Diabetes mellitus complication status: with hyperglycemia Qualified Code(s): E11.65 - Type 2 diabetes mellitus with hyperglycemia Plan: Age-appropriate control with A1c of 7.4%. However, she would like to continue with metformin 1000 mg daily, recent increased due to systemic steroid use. Co ntinue with improved diabetic diet. Continue with annual eye exams and foot exams. (3) HTN (hypertension): Code(s): I10 - Essential (primary) hypertension Category: Medical Plan: Elevated likely secondary to systemic steroid use. Continue diltiazem. Monitor blood pressures at home. (4) Obesity (BMI 30-39.9): Comment: Patient is moderately obese, TRIES TO WATCH HER DIET AND REMAINS PHYSICALLY ACTIVE. WEIGHT HIS BASICALLY UNCHANGED. Code(s): E66.9 - Obesity, unspecified Category: Medical Plan: Commended on weight loss efforts and recent weight loss which is reassuring given she is also on systemic steroid. Continue with healthy, diabetic diet and regular exercise. Plan Follow-up in the office as scheduled. Last be completed several days prior to visit Medications: New triamcinolone acetonide 0.5% 1 appl topical DAILY PRN 15 grams 0RF rash hydralazine 25 mg PO TID PRN 60 tabs 0RF itching
[2025-01-05 10:59] VITALS: BP 150/80; PULSE 75; RESP 16; TEMP 36.1; O2SAT 97; BMI 35.4
--- OUTSIDE RECORDS SUMMARY | 2025-01-05 12:25 | XMS_ITS | Encounter Summary ---
Author Organization [facility] Address [address] [place] [address] Care Team Providers Care Membership Assistant Name Role Phone Sánchez Metzger MD Primary Care Provider Encounter Details Date Type Department Care Team (Late st Contact Info) Description 06/19/2024 Lab Requisition [facility] - Main Lab [address] [facility] [place] [id number] Kinga Velasquez PA [address] [place] [address] Benign essential microscopic hematuria Social History Tobacco [...] Scant urothelial cellularity. 07/03/2024 3:35 PM EST [facility] Clinical Information [id number] Urine w/reflex UroVysion. 07/03/2024 3:35 PM EST [facility] Gross Description A. Urine, Voided, : [id number] RECD 1 TP CYTO 07/03/2024 3:35 PM EST [facility] Disclaimer Unless otherwise specified, all tissue is 10% NB formalin fixed and paraffin embedded. Technical pathology services provided by [facility] [address] [place] [address] (CLIA #[id number]/S manuel Lira MD, Store Protection Specialist) 07/03/2024 3:35 PM EST [facility] Tissue Urine specimen from urethra / Unknown 06/15/2024 06/19/2024 1:55 PM EST Kinga [facility] LAB PATHOLOGY ORDERABLES Tracey l Result [facility] [address] [place] [address], documented in this encounter Visit Diagnoses Diagnosis Benign essential microscopic hematuria documented in this encounter Care Teams Membership Assistant Relationship Specialty Start Date End Date Sánchez Metzger MD [address] [place] PCP - General Dialysis Registered Nurse 03/11/18 documented as of this encounter
== END 2025-01-05 11:23 | disposition home or self-care (01) ==
LOC: HO.HMCHD 10:55
PROVIDERS: PCP Physician Assistant; Visit Provider Physician Assistant
DX: L24.7 Irritant contact dermatitis due to plants, except food (principal); E11.65 Type 2 diabetes mellitus with hyperglycemia; I10 Essential (primary) hypertension; E66.9 Obesity, unspecified

== ENCOUNTER → 2025-01-05 10:54 | Outpatient (BNVA) | payer MEDICARE, SELFPAY | PROVIDERS: PCP Physician Assistant; Visit Provider Physician Assistant | DX: L24.7 Irritant contact dermatitis due to plants, except food (principal); E11.65 Type 2 diabetes mellitus with hyperglycemia; I10 Essential (primary) hypertension; E66.9 Obesity, unspecified | CPT/HCPCS: 99212 ==

== ENCOUNTER 2025-03-18 10:21 | Emergency (ER) | payer MEDICARE, SELFPAY ==
--- NOTE | ~2025-03-18 | CT_ITS ---
EXAMINATION: CT HEAD WITHOUT CONTRAST CLINICAL INFORMATION: right sided headache, left eye visual disturbances COMPARISON: None available. TECHNIQUE: Contiguous axial imaging was performed from the skull base to vertex without intravenous administration of contrast. This CT examination was performed using dose optimization techniques as appropriate, variously including the following: *Automated exposure control *Adjustment of mA and/or kV according to patient size (this includes techniques or standardized protocols for targeted exams where dose is matched to indication/reason for exam; i.e. extremities or head) *Use of iterative reconstruction technique DLP: 603 mGy-cm FINDINGS: No acute intracranial hemorrhage, mass effect, midline shift, hydrocephalus or herniation. Pepper-white matter differentiation is normal. Bilateral multifocal patchy subcortical deep white hypodensities involving centrum semiovale and reina radiata. Posterior cranial fossa contents demonstrated no acute hemorrhage or gross mass effect. Normal position of the cerebellar tonsils. Calcified plaques in the cavernous supraclinoid segments and petrous segments of the ICAs. Sellar/suprasellar region demonstrated no gross masses. No air-fluid levels in the paranasal sinuses. Tympanic cavities and mastoid cells are aerated. No gross masses or hematoma is in the intraconal or extraconal compartments of the orbits. The eyeballs are intact. CT/CT head/brain wo IV con IMPRESSION: No acute intracranial hemorrhage. White matter disease likely related to small vessel occlusive disease. Atherosclerosis disease, intracranial. Electronically signed by: Casey Benitez MD 03/18/2025 11:48 AM EDT
[2025-03-18 11:20] VITALS: BP 177/86; PULSE 87; RESP 18; TEMP 37; O2SAT 99; BMI 32.2
--- NOTE | 2025-03-18 11:20 | ED_ITS ---
HPI - General Adult General Chief complaint: Headache Stated complaint: migraine Time Seen by Provider: 03/18/25 15:41 Source: patient, family and old records reviewed Mode of arrival: ambulatory Limitations: no limitations History of Present Illness ED Provider: JUAN LOWE narrative: 74 yo female with PMH of afib on eliquis, HTN, renal colic, HLD, THUY, she has hx of ocular migraines and has symptoms of floaters, lines, sometimes word expression. She normally gets them and they go away with tylenol she has had these for years. She now states she started Saturday AM with symptoms in the m iddle of the night typical of her migraine. It went away then came back later Saturday. She notes no recent trauma, stress, chiropractor issue. She notes she has had many bouts of this since then which is what is unusual for her. She has not had this many episodes of her typical ocular symptom this close together. Her pain is no different it is just unusual to have symptoms for this long. complaint: ocular migraine Onset (ago): day(s) (Saturday) Location: head Radiation: non-radiation Severity: moderate Quality: aching Pain Consistency: intermittent Relieving factors: none Exacerbating factors: none Associated symptoms: nausea/vomiting and other Treatments prior to arrival: none Related Data Home Medications ?Medication ?Instructions ?Recorded ?Confirmed cholecalciferol (vitamin D3) 100 100 mcg PO DAILY 03/0401/05/25 mcg (4,000 unit) capsule levothyroxine 100 mcg tablet 100 mcg PO DAILY 08/22/20 01/05/25 (Synthroid) pantoprazole 40 mg tablet,delayed 40 mg PO DAILY 08/0301/05/25 release Previous Rx's ?Medication ?Instructions ?Recorded apixaban 5 mg tablet (Eliquis) 5 mg PO BID #180 tabs 0 03/17/24 rosuvastatin 40 mg tablet (Crestor) 40 mg PO DAILY #90 tabs 03/17/24 flecainide 50 mg tablet 50 mg PO Q12H #180 tabs 09/07 trazodone 50 mg tablet 50 mg PO BEDTIME #90 tabs diltiazem HCl 180 mg 180 mg PO DAILY #90 caps capsule,extended release 24 hr prednisone 10 mg tablet 10 mg PO DIRECTED #30 tab s 12/29/24 vibegron 75 mg tablet (Gemtesa) 75 mg PO DAILY #90 tab s 12/29/24 hydroxyzine HCl 25 mg tablet 25 mg PO TID PRN itching #30 tabs 01/05/25 metformin 500 mg tablet,extended 1,000 mg (2 x 500 mg) PO BID 90 01/05/25 release 24 hr days #360 tabs triamcinolone acetonide 0.5 % 1 appl topical DAILY PRN rash #15 01/05/25 topical cream grams Allergies Allergy/AdvReac Type Severity Reaction Status Date / Time Sulfa (Sulfonamide Allergy Intermediate RASH Verified 03/18/25 11:20 Antibiotics) (SULFA (SULFONAMIDE ANTIBIOTICS)) MONSULFITES Allergy Severe ANAPHYLAXIS Uncoded 03/18/25 11:20 Review of Systems Review of Systems: Constitutional : No Fever, No Chills, No Fatigue ENT/Mouth : No sore throat, No Rhinorrhea Eyes: No Eye Pain, No Swelling, No Redness Cardiovascular : No Chest Pain, No SOB, No Dyspnea on Exertion Respiratory : No Cough, No Sputum Gastrointestinal : pos Nausea, No Vomiting, No Diarrhea, No abdominal Pain Genitourinary : No Dysuria, No Urinary Frequency, No Hematuria, Musculoskeletal : No joint pain, No Myalgias, No Joint Swelling Skin : No Skin Lesions, No rash Neuro : No Weakness, No Numbness, No Dizziness, positive Headache All other systems reviewed and are negative [facility] Past Medical History Attestation statement: The following information was validated with the patient. Source: old records reviewed Medical History HTN (hypertension) Obesity (BMI 30-39.9) Taste disorder Bilateral carotid artery stenosis Nocturnal hypoxemia Cholesterol retinal embolus of right eye Paroxysmal atrial fibrillation Surgical History History of colonoscopy (~03/29/17) History of section History of knee surgery Family History Family History Father CVD (cardiovascular disease) Mother No problems noted. Social History Social History Housing: House Alcohol intake: never Patient Tobacco Use Status: Former Tobacco user Smoked in Last 30 Days: No Use of substances other than those prescribed or required for medical reasons: No Advance Directives: No Advance Directives Information Provided: Yes service: No Current occupational status: retired Cognitive needs: No Hearing needs: No Vision needs: Yes (rx glasses) Physical Exam ED Vital Signs: Vital Signs - 24 hr 03/18/25 11:20 03/18/25 12:26 03/18/25 14:08 Temperature 98.6 F 98.1 F 98.2 F Pulse Rate 87 91 71 Respiratory Rate 18 16 16 Blood Pressure 177/86 H 156/79 H 148/60 H Pulse Oximetry 99 96 98 Oxygen Delivery Method Room Air Room Air Room Air 03/18/25 16:04 Temperature 97.8 F Pulse Rate 67 Respiratory Rate 16 Blood Pressure 152/65 H Pulse Oximetry 99 Oxygen Delivery Method Room Air BMI result Body Mass Index 32.2 Appearance: Alert. Oriented X3. No acute distress. Eyes: Pupils equal, round and reactive to light. ENT: Pharynx normal. Neck: Normal inspection. Neck supple. no meningeal signs CVS: Normal heart rate and rhythm. Pulses normal. Respiratory: No respiratory distress. Breath sounds normal. Abdomen: Soft and nontender. Skin: Skin warm and dry. Normal skin color. Normal skin turgor. Extremities: No lower extremity edema. No calf ttp Neuro: Oriented X 3. No motor deficit. No sensory deficit. CN2-12 intact NIH Stroke Scale Internal: Initial- Upon Arrival Level of Consciousness: Alert Level of Consciousness Questions: Answers both questions correctly Level of Consciousness Commands: Performs both tasks correctly Best Gaze: Normal Visual: No visual loss Facial Palsy: Normal Motor Arm (Right): No drift Motor Arm (Left): No drift Motor Leg (Right): No drift Motor Leg (Left): No drift Limb Ataxia: Absent Sensory: Normal Best Language: No aphasia Dysarthia: Normal Extinction and Inattention: No abnormality Score: 0 Course Course Course Narrative: This is a rapid medical exam performed by Shefali Vaughn NP: Additional HPI, ROS, PE not included below will be deferred to primary provider. Patient is a 74-year-old female with history of ocular migraines, borderline HTN, not on antihypertensives, checks BP at home, presenting to the ED with complaint of left sided visual changes and right sided headache since Bhavik morning. States typically has sparkling visual disturbances but this time has been like looking through a veil with ripples which she has never had before. BP 177/86 in triage. Plan: visual acuity, CT head Medications Administered Discontinued Medications Generic Name Dose Route Start Last Admin Trade Name Rosio PRN Reason Stop Dose Admin Acetaminophen 1,000 mg in 100 mls @ 400 mls/hr 03/18/25 16:24 03/18/25 17:14 Ofirmev IV 03/18/25 16:38 Infused ONCE ONE Infusion Metoclopramide HCl 5 mg 03/18/25 16:24 03/18/25 16:59 Metoclopramide Hcl 10 Mg/2 Ml Vial IVPUSH 03/18/25 16:25 5 mg ONCE ONE Administration Medical Decision Making Medical Decision Making [facility] Narrative: 74 yo female with PMH of afib on eliquis, HTN, renal colic, HLD, THUY, here with typical features of her ocular migraine but what is different is that it has pe rsisted since Saturday normally it goes away. On exam no infectious symptoms and no meningeal signs. She is otherwise well appearing and is neuro intact. She has been taking her eliquis - her symptoms seem atypical for bleed, seizures, stroke and her NIH on my exam is 0 Differential Diagnosis Differential Diagnoses: The differential diagnosis associated with the presentation includes migraine, ocular migraine no change in mentation during episodes and typical of her prior migraines doubt seizures no severe headache to suggest SAH could have small IPH Admission/Observation Consideration of admission/observation: Escalation of care including admission/observation considered feels much better stable for DC Lab Data [facility] Lab Attestation statement: I reviewed the patient's lab results. Independent Interpretation I performed an independent interpretation of an: CT Scan (no ICH) Radiology Impression Discussion of test interpretation with radiology: I have reviewed the radiologist's reading. Independent Historian Clinical information obtained from an independent historian. History obtained from or confirmed by: Spouse External Record Review External record reviewed: Outpatient record and Prior outpatient labs Discharge Plan Discharge Clinical Impression: Ocular migraine Patient Disposition: Home, Self-Care Instructions: Ocular Migraine (ED) Additional Instructions: your CT scan was normal though there was some signs of vessel narrowing this is likely due to age and you are on eliquis already I would advise getting carotid studies with your primary care doctor return for any other worsening symptoms or concerns please stay with responsible adult for next 24 hours Prescriptions: No Action Eliquis 5 mg tablet 5 mg PO BID Qty: 180 3RF rosuvastatin [Crestor] 40 mg tablet 40 mg PO DAILY Qty: 90 3RF flecainide 50 mg tablet 50 mg PO Q12H Qty: 180 2RF trazodone 50 mg tablet 50 mg PO BEDTIME Qty: 90 1RF diltiazem HCl 180 mg capsule,extended release 24hr 180 mg PO DAILY Qty: 90 3RF prednisone 10 mg tablet 10 mg PO DIRECTED Qty: 30 0RF Rx Instructions: see taper instructions; 40 mg Daily x3 days, 30 mg daily x3 days, 20 mg daily x3 days, 10 mg daily x3 days hydroxyzine HCl 25 mg tablet 25 mg PO TID PRN (Reason: itching) Qty: 30 0RF levothyroxine [Synthroid] 100 mcg tablet 100 mcg PO DAILY cholecalciferol (vitamin D3) 100 mcg (4,000 unit) capsule 100 mcg PO DAILY pantoprazole 40 mg tablet,delayed release (DR/EC) 40 mg PO DAILY Gemtesa 75 mg tablet 75 mg PO DAILY Qty: 90 1RF triamcinolone acetonide 0.5 % cream 1 appl topical DAILY PRN (Reason: rash) Qty: 15 0RF metformin 500 mg tablet extended release 24 hr 1,000 mg PO BID 90 Days Qty: 360 1RF Print Language: Amharic
[2025-03-18 12:26] VITALS: BP 156/79; PULSE 91; RESP 16; TEMP 36.7; O2SAT 96
--- OUTSIDE RECORDS SUMMARY | 2025-03-18 13:54 | XMS_ITS | Encounter Summary ---
Author Organization [facility] Address [address] [place] [address] Care Team Providers Care Keno Attendant Name Role Phone Unavailable Primary Care Provider Unavailabl e Encounter Details Date Type Department Care Team (Late st Contact Info) Description 01/06/2020 Documentation [facility] IP [address] [place] [id number] Frances Sosa [address] [place] [address] Social History Tobacco Use Types [...]
--- OUTSIDE RECORDS SUMMARY | 2025-03-18 13:54 | XMS_ITS | Clinical Summary ---
Author Organization [facility] Address [address] [place] [address] Care Team Providers Care Vat House Supervisor Name Role Phone Unavailable Primary Care [...]
--- OUTSIDE RECORDS SUMMARY | 2025-03-18 13:54 | XMS_ITS | Encounter Summary ---
Author Organization [facility] Address [address] [place] [address] Care Team Providers Care Patient Account Liaison Name Role Phone Sánchez Metzger MD Primary Care Provider Encounter Details Date Type Department Care Team (Late st Contact Info) Description 06/19/2024 Lab Requisition [facility] - Main Lab [address] [facility] [place] [id number] Kinga Velasquez PA [address] [place] [address] Benign essential microscopic hematuria Social History Tobacco [...] Scant urothelial cellularity. 07/03/2024 3:35 PM EST [facility] Clinical Information [id number] Urine w/reflex UroVysion. 07/03/2024 3:35 PM EST [facility] Gross Description A. Urine, Voided, : [id number] RECD 1 TP CYTO 07/03/2024 3:35 PM EST [facility] Disclaimer Unless otherwise specified, all tissue is 10% NB formalin fixed and paraffin embedded. Technical pathology services provided by [facility] [address] [place] [address] (CLIA #[id number] manuel Lira MD, Billing Machine Operator) 07/03/2024 3:35 PM EST [facility] Tissue Urine specimen from urethra / Unknown 06/15/2024 06/19/2024 1:55 PM EST Kinga STACY LAB PATHOLOGY ORDERABLES Tracey l Result [facility] [address] [place] [address], documented in this encounter Visit Diagnoses Diagnosis Benign essential microscopic hematuria documented in this encounter Care Teams Patient Account Liaison Relationship Specialty Start Date End Date Sánchez Metzger MD [address] [place] PCP - General Net Finisher 03/11/18 documented as of this encounter
--- OUTSIDE RECORDS SUMMARY | 2025-03-18 13:54 | XMS_ITS | Clinical Summary ---
Author Organization [address] Address [address] [place] [address] Phone Care Team Providers Care Cosmetic Chemist Name Role Phone Sánchez Metzger MD Primary Care Provider [phone] Medications insulin lispro (HumaLOG KwikPen Insulin) 100 [...] Last Done Comments Breast Cancer Screening 1950 DTaP,Tdap,and Td Vaccines (1 - Tdap) 1971 Pneumococcal Vaccine: 50+ Ye ars (1 of 2 - PCV) 1971 Zoster Vaccines (1 of 2) 2002 Colorectal Cancer Screening: Colonoscopy 08/13/2023 Falls Risk Assessment 08/13/2023 Hepatitis C Screening 08/13/2023 Medicare Annual Wellness Visit 08/13/2023 Osteoporosis Screening (Bone Density Screening) 08/13/2023 Social Influencers of Health Screening 08/13/2023 COVID-19 Vaccine ( - 2023-2 5 season) 2024 Depression Screening 07/15/2024 Influenza Vaccine (#1) 2025 RSV Immunization Adult Patie nts (1 - 1-dose 75+ series) 2027 HIB Vaccines Aged Out No longer eligi [...] [place] TAWANNA RABAGO [id number] Care Teams Cosmetic Chemist Relationship Specialty Start Date End Date Sánchez Metzger MD [address] [place] [address] [facility] [place], [place] PCP - General Staking Press Operator 03/11/18
[2025-03-18 14:08] VITALS: BP 148/60; PULSE 71; RESP 16; TEMP 36.8; O2SAT 98
[2025-03-18 16:04] VITALS: BP 152/65; PULSE 67; RESP 16; TEMP 36.6; O2SAT 99
[2025-03-18 17:57] VITALS: BP 152/65; PULSE 67; RESP 16; TEMP 36.6; O2SAT 99
== END 2025-03-18 17:59 | disposition home or self-care (01) ==
PROVIDERS: Emergency Provider Emergency Medicine; PCP Physician Assistant
DX: G43.919 Migraine, unspecified, intractable, without status migrainosus (principal); I48.91 Unspecified atrial fibrillation; I10 Essential (primary) hypertension; Z79.01 Long term (current) use of anticoagulants; Z79.899 Other long term (current) drug therapy; Z87.891 Personal history of nicotine dependence
CPT/HCPCS: 70450; 96374; 96375; 99284; J0131; J2765

== ENCOUNTER → 2025-03-18 11:24 | Outpatient (BNV) | payer MEDICARE, SELFPAY | PROVIDERS: PCP Physician Assistant; Visit Provider Radiology Diagnostic Radiology | DX: R51.9 Headache, unspecified (principal) | CPT/HCPCS: 70450 ==

== ENCOUNTER 2025-03-22 13:18 | Outpatient (AMB) | payer MEDICARE, SELFPAY ==
--- NOTE | 2025-03-22 13:21 | A.OFFPC_ITS ---
Vital Signs 03/22/25 13:36 Height 5 ft 5.5 in Weight 95.708 kg BMI 34.6 BP 124/60 Respiration 16 Pulse 79 Pulse Source Pulse Oximeter Temp 97.4 F Temp Source Temporal Artery Scan Pulse Oximetry (%) 98 Oxygen Delivery Method Room Air Intake Visit Reasons: 6 Month F/U - see comments Event Decorator And Designer Required: No Accompanied by: Self / Same As Patient Allergies Sulfa (Sulfonamide Antibiotics) (SULFA (SULFONAMIDE ANTIBIOTICS)) Allergy (Intermediate, Verified 03/22/25 13:21) RASH MONSULFITES Allergy (Severe, Uncoded 03/22/25 13:21) ANAPHYLAXIS Medication List - Last Reconciled 03/22/25 by TAWANNA Franco apixaban (Eliquis) 5 mg PO BID cholecalciferol (vitamin D3) 100 mcg PO DAILY diltiazem HCl CD 180 mg PO DAILY doxycycline hyclate 100 mg PO BID flecainide 50 mg PO Q12H levothyroxine (Synthroid) 100 mcg PO DAILY metformin ER 1,000 mg (2 x 500 mg) PO BID 90 days pantoprazole 40 mg PO DAILY rosuvastatin (Crestor) 40 mg PO DAILY sertraline 50 mg PO DAILY triamcinolone acetonide 0.5% 1 appl topical DAILY PRN vibegron (Gemtesa) 75 mg PO DAILY Tobacco use date assessed: 10/29/24 Dental Screening Dental Screen Date: 10/29/24 HPI HPI Comments History of Present Illness Details 74-year-old female with history of parox ysmal atrial fibrillation, THUY, type 2 diabetes, hypertension, hyperlipidemia, obesity presented to the office today for management of chronic conditions/follow-up. Paroxysmal atrial fibrillation/HTN/hyperlipidemia-follows with [facility]. Anticoagulated with Eliquis. On flecainide. On diltiazem for rate control. On Crestor. Blood pressure in the office today 124/60. Cardiac ablation scheduled for 05/19 Type 2 diabetes-last hemoglobin A1c 7.4%. Due for updated A1c. On metformin 1000 mg twice daily ER. Due for urine microalbumin screen GERD-on pantoprazole Hypothyroidism-on levothyroxine Concerns: ED visit- ocular migraines. Advised by ophtho to present. Has hisotry but much more frequent. Head CT negative for acute event. Has ophtho scheduled for tomorrow Depression/anxiety- started on trazodone after sisters . But stopped this as was feeling better. Now Sleeping OK, but a lot of anxiety. Worries about everything. No panic, just generalized. No depression. Questions if this is causing her migraines. NO si/hi Health maintenance: Last mammogram 06/07, 1 year follow-up advised. Negative for malignancy Last colonoscopy 03/2017, 10 year follow-up advised. Dr. Mathias Due for DEXA scan ROS: General: No fevers, malaise, unintentional weight loss HEENT: No sore throat, nasal congestion, rhinorrhea, sinus pain, ear pain Cardiovascular: No chest pain, palpitations, or leg edema Respiratory: No shortness of breath, wheezing, cough GI: No abdominal pain, nausea, vomiting, diarrhea, constipation, melena, hematochezia : No dysuria, hematuria, increased urinary frequency, decreased urinary output MSK: No myalgia, back pain Neuro: see hpi Skin: No rashes or lesions EXAM: Constitutional - Awake and Alert, No apparent distress Eyes - PERRL Cardiovascular - S1S2, RRR, No edema Respiratory - Normal lung expansion, Normal respiratory effort, No respiratory distress, CTA bilaterally Extremities - no calf tenderness bilaterally, no swelling Skin - Warm/Dry Neurological - Alert & oriented x3 Psychological - Appropriate affect [facility] Medical History (Updated 03/22/25 @ 14:04 by TAWANNA Franco) Anxiety Seborrheic keratoses Pulsatile tinnitus HTN (hypertension) Obesity (BMI 30-39.9) Taste disorder Bilateral carotid artery stenosis Nocturnal hypoxemia Cholesterol retinal embolus of right eye Paroxysmal atrial fibrillation Surgical History History of colonoscopy (~03/29/17) History of section History of knee surgery Family History Father CVD (cardiovascular disease) Mother No problems noted. Social History Housing: House Alcohol intake: never Patient Tobacco Use Status: Former Tobacco user service: No Current occupational status: retired Cognitive needs: No Hearing needs: No Vision needs: Yes (rx glasses) Questionnaire Thrive Questionnaire Date Thrive assessed: 10/29/24 GERDA-7 AMB Questionnaire GERDA-7 Date GERDA - 7 assessed: 10/29/24 Source: Developed by DrsMckenzie Menjivar, Rhonda Dukes, Antonio Melgar and colleagues, with an educational yuly from [employer]. Physical exam (Primary Care) Vital Signs: Last Vital Signs Temp 97.4 F 03/22/25 13:36 Pulse 79 03/22/25 13:36 Resp 16 03/22/25 13:36 BP 124/60 03/22/25 13:36 Pulse Ox 98 03/22/25 13:36 Oxygen Delivery Method Room Air 03/22/25 13:36 BMI result Body Mass Index 34.6 Tobacco/Smoking Status: Tobacco use Status Tobacco use date assessed 10/29/24 03/22/25 13:22 Patient Tobacco Use Status Former Tobacco user 03/22/25 13:22 Thrive Assessment: Date of Thrive Assessment Date Thrive assessed 10/29/24 03/22/25 13:22 Coding Level of Care Code Est Pt Level 4 (43851) Complex EM visit Add On G2211 Diagnoses HTN (hypertension) I10 Paroxysmal atrial fibrillation I48.0 Anxiety F41.9 Type 2 diabetes mellitus with hyperglycemia, without long-term current use of insulin E11.65 Diabetes mellitus type: type 2 Diabetes mellitus retirement insulin use: without retirement use Diabetes mellitus complication status: with hyperglycemia Assessment & Plan Assessment & Plan (1) HTN (hypertension): Code(s): I10 - Essential (primary) hypertension Category: Medical Plan: Controlled. Continue diltiazem (2) Paroxysmal atrial fibrillation: Code(s): I48.0 - Paroxysmal atrial fibrillation Category: Medical Plan: Rate controlled, sinus rhythm in the office today. Continue Eliquis for anticoagulation, flecainide, diltiazem. Reviewed last Cardiology note. Continue following with Cardiology and present for cardiac ablation on 05/19 at [facility] as scheduled (3) Anxiety: Code(s): F41.9 - Anxiety disorder, unspecified Category: Medical Plan: Generalized. She would like to continue working on coping mechanisms to help manage symptoms but is agreeable to trialing sertraline should symptoms persist. Sertraline prescribed, counseled on side effects including black box warning (4) Diabetes: Code(s): E11.9 - Type 2 diabetes mellitus without complications Category: Medical Qualifiers: Diabetes mellitus type: type 2 Diabetes mellitus retirement insulin use: without retirement use Diabetes mellitus complication status: with hyperglycemia Qualified Code(s): E11.65 - Type 2 diabetes mellitus with hyperglycemia Plan: Previously controlled. Hemoglobin A1c ordered. Continue metformin and diabetic diet. Congratulated him recent weight loss. Microalbumin urine ordered. Continue following with ophthalmology for eye exams. Plan Follow-up in the office in 6 months. Labs to be completed as below. Five day course doxycycline prescribed patient given upcoming travel. Unable to provide azithromycin due to risk of QT prolongation Orders: Orders Basic Metabolic Panel Today E11.65 - Type 2 diabetes mellitus with hyperglycemia, I10 - Essential (primary) hypertension, I48.0 - Paroxysmal atrial fibrillation Lipid Panel Today E11.65 - Type 2 diabetes mellitus with hyperglycemia, I10 - Essential (primary) hypertension, I48.0 - Paroxysmal atrial fibrillation Microalbumin, Random (w Creat) Today E11.65 - Type 2 diabetes mellitus with hyperglycemia, I10 - Essential (primary) hypertension, I48.0 - Paroxysmal atrial fibrillation TSH reflex Free T4 Today E11.65 - Type 2 diabetes mellitus with hyperglycemia, I10 - Essential (primary) hypertension, I48.0 - Paroxysmal atrial fibrillation Hemoglobin A1c Today E11.65 - Type 2 diabetes mellitus with hyperglycemia, I10 - Essential (primary) hypertension, I48.0 - Paroxysmal atrial fibrillation Liver Panel Today E11.65 - Type 2 diabetes mellitus with hyperglycemia, I10 - Essential (primary) hypertension, I48.0 - Paroxysmal atrial fibrillation Medications: New doxycycline hyclate 100 mg PO BID 10 caps 0RF sertraline Take 1/2 tab daily x 7 days, then take 1 tab daily 50 mg PO DAILY 90 tabs 1RF
[2025-03-22 13:36] VITALS: BP 124/60; PULSE 79; RESP 16; TEMP 36.3; O2SAT 98; BMI 34.6
--- OUTSIDE RECORDS SUMMARY | 2025-03-22 15:37 | XMS_ITS | Clinical Summary ---
Author Organization [address] Address [address] [place] [address] Phone Care Team Providers Care Harbor Police Launch Commander Name Role Phone Sánchez Metzger MD Primary Care Provider [phone] Medications insulin lispro (HumaLOG KwikPen Insulin) 100 [...] [place] [id number] Care Teams [employer] Launch Commander Relationship Specialty Start Date End Date Sánchez Metzger MD [address] [place] [address] [facility] Lauren [place], [place] PCP - General Toe Stapler 03/11/18
--- OUTSIDE RECORDS SUMMARY | 2025-03-22 15:37 | XMS_ITS | Encounter Summary ---
Author Organization [facility] Address [address] [place] [address] Care Team Providers Care Immigration Investigator Name Role Phone Sánchez Metzger MD Primary Care Provider [phone] Encounter Details Date Type Department Care Team (Late st Contact Info) Description 06/19/2024 Lab Requisition [facility] - Main Lab [address] [facility] [place] [id number] Kinga Velasquez PA [address] [place] [address] Benign essential microscopic hematuria Social History Tobacco [...] Scant urothelial cellularity. 07/03/2024 3:35 PM EST [facility] Clinical Information [id number] Urine w/reflex UroVysion. 07/03/2024 3:35 PM EST [facility] Gross Description A. Urine, Voided, : [id number] RECD 1 TP CYTO 07/03/2024 3:35 PM EST [facility] Disclaimer Unless otherwise specified, all tissue is 10% NB formalin fixed and paraffin embedded. Technical pathology services provided by [facility] [address] [facility] [address] [place] [address] (CLIA #[id number]/S manuel Lira MD, Clinic Office Manager) 07/03/2024 3:35 PM EST [facility] Tissue Urine specimen from urethra / Unknown 06/15/2024 06/19/2024 1:55 PM EST Kinga STACY LAB PATHOLOGY ORDERABLES Tracey l Result [facility] [address] [place] [address], documented in this encounter Visit Diagnoses Diagnosis Benign essential microscopic hematuria documented in this encounter Care Teams Immigration Investigator Relationship Specialty Start Date End Date Sánchez Metzger MD [address] [place] PCP - General Gear Technician 03/11/18 documented as of this encounter
== END 2025-03-22 14:06 | disposition home or self-care (01) ==
LOC: HO.HMCHD 13:18
PROVIDERS: PCP Internal Medicine; Visit Provider Physician Assistant
DX: I10 Essential (primary) hypertension (principal); I48.0 Paroxysmal atrial fibrillation; F41.9 Anxiety disorder, unspecified; E11.65 Type 2 diabetes mellitus with hyperglycemia

== ENCOUNTER → 2025-03-22 13:18 | Outpatient (BNVA) | payer MEDICARE, SELFPAY | PROVIDERS: PCP Internal Medicine; Visit Provider Physician Assistant | DX: I10 Essential (primary) hypertension (principal); I48.0 Paroxysmal atrial fibrillation; F41.9 Anxiety disorder, unspecified; E11.65 Type 2 diabetes mellitus with hyperglycemia; K21.9 Gastro-esophageal reflux disease without esophagitis; E03.9 Hypothyroidism, unspecified; Z79.01 Long term (current) use of anticoagulants; Z79.84 Long term (current) use of oral hypoglycemic drugs; Z79.899 Other long term (current) drug therapy | CPT/HCPCS: 99212 ==

== ENCOUNTER 2025-03-26 10:10 | Outpatient (REF) | payer MEDICARE, SELFPAY ==
--- OUTSIDE RECORDS SUMMARY | 2025-03-26 11:36 | XMS_ITS | Clinical Summary ---
Author Organization [address] Address [address] [place] [address] Phone Care Team Providers Care Laboratory Associate Name Role Phone Sánchez Metzger MD Primary Care Provider [phone] Medications insulin lispro (HumaLOG KwikPen Insulin) 100 [...] [place] - [place] [id number] Care Teams Laboratory Associate Relationship Specialty Start Date End Date Sánchez Metzger MD [address] [place] [address] [facility] Lauren [place], [place] PCP - General Meat Boner And Slicer 03/11/18
--- OUTSIDE RECORDS SUMMARY | 2025-03-26 11:36 | XMS_ITS | Clinical Summary ---
Author Organization [facility] [place] Address [address] [place] [address] Care Team Providers Care Piano And Organ Refinisher Name Role Phone Unavailable Primary Care Provider Unavailabl e Social History Tobacco Use Types Packs/Day Years Used Date Smoking Tobacco: Never Assessed Comments Unknown Sex and Gender Information Value Date Recorded Sex Assigned at Not on file Legal Sex Female 6:34 PM EST Gender Identity Not on file Sexual Orientation Not on file Plan of Treatment Health Maintenance Due Date Last Done Comments Advance Care Planning 1950 Hepatitis C Virus Screening 1950 DTaP/Tdap/Td Vaccines (1 - Tdap) 1971 Pneumococcal Vaccines 50+ (1 of 1 - PCV) 2002 Zoster (Shingles) Vaccine (1 of 2) 2002 COVID-19 Vaccine ( - 2023-2 5 season) 2025 RSV Vaccine 60 years and old er and Patients (1 - 1-dose 75+ series) 2027 Hepatitis B Vaccines Aged Out No long er eligible based on patient's age to complete this topic
--- OUTSIDE RECORDS SUMMARY | 2025-03-26 11:36 | XMS_ITS | Encounter Summary ---
Author Organization [facility] Address [address] [place] [address] Care Team Providers Care Window Repairer Name Role Phone Sánchez Metzger MD Primary Care Provider [phone] Encounter Details Date Type Department Care Team (Late st Contact Info) Description 06/19/2024 Lab Requisition [facility] - Main Lab [address] [facility] [place] [phone] Kinga Velasquez PA [address] [place] [address] Benign essential microscopic hematuria Social History Tobacco [...] Scant urothelial cellularity. 07/03/2024 3:35 PM EST [facility] Clinical Information [id number] Urine w/reflex UroVysion. 07/03/2024 3:35 PM EST [facility] Gross Description A. Urine, Voided, : [id number] RECD 1 TP CYTO 07/03/2024 3:35 PM EST [facility] Disclaimer Unless otherwise specified, all tissue is 10% NB formalin fixed and paraffin embedded. Technical pathology services provided by [facility] at [address] [facility] [address] [place] [address] (CLIA #[id number]/S manuel Lira MD, Steward[employer]) 07/03/2024 3:35 PM EST [facility] Tissue Urine specimen from urethra / Unknown 06/15/2024 06/19/2024 1:55 PM EST Kinga STACY LAB PATHOLOGY ORDERABLES Tracey l Result [facility] [address] [place] [address], documented in this encounter Visit Diagnoses Diagnosis Benign essential microscopic hematuria documented in this encounter Care Teams Window Repairer Relationship Specialty Start Date End Date Sánchez Metzger MD [address] [place] PCP - General Quickbooks Bookkeeper 03/11/18 documented as of this encounter
--- OUTSIDE RECORDS SUMMARY | 2025-03-26 11:36 | XMS_ITS | Encounter Summary ---
Author Organization [facility] Address [address] [place] [address] Care Team Providers Care Level Vial Marker Name Role Phone Unavailable Primary Care Provider Unavailabl e Encounter Details Date Type Department Care Team (Late st Contact Info) Description 01/06/2020 Documentation [facility] IP [address] [place] [phone] Frances Sosa [address] [place] [address] Social History Tobacco Use Types [...]
[2025-03-26 13:47] LABS: Hemoglobin A1C 179.1635 umol/L; Total Hemoglobin (HGBA1C) 3217.4829 umol/L
[2025-03-26 14:05] LABS: Alanine Aminotransferase 17 U/L (0-31); Albumin Level 4.6 g/dL (3.5-5.0); Alkaline Phosphatase 70 U/L (39-117); Anion Gap 11 (12-20); Aspartate Amino Transferase 22 U/L (5-31); Blood Urea Nitrogen 15 mg/dL (9-16); Calcium 9.4 mg/dL (8.4-10.2); Carbon Dioxide 30 mmol/L (22-29); Chloride 102 mmol/L (96-108); Cholesterol 128 mg/dL (<200); Estimated Glomerular Filt Rate > 60; HDL Cholesterol 51 mg/dL (>40); Potassium 4.3 mmol/L (3.3-5.1); Sodium 139 mmol/L (135-145); Total Protein 7.5 g/dL (6.5-8.0); Triglycerides 60 mg/dL (<150)
[2025-03-26 14:24] LABS: Microalbum/Creatinine Ratio Ur 7.2 ug/mg cr (<30)
== END 2025-03-26 10:11 | disposition home or self-care (01) ==
LOC: HO.10HDL 10:10
PROVIDERS: Visit Provider Physician Assistant
DX: I10 Essential (primary) hypertension (principal); I48.0 Paroxysmal atrial fibrillation; E11.65 Type 2 diabetes mellitus with hyperglycemia
CPT/HCPCS: 36415; 80048; 80061; 80076; 82043; 82570; 83036; 84443

== ENCOUNTER 2025-04-19 10:41 | Outpatient (AMB) | payer MEDICARE, SELFPAY ==
[2025-04-19 10:51] VITALS: BP 130/68; PULSE 86; O2SAT 97; BMI 34.5
--- NOTE | 2025-04-19 10:51 | MHC.OFFVIS ---
Vital Signs 04/19/25 10:51 Height 5 ft 5.5 in Weight 210 lb 8.663 oz BMI 34.5 BP 130/68 Blood Pressure Location Lt brachial Position Sitting Pulse 86 Pulse Source Pulse Oximeter Pulse Oximetry (%) 97 Oxygen Delivery Method Room Air Intake Visit Reasons: COPD Intake Note: pt is here for follow up from THUY, she gets stuffy in am from cpap. Apartment Maintenance Worker Required: No Supervisor Steffen [facility]: Supervisor [facility] House offered & declined Allergies Sulfa (Sulfonamide Antibiotics) (SULFA (SULFONAMIDE ANTIBIOTICS)) Allergy (Intermediate, Verified 04/19/25 11:04) RASH MONSULFITES Allergy (Severe, Uncoded 04/19/25 11:04) ANAPHYLAXIS Medication List - Last Reconciled 04/19/25 by Rah Gould MD apixaban (Eliquis) 5 mg PO BID cholecalciferol (vitamin D3) 100 mcg PO DAILY diltiazem HCl CD 180 mg PO DAILY flecainide 50 mg PO Q12H levothyroxine (Synthroid) 100 mcg PO DAILY metformin ER 1,000 mg (2 x 500 mg) PO BID 90 days pantoprazole 40 mg PO DAILY 90 days rosuvastatin (Crestor) 40 mg PO DAILY sertraline 50 mg PO DAILY sumatriptan succinate take 1 tab at onset of headache; if no relief may repeat 1 tab after at least 2 hrs; max = 4 tabs/24 hr PO triamcinolone acetonide 0.5% 1 appl topical DAILY PRN vibegron (Gemtesa) 75 mg PO DAILY Do you need a note to return to daycare/school/sports/work: No HPI HPI COPD: Details: Cecilia is 75 years old female, with chronic atrial fibrillation, obesity and obstructive sleep apnea. She is here for follow-up of. Sleep apnea and use of the CPAP She is very compliant using CPAP every night for 7-8 hours, and sleeps well. She has no issue with the CPAP machine or the mask. In the morning when she wakes up she feels somewhat congested in the nose and throat but it clears within a short period of time. She had a recent trip to [place] and just came back and stayed very well over the. She has lost a few lb of weight and feels good about this. [facility] Medical History Ocular migraine Anxiety Seborrheic keratoses Pulsatile tinnitus HTN (hypertension) Obesity (BMI 30-39.9) Taste disorder Bilateral carotid artery stenosis Nocturnal hypoxemia Cholesterol retinal embolus of right eye Paroxysmal atrial fibrillation Surgical History History of colonoscopy (~03/29/17) History of section History of knee surgery Family History Father CVD (cardiovascular disease) Mother No problems noted. Social History Housing: House Alcohol intake: never Patient Tobacco Use Status: Former Tobacco user service: No Current occupational status: retired Cognitive needs: No Hearing needs: No Vision needs: Yes (rx glasses) Review of Systems Const All systems reviewed & are unremarkable except as noted in HPI and below Eyes Reports no additional complaints ENT Reports dry mouth (MILD OFF AND ON, RESIDUAL FROM THE COVID INFECTION, LAST YEAR.) and Reports other (Change in taste , resulted from COVID infection last year, only mild.) Card Reports no additional complaints, Denies irregular heart rhythm (She has had no recurrence of atrial fib since she started using CPAP) and Denies leg edema Resp Reports no additional complaints GI Reports other (Change in her taste, recent) Musc Reports no additional complaints Skin/Breast Reports system reviewed and no additional complaints, except as documented Neuro Reports no additional complaints Psych Reports no additional complaints Physical Exam Vital Signs: Last Vital Signs Pulse 86 04/19/25 10:51 BP 130/68 04/19/25 10:51 Pulse Ox 97 04/19/25 10:51 Oxygen Delivery Method Room Air 04/19/25 10:51 BMI result Body Mass Index 34.5 Const General: healthy appearing, comfortable, no acute distress, alert and awake Orientation/consciousness: patient oriented x3 HEENT Head: Yes normal to inspection General nose exam: No nasal polyps present and No nasal discharge present Face and sinus: Yes sinuses nontender Mouth: oropharynx normal Throat: Yes posterior oropharynx normal Eyes General: appearance normal, both eyes and all related structures Neck Neck: Yes normal visual inspection, Yes no lymphadenopathy, Yes trachea midline and Yes no JVD Thyroid: Thyroid normal Chest Chest palpation & inspection: normal inspection of the chest and no tenderness Resp Effort & Inspection: normal respiratory effort Auscultation: clear to auscultation bilaterally, no crackles and no wheezes Percussion: percussion normal Cardio Palpation: normal PMI Rate: regular rate Rhythm: regular rhythm Heart sounds: no gallops and no murmurs GI Palpation (GI): Soft to palpation, nontender, No hepatosplenomegaly present and no masses Auscultation: normal bowel sounds Back/Spine/Pelvis Thoracic/Lumbar Spine: thoracic and lumbar spine normal to inspection Skin General skin exam: no rashes or lesions noted Neuro General: patient oriented x3 and no focal motor deficits Cranial nerves: Yes CN's II-XII intact bilaterally Extrem General: Yes normal to inspection, Yes no clubbing, cyanosis or edema and Yes no calf tenderness Psych Appearance: grossly normal and well kempt Speech and movement: Normal speech and movement present Results Reviewed Results Reviewed: Compliance report for the last 30 nights is reviewed. She has used 29/30 nights,. 97% Average use it per. Night 8 hours 8 minutes No significant air leak, Residual AHI 0.4 Assessment & Plan Assessment & Plan (1) THUY (obstructive sleep apnea): Comment: Known case of obstructive sleep apnea . DX in 2020 Being treated with CPAP, which she uses very regularly. Sleep is much better, and more than 8 hours per night. Compliance is 100%. Code(s): G47.33 - Obstructive sleep apnea (adult) (pediatric) Category: Medical Plan: Commended for good compliance. Advised to continue using CPAP regularly every night. (2) Obesity (BMI 30-39.9): Comment: Patient is moderately obese, TRIES TO WATCH HER DIET AND REMAINS PHYSICALLY ACTIVE. WEIGHT HIS BASICALLY UNCHANGED. Code(s): E66.9 - Obesity, unspecified Category: Medical Plan: Again discussed about diet and need to do some exercise daily . She still needs to lose more weight. Coding Level of Care Code Est Pt Level 3 (43897) Diagnoses THUY (obstructive sleep apnea) G47.33 Obesity (BMI 30-39.9) E66.9
--- OUTSIDE RECORDS SUMMARY | 2025-04-19 12:46 | XMS_ITS | Encounter Summary ---
Author Organization [facility] Address [address] [place] [address] Care Team Providers Care Testing Tech Name Role Phone Unavailable Primary Care Provider Unavailabl e Encounter Details Date Type Department Care Team (Late st Contact Info) Description 01/06/2020 Documentation [facility]ARE [facility] IP [address] [place] [phone] Frances Sosa [address] [place] [address] Social History Tobacco Use Types [...]
--- OUTSIDE RECORDS SUMMARY | 2025-04-19 12:46 | XMS_ITS | Clinical Summary ---
Author Organization [address] Address [address] [place] [address] Phone Care Team Providers Care Entry Operator Name Role Phone Sánchez Metzger MD Primary Care Provider [phone] Medications insulin lispro (HumaLOG KwikPen Insulin) 100 [...] Last Done Comments Breast Cancer Screening 1950 Colorectal Cancer Screening: Colonoscopy 1950 DTaP,Tdap,and Td Vaccines (1 - Tdap) 1971 Pneumococcal Vaccine: 50+ Ye ars (1 of 2 - PCV) 1971 Zoster Vaccines (1 of 2) 2002 Falls Risk Assessment 08/13/2023 Hepatitis C Screening 08/13/2023 Medicare Annual Wellness Visit 08/13/2023 Osteoporosis Screening (Bone Density Screening) 08/13/2023 Social Influencers of Health Screening 08/13/2023 Depression Screening 07/15/2024 COVID-19 Vaccine ( - 2023-2 5 season) 2025 Influenza Vaccine (#1) 2025 RSV Immunization Adult [...] [place]OSS - [place] [id number] Care Teams Entry Operator Relationship Specialty Start Date End Date Sánchez Metzger MD [address] [place] [address] [facility] Lauren [place], [place] PCP - General Director Export 03/11/18
--- OUTSIDE RECORDS SUMMARY | 2025-04-19 12:46 | XMS_ITS | Encounter Summary ---
Author Organization [facility] Address [address] [place] [address] Care Team Providers Care Gas Pumping Station Operator Name Role Phone Sánchez Metzger MD Primary Care Provider [phone] Encounter Details Date Type Department Care Team (Late st Contact Info) Description 06/19/2024 Lab Requisition [facility] - Main Lab [address] [facility] [place] [phone] Kinga Velasquez PA [address] [place] [address] Benign essential microscopic hematuria Social History Tobacco [...] Scant urothelial cellularity. 07/03/2024 3:35 PM EST [facility] Clinical Information [id number] Urine w/reflex UroVysion. 07/03/2024 3:35 PM EST [facility] Gross Description A. Urine, Voided, : [id number] RECD 1 TP CYTO 07/03/2024 3:35 PM EST [facility] Disclaimer Unless otherwise specified, all tissue is 10% NB formalin fixed and paraffin embedded. Technical pathology services provided by [facility] [address] [facility] [address] [place] [address] (CLIA #[id number]/S manuel Lira MD, Defense Attorney) 07/03/2024 3:35 PM EST [facility] Tissue Urine specimen from urethra / Unknown 06/15/2024 06/19/2024 1:55 PM EST Kinga STACY LAB PATHOLOGY ORDERABLES Tracey l Result [facility] [address] [place] [address], documented in this encounter Visit Diagnoses Diagnosis Benign essential microscopic hematuria documented in this encounter Care Teams Gas Pumping Station Operator Relationship Specialty Start Date End Date Sánchez Metzger MD [address] [place] PCP - General Manager School 03/11/18 documented as of this encounter
--- OUTSIDE RECORDS SUMMARY | 2025-04-19 12:46 | XMS_ITS | Clinical Summary ---
Author Organization [facility] Address [address] [place] [address] Care Team Providers Care Hose Inspector And Patcher Name Role Phone Unavailable Primary Care Provider [...]
== END 2025-04-19 11:05 | disposition home or self-care (01) ==
LOC: HO.HPS 10:42
PROVIDERS: PCP Internal Medicine; Visit Provider Internal Medicine
DX: G47.33 Obstructive sleep apnea (adult) (pediatric) (principal); E66.9 Obesity, unspecified
CPT/HCPCS: 99213

== ENCOUNTER 2025-04-19 10:41 | Outpatient (REF) | payer MEDICARE, SELFPAY ==
[2025-04-19 11:28] LABS: MANUAL DIFF FLAG NO
[2025-04-19 11:45] LABS: Hematocrit 35.6 % (37.0-47.0); Hemoglobin 12.2 g/dl (12.0-16.0); Imm Gran Abs Auto 0.01 X10*3/uL (0.00-0.03); Imm Gran Pct Auto 0.2 % (0.0-0.4); Lymphocytes Absolute Auto 1.4 X10*3/uL (1.2-4.9); Mean Corpuscular HGB Conc 34.3 g/dl (31.0-35.0); Mean Corpuscular Hemoglobin 31.1 pg (27.0-33.0); Mean Corpuscular Volume 90.8 fL (80.0-98.0); NRBC Abs Auto 0.000 X10*3/uL (0.0-0.012); NRBC Pct Auto 0.0 /100WBC (0.0-0.2); Platelet Count 291 X10*3/uL (160-400); Red Blood Count 3.92 X10*6/uL (4.20-5.50); White Blood Count 6.5 X10*3/uL (4.8-10.8)
[2025-04-19 12:31] LABS: Alanine Aminotransferase 19 U/L (0-31); Albumin Level 4.4 g/dL (3.5-5.0); Alkaline Phosphatase 72 U/L (39-117); Anion Gap 11 (12-20); Aspartate Amino Transferase 21 U/L (5-31); Blood Urea Nitrogen 15 mg/dL (9-16); Calcium 9.6 mg/dL (8.4-10.2); Carbon Dioxide 28 mmol/L (22-29); Chloride 103 mmol/L (96-108); Cholesterol 127 mg/dL (<200); Estimated Glomerular Filt Rate > 60; HDL Cholesterol 40 mg/dL (>40); Potassium 4.5 mmol/L (3.3-5.1); Sodium 137 mmol/L (135-145); Total Protein 7.4 g/dL (6.5-8.0); Triglycerides 79 mg/dL (<150)
== END 2025-04-19 10:42 | disposition home or self-care (01) ==
LOC: HO.LAB 10:41
PROVIDERS: Internal Medicine; Absent Provider Physician Assistant; PCP Physician Assistant; Visit Provider Internal Medicine
DX: G47.33 Obstructive sleep apnea (adult) (pediatric) (principal); E66.9 Obesity, unspecified; E11.9 Type 2 diabetes mellitus without complications; Z13.0 Encounter for screening for diseases of the blood and blood-forming organs and certain disorders involving the immune mechanism; Z68.34 Body mass index [BMI] 34.0-34.9, adult; Z79.84 Long term (current) use of oral hypoglycemic drugs; Z79.890 Hormone replacement therapy
CPT/HCPCS: 36415; 80053; 80061; 83036; 85025; 86140; 99212

== ENCOUNTER 2025-04-21 14:53 | Outpatient (REF) | payer MEDICARE, SELFPAY | END 2025-04-21 14:54 | disposition home or self-care (01) | LOC: HO.LAB 14:53 | PROVIDERS: PCP Physician Assistant; Visit Provider Physician Assistant | DX: G43.109 Migraine with aura, not intractable, without status migrainosus (principal); R43.9 Unspecified disturbances of smell and taste | CPT/HCPCS: 36415; 85652; 86140 ==

== ENCOUNTER 2025-05-31 12:13 | Outpatient (AMB) | payer MEDICARE, SELFPAY ==
[2025-05-31 12:33] VITALS: BP 128/62; PULSE 86; BMI 34.5
--- NOTE | 2025-05-31 12:33 | A.OFFVIS_ITS ---
Vital Signs 05/31/25 12:33 Height 5 ft 5 in Weight 207 lb 3.752 oz BMI 34.5 BP 128/62 Blood Pressure Location Lt brachial Position Sitting Pulse 86 Pulse Source Monitor Intake Visit Reasons: 1 yr f/up Allergies Sulfa (Sulfonamide Antibiotics) (SULFA (SULFONAMIDE ANTIBIOTICS)) Allergy (Intermediate, Verified 04/19/25 11:04) RASH MONSULFITES Allergy (Severe, Uncoded 04/19/25 11:04) ANAPHYLAXIS Medication List - Last Reconciled 05/31/25 by Munir Ramirez MD apixaban (Eliquis) 5 mg PO BID cholecalciferol (vitamin D3) 100 mcg PO DAILY diltiazem HCl CD 180 mg PO DAILY levothyroxine (Synthroid) 100 mcg PO DAILY metformin ER 1,000 mg (2 x 500 mg) PO BID 90 days pantoprazole 40 mg PO DAILY 90 days rosuvastatin (Crestor) 40 mg PO DAILY vibegron (Gemtesa) 75 mg PO DAILY HPI Comments Details: Cecilia returns for follow-up regarding atrial fibrillation. She was taking diltiazem/flecainide with Eliquis and was doing okay but more recently had more episodes leading to EP consultation and ablation 2 weeks ago. After that, she states she is feeling good. No new concerns. No further cardiac symptoms at this time. No angina. [facility] Medical History (Updated 05/31/25 @ 12:39 by Munir Ramirez MD) Hypothyroidism Ocular migraine Anxiety Seborrheic keratoses Pulsatile tinnitus HTN (hypertension) Obesity (BMI 30-39.9) Taste disorder Bilateral carotid artery stenosis Nocturnal hypoxemia Cholesterol retinal embolus of right eye Paroxysmal atrial fibrillation Surgical History History of colonoscopy (~03/29/17) History of section History of knee surgery Family History Father CVD (cardiovascular disease) Mother No problems noted. Social History Housing: House Alcohol intake: never Patient Tobacco Use Status: Former Tobacco user service: No Current occupational status: retired Cognitive needs: No Hearing needs: No Vision needs: Yes (rx glasses) Review of Systems Const Denies weakness ENT Denies dizziness Card Denies chest pain, Denies chest pain with activity, Denies syncope, Denies rapid heart rate, Denies pedal edema, Denies edema, Denies leg edema, Denies lightheadedness, Denies palpitations, Denies dyspnea, Denies dyspnea on exertion and Denies orthopnea Resp Denies cough, Denies dyspnea and Denies dyspnea on exertion GI Denies hematochezia and Denies change in stool character Musc Denies abnormal gait, Denies muscle cramps, Denies muscle weakness, Denies numbness, Denies radiating pain into limb and Denies tingling Neuro Denies abnormal gait, Denies dizziness, Denies syncope, Denies numbness, Denies tingling and Denies weakness Endo Denies palpitations Physical Exam Vital Signs: Last Vital Signs Pulse 86 05/31/25 12:33 BP 128/62 05/31/25 12:33 BMI result Body Mass Index 34.5 Const General: comfortable and no acute distress Orientation/consciousness: patient oriented x3 HEENT Other: Unremarkable Head: Yes normal to inspection Neck Neck: Yes normal visual inspection Chest Chest palpation & inspection: normal inspection of the chest Resp Auscultation: clear to auscultation bilaterally Cardio Palpation: normal PMI Heart sounds: S1 normal heart sound present, S2 normal heart sound present, no gallops, no murmurs and no rubs GI Palpation (GI): Soft to palpation Back/Spine/Pelvis Other: unremarkable Skin General skin exam: no rashes or lesions noted Neuro General: patient oriented x3 Extrem General: Yes normal to inspection Psych Mental Status: mental status grossly normal Assessment & Plan Assessment & Plan (1) Paroxysmal atrial fibrillation: Code(s): I48.0 - Paroxysmal atrial fibrillation Category: Medical Plan: Previously maintained on Diltiazem and Flecainide. Earlier this month, she underwent pulmonary vein isolation. Now off flecainide. Continue diltiazem and Eliquis. (2) Cholesterol retinal embolus of right eye: Code(s): H34.211 - Partial retinal artery occlusion, right eye Category: Medical Plan: Possibly related to carotid disease. In the most recent carotid ultrasound at [facility], 1-49% stenosis on the right internal carotid artery and 70-99% in the left side. She remains on statins. Per patient, she is due to get a CTA through vascular surgery and then decide further. (3) Bilateral carotid artery stenosis: Code(s): I65.23 - Occlusion and stenosis of bilateral carotid arteries Category: Medical Plan: Recent carotid ultrasound and plan as above. (4) Atherosclerotic cardiovascular disease: Code(s): I25.10 - Atherosclerotic heart disease of [place] coronary artery without angina pectoris Category: Medical Plan: In the pulmonary vein CT scan, description of severe coronary artery calcification. Clinically, no angina. We will perform myocardial perfusion imaging study. She plans to go to [place] for the winter months and we will try to coordinate with the testing accordingly. (5) THUY (obstructive sleep apnea): Comment: Known case of obstructive sleep apnea . DX in 2020 Being treated with CPAP, which she uses very regularly. Sleep is much better, and more than 8 hours per night. Compliance is 100%. Code(s): G47.33 - Obstructive sleep apnea (adult) (pediatric) Category: Medical Plan: Continue CPAP. Plan Discussion Notes I discussed with the patient the importance of continuing Eliquis despite the successful ablation due to the risk of stroke, especially given her age. We also talked about the need for a stress test to evaluate her cardiac function further and the potential for a CT scan to assess carotid artery stenosis. The patient was informed about the findings of coronary artery calcification and the importance of maintaining her current statin therapy. Patient was informed and verbally consented to the use of an ambient scribe for clinic note documentation during this visit. Orders: Orders NM cardiolite stress test Today I25.10 - Atherosclerotic heart disease of [place] coronary artery without angina pectoris, R07.2 - Precordial pain CA stress test Today I25.10 - Atherosclerotic heart disease of [place] coronary artery without angina pectoris, R07.2 - Precordial pain Patient Instructions: - Continue taking Diltiazem and Eliquis as prescribed. - Schedule and complete the stress test. - Monitor for any new or worsening symptoms and report them promptly. Coding Level of Care Code Est Pt Level 4 (29203) Complex EM visit Add On G2211 Diagnoses Paroxysmal atrial fibrillation I48.0 Cholesterol retinal embolus of right eye H34.211 Bilateral carotid artery stenosis I65.23 Atherosclerotic cardiovascular disease I25.10 THUY (obstructive sleep apnea) G47.33
== END 2025-05-31 12:57 | disposition home or self-care (01) ==
LOC: HO.HCS 12:14
PROVIDERS: PCP Internal Medicine; Visit Provider Internal Medicine
DX: I48.0 Paroxysmal atrial fibrillation (principal); H34.211 Partial retinal artery occlusion, right eye; I65.23 Occlusion and stenosis of bilateral carotid arteries; I25.10 Atherosclerotic heart disease of native coronary artery without angina pectoris; G47.33 Obstructive sleep apnea (adult) (pediatric)
CPT/HCPCS: 93010; 99214; G2211

== ENCOUNTER → 2025-05-31 12:13 | Outpatient (BNVA) | payer MEDICARE, SELFPAY | PROVIDERS: PCP Internal Medicine; Visit Provider Internal Medicine | DX: I25.10 Atherosclerotic heart disease of native coronary artery without angina pectoris (principal); R07.2 Precordial pain; G47.33 Obstructive sleep apnea (adult) (pediatric); Z99.89 Dependence on other enabling machines and devices; I48.0 Paroxysmal atrial fibrillation; H34.211 Partial retinal artery occlusion, right eye; I65.23 Occlusion and stenosis of bilateral carotid arteries | CPT/HCPCS: 93005; 99212 ==

== ENCOUNTER 2025-06-21 10:10 | Outpatient (REF) | payer MEDICARE, SELFPAY ==
--- NOTE | ~2025-06-21 | MM_ITS ---
EXAMINATION: MM SCREENING DIGITAL BREAST TOMOSYNTHESIS, BILATERAL CLINICAL INFORMATION: Screening. Asymptomatic. COMPARISON: Mammography: Comparison is made with available priors TECHNIQUE: Digital breast mammography with tomosynthesis is performed in both the craniocaudal and mediolateral oblique views along with computer-aided detection (CAD). FINDINGS: There are scattered areas of fibroglandular density. There are no significant masses, abnormal calcifications, or other abnormalities. MM/MM tomosynthesis screening BI IMPRESSION: No mammographic evidence of malignancy. ASSESSMENT: BI-RADS Category 1: Negative RECOMMENDATION: Routine annual mammography screening. 1 year F/U This examination should not preclude the clinical evaluation of a suspicious palpable abnormality. This patient's information was entered into a reminder system with a target due date for their next mammogram. Electronically signed by: Irene Alexis DO 06/22/2025 09:00 PM JUICE
== END 2025-06-21 10:11 | disposition home or self-care (01) ==
LOC: HO.MAMMO 10:10
PROVIDERS: PCP Physician Assistant; Visit Provider Internal Medicine
DX: Z12.31 Encounter for screening mammogram for malignant neoplasm of breast (principal)
CPT/HCPCS: 77063; 77067

== ENCOUNTER → 2025-06-21 10:30 | Outpatient (BNV) | payer MEDICARE, SELFPAY | PROVIDERS: PCP Physician Assistant; Visit Provider Internal Medicine | DX: Z12.31 Encounter for screening mammogram for malignant neoplasm of breast (principal) | CPT/HCPCS: 77063; 77067 ==

== ENCOUNTER → 2025-07-07 07:43 | Outpatient (REF) | payer MEDICARE, SELFPAY ==
--- NOTE | ~2025-07-07 | NM_ITS ---
EXERCISE MYOCARDIAL PERFUSION STUDY INDICATION: Chest pain to evaluate for myocardial ischemia TECHNIQUE: The patient was brought in for an exercise perfusion study on 07/07/2025. Patient performed exercise as per Teja protocol and was injected 30 mCi of sestamibi once target heart rate was achieved. Images were obtained using the SPECT gamma camera interlaced with the gating device. Images were obtained in supine position. Resting perfusion study was performed on 07/09/2025. Patient was administered 30 mCi of sestamibi intravenously at rest. Images were then obtained in supine position. Images were processed with the software and compared side to side in short axis, horizontal long axis and vertical long axis views. Images obtained without without CT attenuation. Total DLP 72 mGy-cm. FINDINGS: Raw images were reviewed The stress perfusion study showed nonattenuated images show small area of mildly reduced uptake in the distal anterior anteroapical wall of the LV myocardium. Remainder of the LV myocardium is normally perfused. Attenuated corrected images show mildly reduced uptake in the apex of the LV myocardium. The gated study shows normal LV systolic function with calculated LVEF of 71%. LV cavity is normal in size. The gated study shows normal systolic wall thickening and contraction of segments. Resting study shows no change in perfusion pattern compared to stress perfusion study. Gating at rest reveals normal systolic wall motion with ejection fraction at 73%. The findings are consistent with normal myocardial perfusion. NM/NM cardiolite stress test IMPRESSION: 1. Myocardial perfusion imaging study shows normal myocardial perfusion. 2. Gated LVEF is 71%. 3. Transient ischemic dilatation not present. EKG revealed negative for ischemia. Electronically signed by: Reyes Llanes MD 07/09/2025 03:49 PM [facility]
--- NOTE | 2025-07-07 07:45 | CA_ITS ---
Acquisition Time: 2025-07-07 08:01:41 Total Exercise Time: 00:05:01 Test Indications: afib Medications: see h&p Protocol: LONNIE Max HR: 150 BPM 102% of Pred: 147 BPM Max BP: 184/50 mmHG Max Work Load: 4.6 METS Exercise stress test with exercise 5 mins 1 sec of Lonnie Protocol held at Stage 1 with reduced speed to 1.4mph, with reports of SOB and fatigue, no chest pain, with isolated PVCs, with normotensive response to exercise. Without any EKG changes meeting criteria for ischemia. In recovery, breathing improved and pt feeling backt o baseline. Nuclear images pending. Test reviewed with Dr. Llanes. Referred By: Munir Ramirez Electronically Signed By: Killian Melendez
--- OUTSIDE RECORDS SUMMARY | 2025-07-07 07:46 | XMS_ITS | Clinical Summary ---
Author Organization [address] Address [address] [place] [address] Phone Care Team Providers Care Crew Boss Name Role Phone Sánchez Metzger MD Primary Care Provider [phone] Medications insulin lispro (HumaLOG KwikPen Insulin) 100 [...] Depression Screening 07/15/2024 COVID-19 Vaccine ( - 2024-2 6 season) 2025 Influenza Vaccine (#1) 2025 RSV [...] [place] - [place] [id number] Care Teams Crew Boss Relationship Specialty Start Date End Date Sánchez Metzger MD [address] [place] [address] [facility] Lauren [place], [place] PCP - General Affirmative Action Specialist 03/11/18
--- OUTSIDE RECORDS SUMMARY | 2025-07-07 07:46 | XMS_ITS | Clinical Summary ---
Author Organization [facility] Address [address] [place] [address] Care Team Providers Care Bobbin Disker Name Role Phone Unavailable Primary Care Provider [...] of 2) 2002 COVID-19 Vaccine ( - 2024-2 6 season) 2025 RSV Vaccine 50 years and old er and Patients (1 - 1-dose 75+ series) 2027 Hepatitis B Vaccines Aged Out No long er eligible based on patient's age to complete this topic
--- OUTSIDE RECORDS SUMMARY | 2025-07-07 07:46 | XMS_ITS | Encounter Summary ---
Author Organization [facility] Address [address] [place] [address] Care Team Providers Care Machinist Helper Name Role Phone Sánchez Metzger MD Primary Care Provider [phone] Encounter Details Date Type Department Care Team (Late st Contact Info) Description 06/19/2024 Lab Requisition [facility] - Main Lab [address] [facility] [place] [id number] Kinga Velasquez PA [address] [place] [address] Benign essential microscopic hematuria Social History Tobacco [...] Scant urothelial cellularity. 07/03/2024 3:35 PM EST [facility] at 1535 EST Clinical Information [id number] Urine w/reflex UroVysion. 07/03/2024 3:35 PM EST [facility] Gross Description A. Urine, Voided, : [id number] RECD 1 TP CYTO 07/03/2024 3:35 PM EST [facility] Disclaimer Unless otherwise specified, all tissue is 10% NB formalin fixed and paraffin embedded. Technical pathology services provided by [facility] at [address], [place] [address] (CLIA #[id number] manuel Lira MD, Hospital Intern) 07/03/2024 3:35 PM EST [facility] Tissue Urine specimen from urethra / Unknown 06/15/2024 06/19/2024 1:55 PM EST Kinga [facility] PATHOLOGY ORDERABLES Tracey l Result [facility] [address] [place] [address], documented in this encounter Visit Diagnoses Diagnosis Benign essential microscopic hematuria documented in this encounter Care Teams Machinist Helper Relationship Specialty Start Date End Date Sánchez Metzger MD [address] [facility] [facility] [address] [place] PCP - General Herd Tester 03/11/18 documented as of this encounter
--- OUTSIDE RECORDS SUMMARY | 2025-07-07 07:46 | XMS_ITS | Encounter Summary ---
Author Organization [facility] Address [address] [place] [address] Care Team Providers Care Bulk Driver Name Role Phone Unavailable Primary Care Provider Unavailabl e Encounter Details Date Type Department Care Team (Late st Contact Info) Description 01/06/2020 Documentation [facility] [address] [place] [id number] Frances Sosa [address] [place] [address] Social History Tobacco Use Types [...]
== END ==
LOC: HO.CARD 07:43
PROVIDERS: PCP Physician Assistant; Visit Provider Internal Medicine
DX: I25.10 Atherosclerotic heart disease of native coronary artery without angina pectoris (principal); R07.2 Precordial pain; I48.91 Unspecified atrial fibrillation
CPT/HCPCS: 78452; 93017; A9500

== ENCOUNTER → 2025-07-07 07:45 | Outpatient (BNV) | payer MEDICARE, SELFPAY | PROVIDERS: PCP Physician Assistant | DX: R07.2 Precordial pain (principal) | CPT/HCPCS: 78452; 93016; 93018 ==